=== PATIENT | female | born 1965 | race Caucasian/White ===

== ENCOUNTER 2018-11-05 16:57 | Emergency (ER) | payer SELFPAY ==
[2018-11-05 17:06] VITALS: BP 133/88; PULSE 90; RESP 16; TEMP 36.8; O2SAT 98
--- NOTE | 2018-11-05 18:03 | W.ED.GENAD ---
Discharge Plan Disposition Patient Disposition: HOME Discharge Details Chief Complaint: Cellulitis Primary Care Provider: Jemal Schmidt ED Provider: Bill Bush Home Meds and New Rx's Prescriptions: New cephalexin [Keflex] 500 mg capsule 500 mg PO QID 4 Days Qty: 16 RF: 0 doxycycline hyclate 100 mg tablet 100 mg PO BID 14 Days Qty: 28 RF: 0 Continued cyanocobalamin (vitamin B-12) [Vitamin B-12] 2,000 MCG tablet extended release 3,000 mcg PO DAILY RF: 0 ibuprofen 600 MG tablet 600 mg PO TID Qty: 30 RF: 0 trazodone 100 mg Tablet 100 mg PO QHS PRNRF: 0 Discharge Data Discharge Date/Time-TO BE ENTERED AT DEPARTURE: 11/05/18 18:29 Medical Decision Making Patient presenting to the emergency department chief complaint of rash to left inner thigh. Patient states that she felt she had a bug bite 2 and half weeks ago but now appears infected. She does states she has had this occur in the past. Physical exam shows a circular ecchymotic area surrounded by significant erythema. Patient states that erythema has spread significantly over the last 24 hours. Patient is unaware of specific type of bug that may have bit her but states due to itching she feels that it is an insect bite. Patient denies any known tick bites but states that this may also be a possibility. Given circular almost bull's-eye type nature of this tickborne illness is considered but patient denies any other systemic symptoms. Also of consideration is staph or strep infection. Given both these possibilities did offer testing to patient but due to patient not having insurance she declined these at this time. Plan to treat with Keflex for 5 days and doxycycline for 2 weeks to cover tickborne illness. Patient was agreeable to this plan of care. Return precautions were discussed along with follow-up to primary care if not improving. After discussion of diagnosis and plan of care patient has no further needs, questions, or concerns and states clear understanding to return to the emergency department for any worsening symptoms. HPI General Mode of arrival: ambulatory. Date/Time Provider Initiated Documentation: 11/05/18 17:24. Limitations to Documentation: no limitations. Information obtained by: patient and RN notes reviewed. History of Present Illness 52 year old F presents to the emergency department with the chief complaint of Infected bug bite, described as mild, with intensity rated at 4. Quality is described as burning and aching, and is localized to the left and lower extremity. Patient started experiencing this week(s) (2.5) and it has been constant. Patient notes no other symptoms.. Patient did receive the following treatments prior to arrival, none Related Data Home Medications Medication Instructions Recorded Confirmed cyanocobalamin (vitamin B-12) 3,000 mcg PO DAILY 12/25/13 11/05/18 [Vitamin B-12] ibuprofen 600 mg PO TID #30 tablet 05/19/15 11/05/18 cephalexin [Keflex] 500 mg PO QID 4 Days #16 cap 11/05/18 doxycycline hyclate 100 mg PO BID 14 Days #28 tab 11/05/18 trazodone 100 mg PO QHS PRN 11/05/18 11/05/18 Previous Rx's Medication Instructions Recorded ibuprofen 600 mg PO TID #30 tablet 05/19/15 cephalexin [Keflex] 500 mg PO QID 4 Days #16 cap 11/05/18 doxycycline hyclate 100 mg PO BID 14 Days #28 tab 11/05/18 Allergies Allergy/AdvReac Type Severity Reaction Status Date / Time Sulfa (Sulfonamide Allergy Severe Skin Rash Unverified 11/05/18 17:31 Antibiotics) pineapple Allergy Unverified 11/05/18 17:31 General Stated Complaint: Cellulitis RYLEE: 4 Review of Systems Constitutional Denies body ache(s), Denies fever(s) and Denies headache(s) ENT Denies headache(s) Musculoskeletal Denies myalgias, Denies arthralgias and Denies joint swelling Integumentary/Breasts Reports as per HPI, Denies erythema and Denies rash Neurologic Denies headache(s) and Denies paresthesias [facility] Social History Smoking/Tobacco Use Status: Current every day Alcohol Intake: current Alcohol Intake frequency: holidays/special occasions only Drug use: Never Details: tincture rub part THC, and CBC for knee pain Do you feel safe at home: Yes Do you feel safe in your relationship?: Yes Exam Const General: cooperative, comfortable, no acute distress and not ill appearing Orientation: alert, awake and oriented x3 Resp Effort & Inspection: normal respiratory effort and able to speak in complete sentences Skin General skin exam: erythema (To left inner thigh circular area with central ecchymosis), no fluctuance, no induration and purpura Neuro General: alert, awake and oriented x3 Course Vital Signs Temperature 36.8 C 11/05/18 17:06 Pulse 90 11/05/18 17:06 Respiratory Rate 16 11/05/18 17:06 Blood Pressure 133/88 11/05/18 17:06 Pulse Oximetry 98 11/05/18 17:06 Temperature 36.8 C 11/05/18 17:06 Temperature Source Temporal Artery Scan 11/05/18 17:06 Pulse 90 11/05/18 17:06 Respiratory Rate 16 11/05/18 17:06 Respiratory Effort Non-Labored 11/05/18 17:26 Blood Pressure 133/88 11/05/18 17:06 Blood Pressure Position Sitting 11/05/18 17:06 Pulse Oximetry 98 11/05/18 17:06 Oxygen Delivery Method Room Air 11/05/18 17:06 Oxygen Flow Rate 0 11/05/18 17:06
[2018-11-05] MEDS: Cephalexin 500 MG CAP 1500 MG PO (18:30)
[2018-11-05] MEDS: Doxycycline Hyclate 100 MG CAP PO (18:30)
== END 2018-11-05 18:29 | disposition home or self-care (01) ==
PROVIDERS: Emergency Provider Nurse Practitioner Family; PCP Internal Medicine
DX: L03.116 Cellulitis of left lower limb (principal)
CPT/HCPCS: 99283

== ENCOUNTER 2018-11-23 10:26 | Outpatient (CLI) | payer SELFPAY ==
--- NOTE | 2018-11-23 09:10 | DI.RAD_ITS ---
SYMPTOM/DIAGNOSIS: KNEE PAIN RIGHT KNEE: 11/23 Three views were obtained. There is marked narrowing of medial tibial femoral cartilaginous joint space with adjacent sclerosis and flattening of the tibial plateau and medial femoral condyle. There is slight medial femoral subluxation on the tibia. Prominent marginal osteophytes are noted involving the joints of the knee. Mild subchondral sclerosis of femur and tibia at the medial joint. 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
--- NOTE | 2018-11-23 09:10 | DI.RAD_ITS ---
SYMPTOM/DIAGNOSIS: LEFT KNEE PAIN LEFT KNEE 11/23 Three views were obtained. There is marked narrowing of the medial tibiofemoral cartilaginous joint space. There is subchondral sclerosis of tibial plateau medially. There are prominent marginal osteophytes of the joints of the knee. CONCLUSION: Severe DJD most marked involving medial tibial femoral joint,
== END 2018-11-23 10:46 ==
PROVIDERS: PCP Internal Medicine; Visit Provider Student in an Organized Health Care Education/Training Program
DX: M25.562 Pain in left knee (principal); M17.0 Bilateral primary osteoarthritis of knee; M25.762 Osteophyte, left knee; M25.561 Pain in right knee; M25.761 Osteophyte, right knee
CPT/HCPCS: 73562

== ENCOUNTER 2018-12-27 09:01 | Outpatient (CLI) | payer SELFPAY ==
--- NOTE | 2018-12-27 08:55 | DI.RAD_ITS ---
EXAM: XR STANDING ALIGNMENT INDICATION: pre-op right TKA. COMPARISON: No exams were available for comparison TECHNIQUE: 2D digital imaging was performed. FINDINGS: The leg length study reveals the left leg measures 8.2 cm. The right leg measures 8.7 cm. Note is m ny of degenerative changes involving both knees.
== END 2018-12-27 09:21 ==
PROVIDERS: PCP Internal Medicine; Visit Provider Physician Assistant
DX: M17.0 Bilateral primary osteoarthritis of knee (principal); M21.70 Unequal limb length (acquired), unspecified site
CPT/HCPCS: 77073

== ENCOUNTER 2018-12-27 09:19 | Outpatient (CLI) | payer SELFPAY ==
--- NOTE | 2018-12-27 07:59 | HPE_ITS ---
Assessment and Plan Assessment and plan (1) Primary osteoarthritis of right knee: Status: Chronic Assessment and plan: Plan: Patient does have history of white blistering skin rash following sulfa medications; denies any anaphylaxis reaction. Standin g alignment films ordered for preoperative planning. Educated patient on surgery covering surgical technique, recovery process, benefits and risks including but not limited to risk of infection, blood clot, damage to soft tissue/blood vessels/nerves in detail. After discussion patient gives verbal understanding of risks and elects to proceed with scheduling surgery. Patient had opportunity to have questions answered to their satisfaction. They will contact office if issues arise. Patient will continue to be scheduled for right total knee replacement with Dr. Vivar. In addition patient wishes to receive Depo-Medrol injection in her left knee at time of right total knee replacement. Will discuss patient's request with Dr. Vivar. History of Present Illness Narrative: Ms. Samayoa is a 53-year-old female who presents to clinic for pre- operative exam for scheduled right TKA. She has been experiencing bilateral knee discomfort with the right being slightly more aggravated. She is status post right knee arthroscopy by Dr. Crow ~10 years ago. Patient had been seen at [facility] for her bilateral knee pain and received an offloader brace for the right knee which helped to decrease her pain for a few years but no longer offers relief. In addition she has tried bilateral injections over >8 years ago without symptomatic improvement on the right and had some relief on the left knee. She continues to experience bilateral knee pain that is aggravated with descending hills/stairs and walking on uneven ground. She also experiences stiffiness in the morning that is worse with prolonged time on her feet. Her right knee will also swell and feels like there is a lateral shift with her tibia that causes her to be off balance. Denies any recent falls or injuries. Previously she had been experiencing a pain that radiated down her calf but states it is not occurring now due to changing her shifts to work at night instead. Due to her continued discomfort despite injections, bracing and adapting activity she was offered and elected to proceed with right TKA. Patient reports over the past month her left knee has been aggravating her more severely. Patient is interested in receiving a Depo-Medrol injection in her left knee at time of right total knee replacement. Pertinent Surgical Information Denies past medical history of: Hypertension, stroke, cardiac issues, angina, asthma, COPD, sleep apnea, renal issues, liver issues, hepatitis, gastrointes tinal issues, ulcers, hyperlipidemia, bleeding disorders, seizures, migraines, anxiety, diabetes, autoimmune disorders, thyroid issues Denies prior complications from surgery or anesthesia. Review of Systems Constitutional Constitutional: Denies fever(s), Denies frequent falls and Denies headache(s) Eyes Eyes: Denies change in vision ENT Ears, Nose, Mouth, and Throat: Denies dizziness, Denies ear discharge, Denies headache(s), Denies epistaxis, Denies nasal discharge, Denies sinus pain, Denies sinus pressure and Denies sore throat Cardiovascular Cardiovascular: Denies chest pain, Denies rapid heart rate, Denies irregular heart rhythm, Denies dyspnea, Denies dyspnea on exertion, Denies orthopnea, Denies paroxysmal nocturnal dyspnea and Denies slow heart rate Respiratory Respiratory: Reports cough (more recent wet cough as she has been cutting back on smoking), Denies dyspnea, Denies dyspnea on exertion and Denies wheezing Gastrointestinal Gastrointestinal: Denies abdominal pain, Denies melena, Denies hematochezia, Denies constipation, Denies diarrhea, Reports nausea and Reports vomiting Comments: Reports one day of vomiting and nausea last week and was okay the following day; denies any fevers Denies any current symptoms of nausea or vomiting Genitourinary Genitourinary: Denies hematuria, Denies dysuria and Denies urinary urgency Musculoskeletal Musculoskeletal: Reports as per HPI, Denies numbness and Denies tingling Neurologic Neurologic: Denies dizziness, Denies frequent falls, Denies headache(s), Denies numbness and Denies tingling Psychiatric Psychiatric: Denies anxiety and Reports depression Allergic/Immunologic Allergic/Immunologic: Denies wheezing PFSH Medical History Depression (Chronic) Heart murmur (Acute) 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 Denies any other provider commenting Seasonal allergies (Chronic) Smoker (Chronic) Surgical History Lipoma of back (Acute) Excision ~2009 Previous section (Chronic) x2 Status post arthroscopy of right knee (Acute) Social History (Updated 12/27/18 @ 12:34 by Cathy Patiño) Smoking/Tobacco Use Status: Current every day Alcohol Intake: current Alcohol Intake frequency: holidays/special occasions only Drug use: Never Details: tincture rub part THC, and CBD for knee pain Current gender identity: female Do you feel safe at home: Yes Do you feel safe in your relationship?: Yes Meds Home Medications and Allergies Home Medications Medication Instructions Recorded Confirmed Type cyanocobalamin (vitamin B-12) 3,000 mcg PO DAILY 12/25/13 12/27/18 History [Vitamin B-12] ibuprofen 600 mg PO TID #30 tab 05/19/15 12/27/18 Rx trazodone 100 mg PO QHS PRN 11/05/18 12/27/18 History oxycodone-acetaminophen 5 mg-325 1 tab PO BID PRN PRN tab 12/27/18 12/27/18 History mg tablet Allergies Allergy/AdvReac Type Severity Reaction Status Date / Time Sulfa (Sulfonamide Allergy Intermediate Skin Rash Unverified 12/27/18 09:33 Antibiotics) pineapple Allergy Other (See Unverified 12/27/18 09:33 Comment) Exam Const General: cooperative and no acute distress [facility] Head: normal to inspection, normocephalic and atraumatic Ears: external ears normal General nose exam: external nose normal and no nasal discharge Face and sinus: face symmetric Mouth: oral mucosae normal, lip normal, tongue normal and moist mucous membranes Teeth and gingiva: fair dentition Throat: posterior oropharynx normal Eyes General: appearance normal, both eyes and all related structures Pupils: PERRL EOM: EOM intact bilaterally Neck Neck: trachea midline Carotids: normal carotid upstroke Lymphatic: no lymphadenopathy noted Resp Effort & Inspection: normal respiratory effort and able to speak in complete sentences Auscultation: clear to auscultation bilaterally, no rales, no rhonchi and no wheezes Cardio Heart Sounds: S1 normal, S2 normal and no murmurs (No murmurs appreciated by provider's examination today) Pulses: radial pulses present bilaterally GI Palpation: soft, no hepatosplenomegaly and nontender Auscultation: normal bowel sounds Skin General skin exam: no rashes or lesions noted Results Labs Result diagrams: 12/27/18 10:30 12/27/18 10:30
[2018-12-27 10:38] LABS: HCT 43.2 % (36.0-46.0); HGB 14.6 g/dL (12.0-15.5); Mean Corp. HGB Concentration 33.8 g/dL (32.0-36.0); Mean Corpuscular Hemoglobin 31.1 pg (27.0-33.0); Mean Corpuscular Volume 91.9 fL (80-95); Mean Platelet Volume 9.8 fL (8.0-11.0); Platelet Count 248 x1000/uL (130-400); RBC Distribution Width 12.8 % (11.7-14.6); White Blood Cell Count 7.31 k/cumm (4.4-10.8)
[2018-12-27 11:48] LABS: Anion Gap 8.6 mmol/L (3-11); BUN 15 mg/dL (7-18); CO2 27.4 mmol/L (21.0-32.0); CREATININE 0.69 mg/dL (0.55-1.02); Calcium 8.9 mg/dL (8.5-10.1); Chloride 104 mmol/L (98-107); Glucose 105 mg/dL (70-100); Potassium 4.4 mmol/L (3.5-5.1); Sodium 140 mmol/L (136-145)
== END 2018-12-27 09:39 ==
PROVIDERS: PCP Internal Medicine; Visit Provider Student in an Organized Health Care Education/Training Program
DX: M25.561 Pain in right knee (principal); M17.11 Unilateral primary osteoarthritis, right knee; Z01.818 Encounter for other preprocedural examination; Z01.812 Encounter for preprocedural laboratory examination
CPT/HCPCS: 36415; 80048; 85027; NC

== ENCOUNTER 2019-01-03 05:53 | Inpatient (IN) | payer SELFPAY ==
--- NOTE | 2018-12-27 16:37 | PDOC.CMPRO ---
- If Service Date Differs Date of service: 12/27/18 Time of Service: 16:37 Care Management Progress Note CM met with Yoselin today during her pre op appointment. Yoselin lives in a single level home in [place] with her S/O Lele. She has two children who live locally and are supportive. 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 She does not have insurance, but is planning to enroll in [place] state insurance during open enrollment. Yoselin stated that she is currently receiving 100% financial assistance from the hospital. Her primary care office is the [facility]. Yoselin does not currently own any medical equipment, and believes she will only need crutches post surgery. CM explained that PT and the MD often recommend a FWW, which CM will coordinate if the need is present. She does not receive any services in the community as she is independent with ADL's. CM provided a blank copy of the [place] state AD, as requested by Yoselin. Yoselin is interested in the portal and will sign up on her own. Anticipate Yoselin will discharge home post surgery with no additional services. Lele will drive her home via private vehicle when she is medically cleared.
[2019-01-03] VITALS (11 sets, daily range): BP systolic 111–169; BP diastolic 66–95; PULSE 57–78; RESP 14–19; TEMP 36.4–37.3; O2SAT 95–99
[2019-01-03] MEDS: Lactated Ringers 1,000 ML 80 ML IV ×3 (06:35→18:09)
[2019-01-03] MEDS: Celecoxib 200 MG CAP 400 MG PO (06:35)
[2019-01-03] MEDS: Acetaminophen 500 MG TAB 1000 MG PO ×3 (06:36→19:31)
[2019-01-03] MEDS: Gabapentin 300 MG CAP PO (06:36)
[2019-01-03] MEDS: Bupivacaine 0.25% Pres-Free 30 ML VIAL ×2 (07:21→09:01)
[2019-01-03] MEDS: ceFAZolin 3,000 MG in Normal Saline 100 ML 200 ML IVPB (07:31)
[2019-01-03] MEDS: Bupivacaine 0.5% Pres-Free 30 ML VIAL (08:00)
[2019-01-03] MEDS: methylPREDNISolone ACETATE 80 MG/ML VIAL (08:32)
[2019-01-03] MEDS: Ketorolac 30 MG/ML VIAL (09:01)
[2019-01-03] MEDS: Normal Saline 50 ML (09:01)
--- NOTE | 2019-01-03 14:28 | IN_ITS ---
Date of service: 01/03/19 Time of Service: 12:55 PT Notes Inpatient Physical Therapy Evaluation Date: 01/03/2019 Referring Doctor: Henry Vivar MD PT Orders: PT CONSULT: s/p R TKA Precautions: Fall. Standard. WBAT on R LE. Patient Profile/Admitting Diagnosis: Patient is a 53-year-old female s/p R TKA due to primary osteoarthritis on POD 0. 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 She was independent with all aspects of ADLs without an assistive ambulatory device nor adaptive equipment [employer]. 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 Equipment Owned/DME: None. Subjective: Patient reports 2/10 pain and says she feels good. She reports severe anxiety last night before surgery and states she lost a lot of sleep. She says she was dry heaving early this morning before coming to the hospital. She denies headache, dizziness, lightheadedness and agrees to PT evaluation. Objective: General Observation: Patient is seen laying supine in bed with HOB elevated. She has disconnected antithromboembolic devices bilaterally and an IV in the R UE. Cryocuff on R knee. CARMEN wraps to R knee. Mental Status: Alert and oriented x 4 Pain: 2/10 ROM: Right Lower Extremity: Hip flexion WFL. Hip abduction WFL. Knee flexion 95 degrees. Knee extension at -12 degrees. Ankle dorsiflexion WFL. Ankle plantarflexion WFL. Left Lower Extremity: Hip flexion WFL. Hip abduction WFL. Knee flexion WFL. Ankle dorsiflexion WFL. Ankle plantarflexion WFL. Strength: Right Lower Extremity: Hip flexors 4/5. Hip abductors 5/5. Knee flexors 2+/5. Knee extensors 3/5. Ankle dorsiflexors 5/5. Ankle plantarflexors 5/5. Left Lower Extremity:Hip flexors 4/5. Hip abductors 5/5. Knee flexors 5/5. Knee extensors 5/5. Ankle dorsiflexors 5/5. Ankle plantarflexors 5/5. Bed Mobility/Transfers: Rolling Independent Supine to sit Independent Sit to supine Independent Sit to stand SBA Stand to sit SBA Bed to chair CGA Chair to bed CGA Gait: Patient ambulated 30? with FWW and CGA. She exhibited a step-to gait pattern with decreased step length, pratima, and overall gait velocity. Balance: Static Sitting: Normal Dynamic Sitting: Normal Static Standing: Good Dynamic Standing: Fair Special Tests: Mobility Limitations Standardized Measure [facility] AM-PAC 6 clicks Basic Mobility Inpatient Short Form: Raw Score: 21 CMS Score: 33% Informed Consent/Education: Patient instructed in purpose of PT consult and plan of care. Assessment: Patient is a 53 year old woman s/p R TKA due to primary osteoarthritis POD 0. She is WBAT to R LE. She lives in a one story home with her , Lele. Her pain is well managed, and she was able to ambulate 30? with FWW and CGA. She exhibited decreased strength and ROM in the R LE, but is confident in her abilities to return home within the next day or two. Her prognosis is good. Patient presents with clinical signs and symptoms consistent with current/admitting diagnoses that have resulted to mobility limitations, gait instability, generalized weakness, and impairment of motor control as demonstrated by the following impairment level findings: 1. Decreased strength to B LE major muscle groups 2. Impaired sitting/standing balance 3. Impaired activity tolerance 4. Limitation of joint range of motion in R knee flexion/extension. Impairments are contributing to the following functional limitations: 1. Dependent bed mobility skills 2. Increased dependence with transfers 3. Inability to safely ambulate without assistive device and physical assistan ce 4. Increase completion time for mobility ADL performance 5. Increased fall risk 6. Inability to negotiate steps alone safely Patient is assessed as a 52155 moderate complexity based on the following: History: Patient is a 53-year-old female s/p R TKA due to primary osteoarthritis on POD 0. Examination: Demonstrable impairment in strength, balance, and range of motion with underlying impairments and functional limitations as documented above Presentation: Evolving Decision Makin moderate complexity Goals: Goals X1 week 1. Sit-Stand independent 2. Stand-Sit independent 3. Bed-Chair independent 4. Chair-Bed independent 5. Independent gait on level surface with use of least restrictive device for at least 300 feet without report of pain nor dyspnea 6. Independent stair negotiation while holding onto bilateral rails for at least 10 steps without report of pain nor dyspnea 7. Independent with home exercise program 8. Good static and dynamic standing balance/tolerance Plan of Care/Treatment Plan: 1-2x/day, 7 days/week x 1 week. Plan of care has been reviewed with the [employer]ING [employer]ACH[employer] providing the service under Physical Therapy direction. Initiate Physical Therapy intervention for strengthening, bed mobility, transfers, gait, stairs, balance training, use of assistive device. DISCHARGE RECOMMENDATIONS: Patient is to be discharged to home under the care of her once all of the above goals are met, and she is medically stable. She will need a FWW for ambulation at home. TREATMENT CODE/TIME: 47121 x 22 minutes beginning at 12:55 PM. Thank you very much for this referral. Jonnathan Riggins, [facility] With the supervision of: Rosette Shafer PT, DPT, CLT [facility]
[2019-01-03] MEDS: oxyCODONE 5 MG TAB PO (18:08)
[2019-01-03] MEDS: Celecoxib 200 MG CAP PO (19:32)
[2019-01-03] MEDS: Aspirin E.C. 81 MG TABEC PO (19:32)
[2019-01-03] MEDS: Calcium Carbonate *TUMS* 500 MG CHEW PO (20:53)
--- NOTE | 2019-01-03 21:01 | W.PM.OP ---
Date of service: 01/03/19 Time of Service: 10:02 Operative Note Operative Note DATE OF PROCEDURE: 01/03/19 PRE-OP DIAGNOSIS: Right and Left Knee Osteoarthritis POST-OP DIAGNOSIS: same PROCEDURE: Right Total Knee Replacement and Left Knee Injection SURGEON: Henry Vivar WELL CONTROL INSTRUCTOR: Cathy Patiño ANESTHESIA: regional and spinal ESTIMATED BLOOD LOSS: 150 PATHOLOGY: none sent TOURNIQUET TIME: 29 COMPLICATIONS: None Patient was transported to: PACU Patient's condition: stable Implants: 1. Depuy Attune Posterior Stabilized Femoral Component, Size 6 Narrow 2. Depuy Attune Fixed Platform Tibial Component, Size 4 3. Depuy Attune 6x6 Fixed, Stabilized Poly 4. Depuy Attune Patellar Component, Size 35mm Indications: I have seen Yoselin in clinic for symptoms of RIGHT knee arthritis, confirmed with radiographic findings. Yoselin has exhausted nonoperative methods and was having significant limitations in daily function and desired better function and less pain. I discussed the technical details of a knee replacement. I explained the risks of the procedure to include, but not limited to, bleeding, infection, pain, stiffness, fracture, damage to nerves and vessels, damage to muscles and tendons, loosening, need for repeat procedure, blood clot and cardiopulmonary demise. Despite these risks, Yoselin elected to proceed. Yoselin has been having some increasing left knee pain and requested an injection to help with the arthritic pain. Findings: There was significant signs of arthritis throughout the knee. Right knee was replaced without difficulty. Left knee was injected. Procedure Description: Yoselin was greeted in the preoperative holding area where the correct side was identified and marked. The consent was reviewed with the patient and signed. The history and physical was updated. All questions were answered. Preoperative mediacations were administered: Acetaminophen 1000mg, Celebrex 400mg, and Gabapentin 300mg. An adductor canal block was then administered by the anesthesia team in the PACU. Yoselin was taken back to the operating room. A spinal anesthestic was then administered. The patient was placed into the supine position on the operating room table. A nonsterile tourniquet was placed high onto the leg but only used for cementing. Posts were placed for positioning during the procedure. All bony prominences were well padded. Prophylactic antibiotics in the form of Cefazolin were administered. 1g of Tranxemic Acid was given intravenously within 30 minutes of incision. The right leg was then prepped with Chloraprep and draped in a standard fashion with impervious stockinette and extremity drape with Iodine impregnated skin protection. A timeout to confirm correct identity, side and site, procedure, allergies, anesthesia, and medical concerns was performed. With the knee in some flexion, a midline incision was made overlying the knee. Full thickness skin flaps were raised once the extensor mechanism was encountered. These were raised medially and laterally. Any bleeding was controlled with electrocautery. Once the extensor mechanism was fully exposed, a medial parapatellar arthrotomy was performed in a flexed position. All bleeding from the arthrotomy and the geniculate arteries was coagulated. A medial subperiosteal peel was performed with electrocautery to the midcoronal plane. Due to the significant varus deformity the entire medial tibial plateau was exposed. The fat pad was removed while keeping the patellar tendon protected. The anterior distal femur synovium was removed for later visualization. The ACL and PCL were resected and the anterior horn of the lateral meniscus was transected. The knee was then flexed with the patella everted. Large osteophytes from the tibia were removed. Large osteophytes from the femur were removed. Using a step drill, and based on preoperative templating, the femoral canal was entered. This was done with a step drill without any difficulty. The intramedullary distal femoral cut guide was inserted, set to a 5 degree valgus cut and 9mm cut thickness. The distal femoral cut guide was then held in position and pinned. With the soft tissues protected, the distal cut was performed. This was passed over a few times to ensure a planar cut. I then turned attention to the tibia. The extramedullary guide was placed onto the leg. The distal aspect was slid medial to adjust for position of center of ankle and stay in line with shaft of the tibia. Approximately 3-5 degrees of posterior slope was kept in the proximal cutting guide. The center of the guide was aligned with the PCL. The stylus was used to assess cut thickness. The medial side, most involved side, was set for a 4mm cut. This was then held in position and pinned into place with 2 additional pins and a cross pin for stability. The medial and lateral collateral ligaments were protected and the cut was performed. With this completed, it was assessed and noted to be of appropriate dimensions. The guide was removed. A spacer block was inserted and the knee was brought into extension. The 6mm spacer block provided full extension, without hyperextension and with stability of both the medial and lateral collateral ligaments was assessed. The pins from the femur and the tibia were then removed. The distal femur was then sized. The anterior stylus was placed onto the lateral ridge of the anterior femur. This indicated a size 6 femur. The external rotation of the guide was adjusted to 3 degrees to match the epicondylar axis, perpendicular to Lorenzo?s line. The 4-in-1 cutting guide was the placed. The posterior medial femur cut was evaluated and appeared of good thickness. The spacer block was inserted underneath the cutting guide and stability was confirmed in 90 degrees of flexion. An sd wing was used to confirm appropriate position of the anterior cut to avoid notching. This cutting guide was ensured to be flush on the cut surface and then pinned into place with headed pins. While protecting the soft tissues, quad tendon, and collateral ligaments, the anterior and posterior cuts were performed with a saw. The central two pins were removed and the posterior and anterior chamfers were cut next. The notch-cutting guide was placed. This was pinned to lateralize the femoral component as much as possible while keeping it flush on the cut surface. This was then pinned into position. A reciprocating saw was used to make the notch cut. A rasp smoothed the cut surfaces. A trial posterior stabilized femoral component was then inserted, impacted down to the cut surfaces, and the lug holes were drilled. A provisional trial tibial component was placed and the knee was brought through range of motion. There was noted to be excellent extension and flexion. There was no significant instability. The patella was tracking without thumbs. The tibial cut surface was fully exposed. The medial and lateral menisci were removed. The tibia was then sized as a 4. The tibia had been previously marked during trialing to correspond to the center of the tibial component to help with rotation. The trial was aligned to this vicki, approximately rotated to the medial 1/3rd of the tibial tubercle. The trial was pinned into place. The tibia was prepared with a reamer and a keel punch. The knee was then brought into extension and the patella was measured as 25mm. Using the patellar clamp and cut guide, this was resected to a flat surface with at least 13mm of thickness remaining. The size 35 patella fit the best. This was oriented and then clamped into position. The lugs were drilled. The trial components were removed. The final components, except for the polyethylene were opened on the back table. The periosteal and capsular tissues, especially posteriorly, around the knee were then systematically injected with a periarticular cocktail consisting of 50cc 0.25% Marcaine, 30mg Ketorolac, 20cc of Exparal and 50cc of injectable saline. The tourniquet was then inflated to 275mmHg. The knee was thoroughly irrigated with a pulse lavage and dried. On the back table, with the implants opened, the cement was mixed. 2 batches of antibiotic laden cement were prepared with vacuum assistance. After the cement was ready a small amount was placed on to the back side of the tibial component at the keel. A small amount was placed onto the posterior flange of the femur. Cement was manual pressurized and impregnated into the cut surface of the tibia. The tibial component was then inserted into the cut surface and impacted into position. Excess cement was removed and the component was reimpacted. Again, excess cement was removed and our attention was then turned to the femur. The femoral cut surface was once again dried and cement was manually impacted into the cut surface. The femoral component was lined with the lug holes and impacted. Excess cement was removed. It was ensured to be down against the cut surface. The trial polyethylene was then inserted and the leg was brought out into full extension for the duration of the cement curing process, approximately 15min. Cement was lastly manually impacted into the cut surface of the patella and the patellar button was clamped into position and held. During this process attention was turned to the gutters of the knee and for all interfaces for any excess cement. After the cement had finally cured, approximately 15min, the clamp was removed from the patella and the knee was taken through range of motion. A size 6mm polyethylene component provided the best range of motion and stability with less than 2mm gapping with medial and lateral stress and full extension without significant hyperextension. The patella was tracking with a no-thumbs technique. The trial poly was removed and once again the knee was checked for any loose, excess, or errant cement. The poly component was then inserted and impacted into position after cleaning and drying the tibial tray. The capsule was then reapproximated with a No. 1 Vicryl at multiple locations. The capsule was finally closed with a No. 2 Stratafix, barbed suture. The tourniquet was then released and the arthrotomy appeared watertight without significant bleeding. The second dosing of 1g TXA was started. Deep tissues were then reapproximated with 0 Vicryl and 2-0 Vicryl. The skin was closed with a running 3-0 Monocryl in a subcuticular fashion. This was reinforced with skin glue. A Mepilex silver dressing was applied along with a [id number] CARMEN wrap. The superior border of the left patella was prepped with alcohol. Using a 22-gauge needle I injected left knee with 8cc of 0.5% bupivacaine and 80 mg of DepoMedrol. A CryoCuff was applied. Yoselin was transferred to the hospital bed without difficulty an suffering no apparent complication. Yoselin has a good prognosis. Physical therapy will start today and without restrictions, weight-bearing as tolerated. Aspirin 81mg BID will be used for DVT prophylaxis.
[2019-01-03] MEDS: traZODone 100 MG TAB PO (22:50)
[2019-01-04 00:11] VITALS: BP 155/74; PULSE 90; RESP 18; TEMP 37.8; O2SAT 94
[2019-01-04 04:15] VITALS: BP 135/69; PULSE 68; RESP 18; TEMP 37.1; O2SAT 95
[2019-01-04] MEDS: oxyCODONE 5 MG TAB PO ×2 (04:23→08:54)
[2019-01-04 07:55] VITALS: BP 130/89; PULSE 66; RESP 16; TEMP 36.5; O2SAT 96
[2019-01-04] MEDS: Pantoprazole 40 MG TABCR PO (08:02)
[2019-01-04] MEDS: Acetaminophen 500 MG TAB 1000 MG PO (08:02)
[2019-01-04] MEDS: Aspirin E.C. 81 MG TABEC PO (08:02)
[2019-01-04] MEDS: Celecoxib 200 MG CAP PO (08:02)
--- NOTE | 2019-01-04 08:16 | DSE_ITS ---
Date of service: 01/04/19 Time of Service: 08:16 DS: Diagnosis Discharge Diagnosis (1) Primary osteoarthritis of right knee: Status: Chronic Discharge Plan Disposition Patient Disposition: HOME Condition: Good Discharge Details Reason For Visit: Right Knee Replacement Admit Date/Time: 01/03/19 05:53 Admit Provider: Henry Vivar Attending Provider: Henry Vivar Primary Care Provider: Jemal Schmidt [facility] Hospital Course: Patient was admitted to the medical/surgical floor following the procedure. It was tolerated well without any notable medical, surgical, or anesthetic complications. Mobilization began postoperatively. The vasquez catheter was removed and voiding spontaneously. Vitals were stable. Physical therapy worked with the patient and was cleared for discharge home. No acute medical issues. Home Meds and New Rx's Prescriptions: New aspirin 81 mg tablet,delayed release (DR/EC) 81 mg PO BID Qty: 60 RF: 0 acetaminophen 500 mg tablet 1,000 mg PO Q8H PRN (Reason: pain) Qty: 90 RF: 3 pantoprazole 40 mg tablet,delayed release (DR/EC) 40 mg PO DAILY Qty: 30 RF: 0 ibuprofen 600 mg tablet 600 mg PO TID PRNQty: 90 RF: 3 oxycodone 5 mg tablet 5 mg PO Q4H Qty: 18 RF: 0 Continued cyanocobalamin (vitamin B-12) [Vitamin B-12] 2,000 MCG tablet extended release 3,000 mcg PO DAILY RF: 0 trazodone 100 mg Tablet 100 mg PO QHS PRNRF: 0 Discontinued oxycodone-acetaminophen [Percocet] 5-325 mg tablet 1 tab PO BID PRN PRNRF: 0 ibuprofen 600 MG tablet 600 mg PO TID Qty: 30 RF: 0 Discharge Instructions Additional Instructions: Dr. Vivar?s Total Knee Discharge Instructions Activity: The most important activity is to walk. You should try to take short walks a few times a day. It is important that when resting you work on keeping the knee straight. Avoid putting a pillow behind the knee as this will encourage flexion. Work on range of motion exercises as provided by Physical Therapy. - Start outpatient physical therapy within 2 weeks. - You should wear the RUSSELL hose on both legs for 2 weeks. Dressing: Keep the surgical dressing in place for at least one week. After the first week it may be removed and replace with light gauze and tape or nothing. It may get wet after 3 days but avoid soaking the dressing. If it gets wet, just lightly pat dry. Medications: - You should take Tylenol and anti-inflammatory Ibuprofen as your primary pain control medications - You have been prescribed a stronger pain medication Oxycodone for breakthrough pain, take as needed as prescribed. - You have also been prescribed a stomach acid reduction agent Pantoprozole to help reduce stomach acid and reflux. - You will be taking Aspirin 81mg twice a day for DVT prevention unless instructed otherwise. - If you have constipation you should take Colace or Miralax (both [id number]). It takes most people 3-4 days to have a bowel movement. Follow-up: 2 weeks Referrals: Henry Vivar MD [ [facility]] - [facility] [Provider Group] (Please schedule PT to start at 2 weeks post-op) Activity:: Activity as Tolerated Equipment/Supplies:: Walker Diet:: As Tolerated Discharge Orders Discharge Orders: Discharge Order (Routine); Ordered 01/04/19 Ordered By: Henry Vivar DS: Summary Status at Discharge Functional status at discharge: uses cane/walker Overall status at discharge: patient is progressing back to baseline Mental Status: mental status grossly normal Speech and Movement: speech and movement normal Mood: congruent mood Affect: normal affect Exam Psych Mental Status: mental status grossly normal Speech and Movement: speech and movement normal Mood: congruent mood Affect: normal affect DS: Data Vitals/I&O Vitals and I&O: Vital Signs Temperature 37.1 C 01/04/19 04:15 Temperature Source Tympanic 01/04/19 04:15 Pulse 68 01/04/19 04:15 Pulse Rhythm Regular 01/04/19 03:55 Respiratory Rate 18 01/04/19 04:15 Respiratory Effort Non-Labored 01/04/19 03:55 Respiratory Depth Normal 01/04/19 03:55 Respiratory Pattern Normal 01/04/19 03:55 Blood Pressure 135/69 01/04/19 04:15 Pulse Oximetry 95 01/04/19 04:15 Respiratory End-tidal CO2 35 01/03/19 11:00 Oxygen Delivery Method Room Air 01/04/19 04:15 Oxygen Flow Rate 0 01/04/19 04:15 Pain Level 5 01/04/19 08:02 Comment 01/04/19 00:11 Intake & Output 01/03/19 01/03/19 01/04/19 11:59 23:59 11:59 Intake Total 1840 / 2900 1060 / 2900 1000 / 1000 Output Total 200 / 650 450 / 650 1250 / 1250 Balance 1640 / 2250 610 / 2250 -250 / -250 Weight 126.7 kg Intake: IV 1720 / 2420 700 / 2420 1000 / 1000 Oral 120 / 480 360 / 480 Output: Urine 50 / 500 450 / 500 1250 / 1250 Estimated Blood Loss 150 / 150 Other: Urine Color Yellow Yellow Yellow Urine Appearance Cloudy Clear Clear Urine Odor None Strong Emesis Description None Voiding Methods Toilet Bedside Commode [facility] Medical History Depression (Chronic) Heart murmur (Acute) 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
--- NOTE | 2019-01-04 12:49 | PT.INTREAT ---
Date of service: 01/04/19 Time of Service: 12:49 PT Notes Inpatient Physical Therapy Treatment Note [facility] Date: 01/04/19 PRECAUTIONS: Fall, WBAT R SUBJECTIVE: Yoselin is agreeable to participating in PT, stating that she is hopeful that she will be able to return to home later today. OBJECTIVE: PAIN: Patient c/o R knee discomfort with ther ex and gait training BED MOBILITY/TRANSFERS Supine-sit: I Sit-supine: I Sit-stand: I Stand-sit: I GAIT Assistive Device: FWW Weight bearing: WBAT R Assist: S Distance: 200' THEREX: Patient completed a LE strengthening and stabilization program, in a supine position, as per flow sheet. ASSESSMENT: Patient tolerated session well with minimal c/o increased R knee discomfort with gait training and ther ex. Patient was able to tolerate a progression in gait distance with FWW support and supervision. Se would benefit from continued gait training as well as strengthening for improved mobility and activity tolerance. PLAN: Continue with PT's POC TREATMENT CODE/TIME: 25 minutes; 80881, [id number]
--- NOTE | 2019-01-04 15:48 | PDOC.CMIN ---
- If Service Date Differs Date of service: 01/04/19 Time of Service: 15:48 Care Management Initial Assess REASON FOR HOSPITALIZATION:: Total R Knee replacement PAST MEDICAL HISTORY/PAST SURGICAL HISTORY:: Medical History. Depression (Chronic). Heart murmur (Acute). 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 Denies any other provider commenting. Seasonal allergies (Chronic). Smoker (Chronic). Surgical History. Lipoma of back (Acute). Excision ~2009. Previous section (Chronic) x2. Status post arthroscopy of right knee (Acute) PREVIOUS FUNCTIONAL STATUS/SOCIAL/FAMILY SUPPORTS:: Yoselin lives in [place] in a one story home with her boyfriend, Lele. 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 She has two adult children, Mckenzie and Mo. Her sister lives in [place], but is identified as a support as well. She is independent at baseline. CURRENT FUNCTIONAL STATUS:: Yoselin was sitting up on her bed when CM met with her. She stated that she is feeling great today. She reported that she is a little sore, which she expected. She inquired about obtaining a FWW, which CM looked into for her, but she does not have insurance that will cover it, so she opted to purchase one elsewhere. She reported that she will be discharging today, per Dr. Vivar. CM will follow. ADVANCE DIRECTIVES:: None on file. Has patient been provided with information about the portal?: Yes Did the patient sign up for the portal?: No (will sign up) CODE STATUS:: Full Code INSURANCE COVERAGE / FINANCIAL ISSUES:: Self Pay/Fin Assist 100% CURRENT HOME/COMMUNITY SERVICES/EQUIPMENT:: Yoselin owns a 4WW currently. She will be purchasing a FWW elsewhere. PRIMARY CARE PHYSICIAN:: Jemal Schmidt POTENTIAL DISCHARGE NEEDS:: Evaluation for further needs, follow up appointments with ortho and PT PATIENT/FAMILY EDUCATION NEEDS:: Review discharge instructions including activity levels and medication, discussion of self care needs including Ask Me Three ANTICIPATED BARRIERS TO DISCHARGE:: None identified at this time. TRANSPORTATION:: Yoselin Royal's S/O will be driving her home via private vehicle. PLAN:: Anticipate Yoselin will return home with no additional services. She will have a follow up appointment with ortho, as recommended. Lele, her S/O will drive her home via private vehicle. CM will follow.
--- NOTE | 2019-01-04 16:12 | PDOC.CMDIS ---
- If Service Date Differs Date of service: 01/04/19 Time of Service: 16:12 LACE Index Scoring Tool - Questions: Length of Stay (in days): 2 Acuity (Admit via E.D.?): No E.D. Visits: 1 - Answers: Total Score: 3 Risk of Readmission: Low Risk Care Management Discharge Reason for Hospitalization: Total R Knee replacement Discharge Plan: Yoselin will return home with no additional services. She will have a follow up appointment with ortho, as recommended. Lele, her S/O will drive her home via private vehicle. Patient/Family Education Needs: Review discharge instructions regarding activity levels and medication, discussion of self care needs including Ask Me Three
--- NOTE | 2019-01-08 08:13 | INDS_ITS ---
Date of service: 01/08/19 PT Notes Inpatient Physical Therapy Discharge Summary Dates: 01/08/2019 Dates of Service: 01/03/2019 through 01/04/2019 Referring Doctor: Henry Vivar MD PT Orders: PT CONSULT: s/p R TKA Precautions: Fall. Standard. WBAT on R LE. Patient Profile/Admitting Diagnosis: Patient is a 53 year old female s/p R TKA due to primary osteoarthritis POD 1. WBAT R. Subjective: NT Objective: NT ROM: Right Lower Extremity: Hip flexion WFL. Hip abduction WFL. Knee flexion 95 degrees. Knee extension at -12 degrees. Ankle dorsiflexion WFL. Ankle plantarflexion WFL. Left Lower Extremity: Hip flexion WFL. Hip abduction WFL. Knee flexion WFL. Ankle dorsiflexion WFL. Ankle plantarflexion WFL. Strength: Right Lower Extremity: Hip flexors 4/5. Hip abductors 5/5. Knee flexors 2+/5. Knee extensors 3/5. Ankle dorsiflexors 5/5. Ankle plantarflexors 5/5. Left Lower Extremity:Hip flexors 4/5. Hip abductors 5/5. Knee flexors 5/5. Knee extensors 5/5. Ankle dorsiflexors 5/5. Ankle plantarflexors 5/5. Bed Mobility/Transfers: Rolling Independent Supine to sit Independent Sit to supine Independent Sit to stand Independent Stand to sit Independent Bed to chair Independent Chair to bed Independent Gait: Patient ambulated 200? with FWW and supervision. She exhibited a step-to gait pattern with decreased step length, pratima, and overall gait velocity. Balance: Static Sitting: Normal Dynamic Sitting: Normal Static Standing: Good Dynamic Standing: Fair Assessment: Patient is a 53 year old woman s/p R TKA due to primary osteoarthritis POD 0. She is WBAT to R LE. She lives in a one story home with her , Lele. Her pain is well managed, and she was able to ambulate 200? with FWW and CGA POD 1. She exhibited decreased strength and ROM in the R LE, but is confident in her abilities to return home. Her prognosis is good. Patient presents with clinical signs and symptoms consistent with current/admitting diagnoses that have resulted to mobility limitations, gait instability, generalized weakness, and impairment of motor control as demonstrated by the following impairment level findings: 1. Decreased strength to B LE major muscle groups 2. Impaired sitting/standing balance 3. Impaired activity tolerance 4. Limitation of joint range of motion in R knee flexion/extension. Impairments are contributing to the following functional limitations: 1. Dependent bed mobility skills 2. Increased dependence with transfers 3. Inability to safely ambulate without assistive device and physical assistance 4. Increase completion time for mobility ADL performance 5. Increased fall risk 6. Inability to negotiate steps alone safely Goals: Goals X1 week 1. Sit-Stand independent MET 2. Stand-Sit independent MET 3. Bed-Chair independent NOT MET 4. Chair-Bed independent NOT MET 5. Independent gait on level surface with use of least restrictive device for at least 300 feet without report of pain nor dyspnea NOT MET 6. Independent stair negotiation while holding onto bilateral rails for at least 10 steps without report of pain nor dyspnea NOT MET 7. Independent with home exercise program MET 8. Good static and dynamic standing balance/tolerance NOT MET Plan of Care/Treatment Plan: DISCHARGE RECOMMENDATIONS: Patient is to be discharged to home under the care of her once all of the above goals are met, and she is medically stable. She will need a FWW for ambulation at home. Thank you very much for this referral. Jonnathan Saeed, [facility] WIth supervision of: Rosette Shafer PT, DPT, CLT [facility]
== END 2019-01-04 11:26 | disposition home or self-care (01) | DRG 470 ==
LOC: PDS 05:54 → MS 10:38
PROVIDERS: Admitting Provider Student in an Organized Health Care Education/Training Program; PCP Internal Medicine; Visit Provider Student in an Organized Health Care Education/Training Program
PROC: 0SRC0J9 Replacement of Right Knee Joint with Synthetic Substitute, Cemented, Open Approach (ICD-10-PCS; CPT 27447; principal; 2019-01-03 07:30)
PROC: 0SRC0J9 Replacement of Right Knee Joint with Synthetic Substitute, Cemented, Open Approach (ICD-10-PCS; CPT 27447; 2019-01-03 07:30)
DX: M17.11 Unilateral primary osteoarthritis, right knee (principal); M17.12 Unilateral primary osteoarthritis, left knee; M25.561 Pain in right knee; M25.562 Pain in left knee; F32.9 Major depressive disorder, single episode, unspecified; F17.210 Nicotine dependence, cigarettes, uncomplicated; Z23 Encounter for immunization; Z96.651 Presence of right artificial knee joint; G89.18 Other acute postprocedural pain
CPT/HCPCS: 27447; 20610; 76942; 97110; 97530; NC; J0690; J1040; J1885; J2250; J2405

== ENCOUNTER 2019-01-08 09:03 | Outpatient (CLI) | payer SELFPAY ==
--- NOTE | 2019-01-08 11:00 | DI.US_ITS ---
EXAM: US LOWER EXTREMITY VENOUS RT CLINICAL HISTORY: R calf swelling and pain s/p TKA, M79.604 PAIN RT LEG TECHNIQUE: Ultrasound performed using standard protocol. COMPARISON: No exams were available for comparison FINDINGS: Ultrasound of the right leg reveals no evidence of DVT. Thrombus is identified in a superficial vein in the posterior portion of the calf.
== END 2019-01-08 09:23 ==
PROVIDERS: PCP Internal Medicine; Visit Provider Student in an Organized Health Care Education/Training Program
DX: M79.661 Pain in right lower leg (principal); R22.41 Localized swelling, mass and lump, right lower limb; Z96.651 Presence of right artificial knee joint; I82.811 Embolism and thrombosis of superficial veins of right lower extremity
CPT/HCPCS: 93971

== ENCOUNTER 2019-01-18 09:31 | Outpatient (CLI) | payer SELFPAY ==
--- NOTE | 2019-01-18 09:15 | DI.RAD_ITS ---
EXAM: XR KNEE RT 1V INDICATION: 1ST POST OP RIGHT TKA. COMPARISON: XR knee RT 3V AP,lat,bernard from 11/23/2018 XR knee LT 3V AP,lat,bernard from 11/23/2018 XR STANDING ALIGNMENT from 01/18/2019 TECHNIQUE: 2D digital imaging was performed. A standing lateral view was performed. FINDINGS: There is a right total knee prosthesis. The components appear well aligned. There are no abnormal bella ny lucencies.
--- NOTE | 2019-01-18 09:15 | DI.RAD_ITS ---
EXAM: XR STANDING ALIGNMENT INDICATION: 1ST POST OP. COMPARISON: XR STANDING ALIGNMENT from 12/27/2018 TECHNIQUE: 2D digital imaging was performed. Standing AP views are performed from the upper abdomen through the ankles. FINDINGS: The hip joint spaces are not well penetrated. There are degenerative changes of the hips. The right femoral head projects slightly higher than the left. There is a right total knee prosthesis. There are severe degenerative changes of the left knee. The ankles show mild periarticular spurring but n o significant joint space narrowing.
== END 2019-01-18 09:51 ==
PROVIDERS: PCP Internal Medicine; Visit Provider Physician Assistant
DX: Z96.651 Presence of right artificial knee joint (principal); Z47.1 Aftercare following joint replacement surgery; M16.0 Bilateral primary osteoarthritis of hip; M17.12 Unilateral primary osteoarthritis, left knee
CPT/HCPCS: 73560; 77073

== ENCOUNTER 2019-06-07 08:25 | Outpatient (CLI) | payer SELFPAY ==
--- NOTE | 2019-06-07 08:15 | DI.RAD_ITS ---
EXAM: XR KNEE RT 3V AP,LAT,JIM CLINICAL HISTORY: R knee pain s/p TKA TECHNIQUE: COMPARISON: XR KNEE RT 1V from 01/18/2019 FINDINGS: Three views were obtained. There is a total knee joint replacement in position. The components appe ar well seated. No other significant bony abnormality seen. IMPRESSION:
== END 2019-06-07 08:45 ==
PROVIDERS: PCP Internal Medicine; Visit Provider Physician Assistant
DX: M25.561 Pain in right knee (principal); Z96.651 Presence of right artificial knee joint
CPT/HCPCS: 73562

== ENCOUNTER 2019-08-10 03:44 | Outpatient (CLI) | payer SELFPAY ==
[2019-08-10 12:07] LABS: HCT 44.6 % (36.0-46.0); HGB 15.1 g/dL (12.0-15.5); Mean Corp. HGB Concentration 33.9 g/dL (32.0-36.0); Mean Corpuscular Hemoglobin 31.4 pg (27.0-33.0); Mean Corpuscular Volume 92.7 fL (80-95); Mean Platelet Volume 9.8 fL (8.0-11.0); Platelet Count 243 x1000/uL (130-400); RBC 4.81 m/cumm (4.00-5.20); RBC Distribution Width 12.7 % (11.7-14.6)
[2019-08-10 13:27] LABS: BUN 16 mg/dL (7-18); Calcium 9.3 mg/dL (8.5-10.1); Chloride 102 mmol/L (98-107); Glucose 90 mg/dL (74-106); Sodium 137 mmol/L (136-145)
[2019-08-11 14:12] LABS: COVID-19 RT-PCR UVMMC Result Negative (Negative)
== END 2019-08-10 04:04 ==
PROVIDERS: PCP Internal Medicine; Visit Provider Student in an Organized Health Care Education/Training Program
DX: M25.562 Pain in left knee (principal); M17.12 Unilateral primary osteoarthritis, left knee; Z11.59 Encounter for screening for other viral diseases; Z01.818 Encounter for other preprocedural examination
CPT/HCPCS: 36415; 80048; 85027; U0003

== ENCOUNTER 2019-08-14 10:19 | Inpatient (IN) | payer SELFPAY ==
[2019-08-14] VITALS (10 sets, daily range): BP systolic 100–117; BP diastolic 57–76; PULSE 72–88; RESP 16–22; TEMP 36.1–37.7; O2SAT 92–95
[2019-08-14] MEDS: Celecoxib 200 MG CAP 400 MG PO (10:55)
[2019-08-14] MEDS: Lactated Ringers 1,000 ML 80 ML IV ×2 (10:55→15:11)
[2019-08-14] MEDS: Acetaminophen 500 MG TAB 1000 MG PO ×2 (10:55→19:34)
[2019-08-14] MEDS: Gabapentin 300 MG CAP PO ×2 (10:55→21:42)
[2019-08-14] MEDS: Bupivacaine 0.25% Pres-Free 30 ML VIAL ×2 (11:40→12:43)
[2019-08-14] MEDS: ceFAZolin 1 GM/50 ML BAG IVPB ×2 (12:07→18:18)
[2019-08-14] MEDS: ceFAZolin 3,000 MG in Normal Saline 100 ML 200 MG IVPB (12:07)
[2019-08-14] MEDS: Ketorolac 30 MG/ML VIAL (12:44)
[2019-08-14] MEDS: Normal Saline 20 ML VIAL (12:45)
--- NOTE | 2019-08-14 16:02 | PT.INIE ---
Date of service: 08/14/19 PT Notes Visit Reasons: (L) TKA Inpatient Physical Therapy Evaluation Date: 08/14/2019 Referring Doctor: Henry Vivar MD PT Orders: PT CONSULT: S/P ortho surgery. S/P L TKA and R Knee Arthroscopic Synovectomy Precautions: Fall. Standard. WBAT on B LE. Patient Profile/Admitting Diagnosis: Patient is a 53-year-old female with primary unilateral osteoarthritis of the left knee status post left total knee arthroplasty and with patellar clunk syndrome of right knee status post arthroscopic synovectomy on postoperative day 0. 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 Vivar Lipoma of back (Acute) Excision ~2009 Previous section (Chronic) x2 Status post arthroscopy of right knee (Acute) Status post surgery for recurrent dislocation of shoulder (Acute) Social History/Home Situation: Patient lives in a one-story home with her significant other Lele. She was independent with all aspects of ADLs without an assistive ambulatory device nor adaptive equipment prior to surgery. 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 Equipment Owned/DME: Front wheeled walker Subjective: Patient reports being numb on both her buttocks and mostly on her left LE, she states that the soles of her feet are numb. She is agreeable to initiating PT evaluation in bed. Denies chest pain, headache, and dizziness throughout session. Objective: General Observation: Patient seen resting in bed. CARMEN wraps to bilateral legs. Cryo/Cuff to both knees. Smith catheter in place. IV in the right UE. Mental Status: Alert and oriented x4 Pain: None reported. She did say that there is a pricking feeling lateral side of the kneecap on the right knee with straight leg raises. ROM: Right Upper Extremity: Shoulder Flexion WFL. Shoulder abduction WFL. Elbow flexion WFL. Wrist flexion WFL. Functional opening and closing of hand WFL. Left Upper Extremity: Shoulder Flexion WFL. Shoulder abduction WFL. Elbow flexion WFL. Wrist flexion WFL. Functional opening and closing of hand WFL. Right Lower Extremity: Hip flexion WFL. Hip abduction WFL. Knee flexion -18 to 60 degrees. Knee extension -18 degrees. Ankle dorsiflexion WFL. Ankle plantarflexion WFL. Left Lower Extremity: Hip flexion WFL. Hip abduction WFL. Knee flexion -15 to 80 degrees. Knee extension -15 degrees. Ankle dorsiflexion WFL. Ankle plantarflexion WFL. Strength: Right Upper Extremity: Shoulder flexors 5/5. Shoulder abductors 5/5. Elbow flexors 5/5. Elbow extensors 5/5. Vessel Scrapper Helper strong. Left Upper Extremity: Shoulder flexors 5/5. Shoulder abductors 5/5. Elbow flexors 5/5. Elbow extensors 5/5. Vessel Scrapper Helper strong. Right Lower Extremity: Hip flexors 4/5. Hip abductors 4/5. Knee flexors 3-/5. Knee extensors 3-/5. Ankle dorsiflexors 4-/5. Ankle plantarflexors 4-/5. Left Lower Extremity: Hip flexors 4/5. Hip abductors 4/5. Knee flexors 3-/5. Knee extensors 3-/5. Ankle dorsiflexors 4-/5. Ankle plantarflexors 4-/5. Bed Mobility/Transfers: Rolling standby assist Supine to sit standby assist with [facility] flat Sit to supine standby assist with [facility] flat Sit to stand minimal assist of 2 for safety as patient was complaining of being numb on her buttocks and on the left LE, requires use of front wheeled walker Stand to sit contact-guard assist with B UE support Bed to chair minimal assist requires use of front wheeled walker Chair to bed minimal assist requires use of front wheeled walker Gait: Patient tolerated short distance ambulation of 5 steps forward and 5 steps backward using front wheeled walker with weight bearing as tolerated on bilateral lower extremities requiring contact-guard assist of PT and of SCHEDULE PLANNING MANAGER Xorshia on each side for safety. Reciprocal step to gait pattern. No LOB. Patient reports that she does not feel she has full control on the left LE. Balance: Static Sitting: Normal Dynamic Sitting: Normal Static Standing: Good Dynamic Standing: Fair Special Tests: Mobility Limitations Standardized Measure [facility] AM-PAC 6 clicks Basic Mobility Inpatient Short Form: Raw Score: 20 CMS Score: 30 % Informed Consent/Education: Patient instructed in purpose of PT consult and plan of care. Assessment: Patient demonstrates need for an assistive device for all mobility ADL performance, difficulty with walking, unsteadiness on feet, and generalized weakness resulting from postoperative status. Patient is a 53-year-old female with primary unilateral osteoarthritis of the left knee status post left total knee arthroplasty and with patellar clunk syndrome of right knee status post arthroscopic synovectomy on postoperative day 0. Patient presents with clinical signs and symptoms consistent with current/admitting diagnoses that have resulted to mobility limitations, gait instability, generalized weakness, and impairment of motor control as demonstrated by the following impairment level findings: 1. Decreased strength to B LE major muscle groups 2. Impaired standing balance 3. Impaired activity tolerance 4. Limitation of joint range of motion in B knee flexion/extension. Impairments are contributing to the following functional limitations: 1. Increased dependence with transfers 2. Inability to safely ambulate without assistive device and physical assistance 3. Increase completion time for mobility ADL performance 4. Increased fall risk 5. Inability to negotiate steps alone safely Patient is assessed as a [id number] moderate complexity based on the following: History: 53-year-old female with impairment level findings, functional limitations, and past medical history as stated above Examination: Demonstrable impairment in strength, balance, and range of motion with underlying impairments and functional limitations as documented above Presentation: Evolving Decision Makin moderate complexity Goals: Goals X1 week 1. Sit-Stand independent 2. Stand-Sit independent 3. Bed-Chair independent 4. Chair-Bed independent 5. Independent gait on level surface with use of least restrictive device for at least 300 feet without report of pain nor dyspnea 6. Independent stair negotiation while holding onto bilateral rails for at least 10 steps without report of pain nor dyspnea 7. Independent with home exercise program 8. Good static and dynamic standing balance/tolerance Plan of Care/Treatment Plan: 1-2x/day, 7 days/week x 1 week. Plan of care has been reviewed with the PIGS FEET FINISHER providing the service under Physical Therapy direction. Initiate Physical Therapy intervention for strengthening, bed mobility, transfers, gait, stairs, balance training, use of assistive device. DISCHARGE RECOMMENDATIONS: Home when medically cleared. No equipment needs at this time. May benefit from skilled physical therapy services according to orthopedic surgeon's timeline recommendations. Patient will be educated and trained on home exercise program per TKA exercise protocol in preparation for outpatient physical therapy services. TREATMENT CODE/TIME: 16986 x 30 minutes, [id number] x 23 minutes beginning at 4:02 PM. Thank you very much for this referral. With the supervision of: Rosette Shafer PT, DPT, CLT [facility]
--- NOTE | 2019-08-14 17:26 | W.PM.OP ---
Date of service: 08/14/19 Time of Service: 14:26 Operative Note Operative Note DATE OF PROCEDURE: 08/14/19 PRE-OP DIAGNOSIS: Left Knee Osteoarthritis, Right Knee Patellar Clunk POST-OP DIAGNOSIS: same PROCEDURE: Left Total Knee Replacement, Right Knee Arthroscopic Synovectomy SURGEON: Henry Vivar FIRST OFFICER AND FLIGHT INSTRUCTOR: Mirna Monet ANESTHESIA: regional and spinal ESTIMATED BLOOD LOSS: 300 PATHOLOGY: none sent TOURNIQUET TIME: 8 COMPLICATIONS: None Patient was transported to: PACU Patient's condition: stable Implants: 1. Depuy Attune Cruciate Retaining Femoral Component, Size 6 2. Depuy Attune Rotating Platform Tibial Component, Size 4 3. Depuy Attune 6x8mm CR,RP Poly 4. Depuy Attune Patellar Component, Size 35mm Indications: I have seen Yoselin in clinic for symptoms of knee arthritis, confirmed with radiographic findings. Yoselin has exhausted nonoperative methods and was having significant limitations in daily function and desired better function and less pain. She had a knee replacement on the right side which did very well for pain relief although she has been having symptoms of patellar clunk. I discussed the technical details of a knee replacement. I explained the risks of the procedure to include, but not limited to, bleeding, infection, pain, stiffness, fracture, damage to nerves and vessels, damage to muscles and tendons, loosening, need for repeat procedure, blood clot and cardiopulmonary demise. I also offered arthroscopic synovectomy of the right knee to help with the crepitus and the symptoms of patellar clunk. I reviewed the risks of that procedure including continued symptoms, infection, pain, stiffness, clot. Despite these risks, Yoselin elected to proceed. Findings: There was significant signs of arthritis throughout the knee, mostly involving the medial side. The right knee had significant scarring and synovitis seen around the anterior knee and surrounding the patella and interposing between the patella and the trochlea of the femoral component. Procedure Description: Yoselin was greeted in the preoperative holding area where the correct side was identified and marked. The consent was reviewed with the patient and signed. The history and physical was updated. All questions were answered. Preoperative mediacations were administered: Acetaminophen 1000mg, Celebrex 400mg, and Gabapentin 300mg. An adductor canal block was then administered by the anesthesia team in the PACU. Yoselin was taken back to the operating room. A spinal anesthestic was then administered. The patient was placed into the supine position on the operating room table. A nonsterile tourniquet was placed high onto the left leg but only used for cementing. Posts were placed for positioning during the procedure. All bony prominences were well padded. Prophylactic antibiotics in the form of Cefazolin were administered. 1g of Tranxemic Acid was given intravenously within 30 minutes of incision. Both legs was then prepped with Chloraprep and draped in a standard fashion with impervious stockinette and extremity drape. After the initial prep of the right knee, the right knee was covered and left until the left had been completed. A second prep with Chloraprep was performed on the left side prior to placing Ioband. A timeout to confirm correct identity, side and site, procedure, allergies, anesthesia, and medical concerns was performed. With the left knee in some flexion, a midline incision was made overlying the knee. Full thickness skin flaps were raised once the extensor mechanism was encountered. These were raised medially and laterally. Any bleeding was controlled with electrocautery. Once the extensor mechanism was fully exposed, a medial parapatellar arthrotomy was performed in a flexed position. All bleeding from the arthrotomy and the geniculate arteries was coagulated. A medial subperiosteal peel was performed with electrocautery to the midcoronal plane. The fat pad was removed while keeping the patellar tendon protected. The anterior distal femur synovium was removed for later visualization. The ACL and PCL were resected and the anterior horn of the lateral meniscus was transected. The knee was then flexed with the patella everted. Large osteophytes from the tibia were removed. Large osteophytes from the femur were removed. Using a step drill, and based on preoperative templating, the femoral canal was entered. This was done with a step drill without any difficulty. The intramedullary distal femoral cut guide was inserted, set to a 5 degree valgus cut and 9mm cut thickness. The distal femoral cut guide was then held in position and pinned. With the soft tissues protected, the distal cut was performed. This was passed over a few times to ensure a planar cut. I then turned attention to the tibia. The extramedullary guide was placed onto the leg. The distal aspect was slid medial to adjust for position of center of ankle and stay in line with shaft of the tibia. Approximately 3-5 degrees of posterior slope was kept in the proximal cutting guide. The center of the guide was aligned with the PCL. The stylus was used to assess cut thickness. The medial side, most involved side, was set for a 3mm cut. This was then held in position and pinned into place with 2 additional pins and a cross pin for stability. The medial and lateral collateral ligaments were protected and the cut was performed. With this completed, it was assessed and noted to be of appropriate dimensions. The guide was removed. A spacer block was inserted and the knee was brought into extension. The 7mm spacer block provided full extension, without hyperextension and with stability of both the medial and lateral collateral ligaments was assessed. The pins from the femur and the tibia were then removed. The distal femur was then sized. The anterior stylus was placed onto the lateral ridge of the anterior femur. This indicated a size 6 femur. The external rotation of the guide was adjusted to 3 degrees to match the epicondylar axis, perpendicular to [place]?s line. The 4-in-1 cutting guide was the placed. The posterior medial femur cut was evaluated and appeared of good thickness. The spacer block was inserted underneath the cutting guide and stability was confirmed in 90 degrees of flexion. An sd wing was used to confirm appropriate position of the anterior cut to avoid notching. This cutting guide was ensured to be flush on the cut surface and then pinned into place with headed pins. While protecting the soft tissues, quad tendon, and collateral ligaments, the anterior and posterior cuts were performed with a saw. The central two pins were removed and the posterior and anterior chamfers were cut next. The notch-cutting guide was placed. This was pinned to lateralize the femoral component as much as possible while keeping it flush on the cut surface. This was then pinned into position. A reciprocating saw was used to make the small notch cut. A trial CR femoral component was then inserted, impacted down to the cut surfaces, and the lug holes were drilled. A provisional trial tibial component was placed and the knee was brought through range of motion. There was noted to be excellent extension and flexion. There was no significant instability. The patella was tracking without thumbs. The tibial cut surface was fully exposed. The medial and lateral menisci were removed. The tibia was then sized as a 4. The tibia had been previously marked during trialing to correspond to the center of the tibial component to help with rotation. The trial was aligned to this vicki, approximately rotated to the medial 1/3rd of the tibial tubercle. The trial was pinned into place. The tibia was prepared with a reamer and a keel punch. The knee was then brought into extension and the patella was measured as 25 mm. Using the patellar clamp and cut guide, this was resected to a flat surface with at least 13mm of thickness remaining. The size 35 patella fit the best. This was oriented and then clamped into position. The lugs were drilled. The trial components were removed. The final components, except for the polyethylene were opened on the back table. The periosteal and capsular tissues, especially posteriorly, around the knee were then systematically injected with a periarticular cocktail consisting of 50cc 0.25% Marcaine, 30mg Ketorolac, 20cc of Exparal and 50cc of injectable saline. The tourniquet was then inflated to 275mmHg. The knee was thoroughly irrigated with a pulse lavage and dried. On the back table, with the implants opened, the cement was mixed. 2 batches of antibiotic laden cement were prepared with vacuum assistance. After the cement was ready it was placed on to the back side of the tibial component. A small amount was placed onto the posterior flange of the femur. Cement was manual pressurized and impregnated into the cut surface of the tibia. The tibial component was then inserted into the cut surface and impacted into position. Excess cement was removed and the component was reimpacted. Again, excess cement was removed and our attention was then turned to the femur. The femoral cut surface was once again dried and cement was manually impacted into the cut surface. The femoral component was lined with the lug holes and impacted. Excess cement was removed. It was ensured to be down against the cut surface. The trial polyethylene was then inserted and the leg was brought out into full extension for the duration of the cement curing process, approximately 15min. Cement was lastly manually impacted into the cut surface of the patella and the patellar button was clamped into position and held. During this process attention was turned to the gutters of the knee and for all interfaces for any excess cement. While the cement was hardening, the knee was irrigated with Irrisept chlorhexadine solution. It was allowed to sit in the knee for 3 minutes. After the cement had finally cured, approximately 15min, the clamp was removed from the patella and the knee was taken through range of motion. A size 8mm polyethylene component provided the best range of motion and stability with less than 2mm gapping with medial and lateral stress and full extension without significant hyperextension. The patella was tracking with a no-thumbs technique. The trial poly was removed and once again the knee was checked for any loose, excess, or errant cement. The poly component was then inserted into position after cleaning and drying the tibial tray. The capsule was then reapproximated with a No. 1 Vicryl at multiple locations. The capsule was finally closed with a No. 2 Stratafix, barbed suture. The second dosing of 1g TXA was started. Deep tissues were then reapproximated with 0 Vicryl and 2-0 Vicryl. The skin was closed with a running 3-0 Monocryl in a subcuticular fashion. This was reinforced with skin glue. While the skin was reclosed on the left knee I then proceeded with the right knee arthroscopy. The right leg was uncovered from previous prepping and draping. The knee was then prepped again with ChloraPrep. Standard arthroscopy portals were marked on the skin. The knee was insufflated with 50 cc of normal saline. I then made a standard lateral arthroscopic portal into the knee using previous scars from arthroscopic surgery. Once inside the knee I had excellent visualization. There is some synovitis seen within the suprapatellar pouch but no loose bodies. There is dense tissue seen around the patella, mostly laterally. This was interposed between the patella and the femoral component and was dense over the lateral aspect of the patella. I therefore established a superior lateral portal. This was done with spinal needle localization. A shaver was inserted and the scar tissue and synovitis around the patella was debrided. An electrocautery wand was also inserted to completely denude the patella of any synovitis or scarring from around its periphery. I then reestablished the medial lateral gutters using both shaver and letter cautery wand. A medial portal was established complete the work in the medial gutter. There was some notable synovitis and interposed tissue seen. This was resected with the shaver and with electrocautery wand. There is no other sign of complication or loosening. The knee was then irrigated and the arthroscopic instruments were removed. The fluid was evacuated. The skin was closed with buried 3-0 Monocryl sutures. The portal sites were then injected with a mixture of the periarticular cocktail reserved from the left side. The knee was then dressed with Xeroform, 4 x 4's, Kerlix, and Hernan wrap. A Mepilex silver dressing was applied to the left leg along with a [id number] HERNAN wrap. A CryoCuff was applied. Yoselin was transferred to the hospital bed without difficulty an suffering no apparent complication. Yoselin has a good prognosis. Physical therapy will start today and without restrictions, weight-bearing as tolerated. Aspirin 81mg BID will be used for DVT prophylaxis.
[2019-08-14] MEDS: Aspirin E.C. 81 MG TABEC PO (19:33)
[2019-08-14] MEDS: Ketorolac 15 MG/ML VIAL IV (19:34)
[2019-08-14] MEDS: Normal Saline Flush 10 ML SYR IV (19:35)
[2019-08-15] MEDS: Lactated Ringers 1,000 ML 80 ML IV (01:42)
[2019-08-15] MEDS: ceFAZolin 1 GM/50 ML BAG IVPB ×2 (01:48→09:39)
[2019-08-15] MEDS: Ketorolac 15 MG/ML VIAL IV ×2 (01:48→08:00)
[2019-08-15] MEDS: Normal Saline Flush 10 ML SYR IV ×2 (01:49→08:01)
[2019-08-15] MEDS: oxyCODONE 5 MG TAB PO ×3 (03:01→11:42)
[2019-08-15 04:03] VITALS: BP 142/82; PULSE 73; RESP 19; TEMP 37.1; O2SAT 96
--- NOTE | 2019-08-15 06:30 | DSE_ITS ---
Date of service: 08/15/19 Time of Service: 09:28 DS: Diagnosis Discharge Diagnosis (1) Primary osteoarthritis of left knee: Status: Chronic (2) Patellar clunk syndrome of right knee: Status: Acute Discharge Plan Disposition Patient Disposition: HOME Condition: Good Discharge Details Reason For Visit: (L) TKA Admit Date/Time: 08/14/19 10:19 Admit Provider: Henry Vivar Attending Provider: Henry Vivar Primary Care Provider: Jemal Schmidt [place] [facility] Course Hospital Course: Patient was admitted to the medical/surgical floor following the procedure. The surgery was tolerated well without any notable medical, surgical, or anesthetic complications. Mobilization began postoperatively. The vasquez catheter was removed and voiding spontaneously. Vitals were stable. Physical therapy worked with the patient and was cleared for discharge home. No acute medical issues. Pain was controlled on oral regimen. Home Meds and New Rx's Prescriptions: New aspirin 81 mg tablet,delayed release (DR/EC) 81 mg PO BID Qty: 60 RF: 0 acetaminophen 500 mg tablet 1,000 mg PO Q8H PRN (Reason: pain) Qty: 90 RF: 3 pantoprazole 40 mg tablet,delayed release (DR/EC) 40 mg PO DAILY Qty: 30 RF: 0 oxycodone 5 mg tablet 5 mg PO Q4H Qty: 18 RF: 0 Continued gabapentin 300 mg capsule 300 mg PO QHS Qty: 30 RF: 0 cyanocobalamin (vitamin B-12) [Vitamin B-12] 2,000 MCG tablet extended release 3,000 mcg PO DAILY RF: 0 trazodone 100 mg Tablet 150 mg PO QHS PRNRF: 0 cholecalciferol (vitamin D3) [Vitamin D3] 25 mcg (1,000 unit) Capsule 25 mcg PO DAILY RF: 0 ibuprofen 600 mg tablet 600 mg PO TID PRNQty: 90 RF: 3 Discontinued naproxen 500 mg tablet 500 mg PO BID PRN (Reason: pain) Qty: 60 RF: 0 acetaminophen 500 mg tablet 1,000 mg PO Q8H PRN (Reason: pain) Qty: 90 RF: 3 Discharge Instructions Additional Instructions: Dr. Vivar?s Total Knee Discharge Instructions Activity: The most important activity is to walk. You should try to take short walks a few times a day. It is important that when resting you work on keeping the knee straight. Avoid putting a pillow behind the knee as this will encour age flexion. Work on range of motion exercises as provided by Physical Therapy and the preoperative booklet. - Start outpatient physical therapy within 2 weeks. - You should wear the RUSSELL hose on both legs for 2 weeks. Dressing: Keep the surgical dressing (Mepilex) in place for at least one week. If you went home on the surgical day, you should remove the CARMEN wrap on the second day and then apply the RUSSELL hose. The dressing may get wet after 3 days but avoid soaking the dressing. If it gets wet, just lightly pat dry. Most patient prefer to cover with ClingWrap or Saran Wrap to keep the dressing dry. After the first week, the dressing may be removed and replaced with light gauze and tape or nothing. For the right knee. You may remove the CARMEN wrap and gauze at 3 days and then cover the wounds with just a band-aid. Medications: - You should take Tylenol and anti-inflammatory Ibuprofen as your primary pain control medications - You have been prescribed a stronger pain medication Oxycodone for breakthrough pain, take as needed as prescribed. - You have also been prescribed a stomach acid reduction agent Pantoprozole to help reduce stomach acid and reflux. - You will be taking Aspirin 81mg twice a day for DVT prevention unless instructed otherwise. - If you have constipation you should take Colace or Miralax (both over -the-counter). It takes most people 3-4 days to have a bowel movement. Follow-up: 2 weeks. You should also call physical therapy to work on scheduling outpatient therapy sessions which can begin at 2 weeks. If you have any acute concerns or questions, please do not hesitate to contact the office at [phone]. You may contact Dr. Vivar with any questions after hours through the hospital at [phone] or on his cell phone at [phone]. Referrals: Henry Vivar MD [ [facility] STAFF PHYSICIAN] - [facility] [Provider Group] - 08/29/19 (In [place]. s/p L TKA and R knee arthroscopic synovectomy.) Activity:: Activity as Tolerated Equipment/Supplies:: Walker Diet:: As Tolerated Discharge Orders Discharge Orders: Discharge Order (Routine); Ordered 08/15/19 Ordered By: Henry Vivar DS: Summary Status at Discharge Functional status at discharge: uses cane/walker Overall status at discharge: patient is progressing back to baseline Mental Status: mental status grossly normal Speech and Movement: speech and movement normal Mood: congruent mood Affect: normal affect Exam Psych Mental Status: mental status grossly normal Speech and Movement: speech and movement normal Mood: congruent mood Affect: normal affect DS: Data Vitals/I&O Vitals and I&O: Vital Signs Temperature 37.1 C 08/15/19 04:03 Temperature Source Tympanic 08/15/19 04:03 Pulse 73 08/15/19 04:03 Pulse Rhythm Regular 08/15/19 02:50 Respiratory Rate 19 08/15/19 04:03 Respiratory Effort 08/15/19 02:50 Respiratory Depth Normal 08/15/19 02:50 Respiratory Pattern Normal 08/15/19 02:50 Blood Pressure 142/82 H 08/15/19 04:03 Pulse Oximetry 96 08/15/19 04:03 Oxygen Delivery Method Room Air 08/15/19 04:03 Oxygen Flow Rate 0 08/15/19 04:03 Pain Level 2 08/15/19 04:01 Intake & Output 08/14/19 08/14/19 08/15/19 11:59 23:59 11:59 Intake Total 1270 / 1270 1371.333 / 1371.333 Output Total 450 / 450 675 / 675 Balance 820 / 820 696.333 / 696.333 Weight 131.7 kg 131.7 kg Intake: IV 1270 / 1270 891.333 / 891.333 Oral 480 / 480 Output: Urine 150 / 150 675 / 675 Estimated Blood Loss 300 / 300 Other: Urine Color Yellow Light Maria Victoria Urine Appearance Clear Clear Urine Odor Strong Emesis Description None Voiding Methods [facility] Medical History Depression (Chronic) Heart murmur (Acute) 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 Vivar Lipoma of back (Acute) Excision ~2009 Previous section (Chronic) x2 Status post arthroscopy of right knee (Acute) Status post surgery for recurrent dislocation of shoulder (Acute) Social History Smoking/Tobacco Use Status: Current every day Alcohol Intake: current Alcohol Intake frequency: holidays/special occasions only Drug use: Never Details: tincture rub part THC, and CBD for knee pain Current gender identity: female Do you feel safe at home: Yes Do you feel safe in your relationship?: Yes
[2019-08-15] MEDS: Cholecalciferol (Vitamin D3) 1,000 UNIT TAB 1000 UNITS PO (07:59)
[2019-08-15] MEDS: Aspirin E.C. 81 MG TABEC PO (07:59)
[2019-08-15] MEDS: Pantoprazole 40 MG TABCR PO (07:59)
[2019-08-15] MEDS: Acetaminophen 500 MG TAB 1000 MG PO (08:00)
[2019-08-15 08:05] VITALS: BP 141/79; PULSE 78; RESP 17; TEMP 36.9; O2SAT 100
--- NOTE | 2019-08-15 10:07 | PT.INTREAT ---
Date of service: 08/15/19 Time of Service: 08:20 PT Notes Visit Reasons: (L) TKA Inpatient Physical Therapy Treatment Note [facility] Date: 08/15/2019 PRECAUTIONS: WBAT B SUBJECTIVE: Yoselin reports that she is feeling good this morning, and that she would like to discharge to home at some point today. OBJECTIVE: PAIN: Patient complained of discomfort in posterior L knee at rest, following gait training she complains of increased L knee discomfort BED MOBILITY/TRANSFERS Supine-sit: I with HOB flat Sit-supine: I with HOB flat Sit-stand: S Stand-sit: S GAIT Assistive Device: FWW Weight bearing: WBAT B Assist: S Distance: 150' THEREX: Patient completed a lower extremity strengthening and stabilization program, in a supine position, as per flow sheet. She was able to perform active SLR x10, bilaterally. She ends with cryocuff to B knees. ASSESSMENT: Patient tolerated session well, with complaints of increased L knee discomfort following gait training. She was able to tolerate a progression in gait distance with FWW support and supervision. She demonstrates independence with supine<>sit transfers. PLAN: As per primary PT TREATMENT CODE/TIME: 50 minutes; 33067 ?2, [id number]
[2019-08-15 11:25] VITALS: BP 136/74; PULSE 80; RESP 18; TEMP 36.4; O2SAT 97
--- NOTE | 2019-08-15 14:03 | INDS_ITS ---
Date of service: 08/15/19 PT Notes Visit Reasons: (L) TKA Inpatient Physical Therapy Discharge Summary Dates: 08/15/2019 Dates of Service: 08/14/2019 and 08/15/2019 This is a clinical summary of care provided on the duration of dates listed above. No charge was made in the completion of this documentation. Referring Doctor: Henry Vivar MD PT Orders: PT CONSULT: S/P ortho surgery. S/P L TKA and R Knee Arthroscopic Synovectomy Precautions: Fall. Standard. WBAT on B LE. Patient Profile/Admitting Diagnosis: Patient is a 53-year-old female with primary unilateral osteoarthritis of the left knee status post left total knee arthroplasty and with patellar clunk syndrome of right knee status post arthroscopic synovectomy on postoperative day 0. 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 Vivar Lipoma of back (Acute) Excision ~2009 Previous section (Chronic) x2 Status post arthroscopy of right knee (Acute) Status post surgery for recurrent dislocation of shoulder (Acute) Social History/Home Situation: Patient lives in a one-story home with her si gnificant other Lele. She was independent with all aspects of ADLs without an assistive ambulatory device nor adaptive equipment prior to surgery. 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 Equipment Owned/DME: Front wheeled walker Subjective: NT. See most recent INTERNATIONAL STUDENT COUNSELOR notes. Objective: General Observation: NT. See most recent INTERNATIONAL STUDENT COUNSELOR notes. Mental Status: NT. See most recent INTERNATIONAL STUDENT COUNSELOR notes. Pain: NT. See most recent INTERNATIONAL STUDENT COUNSELOR notes. ROM: Right Upper Extremity: Shoulder Flexion WFL. Shoulder abduction WFL. Elbow flexion WFL. Wrist flexion WFL. Functional opening and closing of hand WFL. Left Upper Extremity: Shoulder Flexion WFL. Shoulder abduction WFL. Elbow flexion WFL. Wrist flexion WFL. Functional opening and closing of hand WFL. Right Lower Extremity: Hip flexion WFL. Hip abduction WFL. Knee flexion -18 to 60 degrees. Knee extension -18 degrees. Ankle dorsiflexion WFL. Ankle plantarflexion WFL. Left Lower Extremity: Hip flexion WFL. Hip abduction WFL. Knee flexion -15 to 80 degrees. Knee extension -15 degrees. Ankle dorsiflexion WFL. Ankle plantarflexion WFL. Strength: Right Upper Extremity: Shoulder flexors 5/5. Shoulder abductors 5/5. Elbow flexors 5/5. Elbow extensors 5/5. Envelope Stamping Machine Operator strong. Left Upper Extremity: Shoulder flexors 5/5. Shoulder abductors 5/5. Elbow flexors 5/5. Elbow extensors 5/5. Envelope Stamping Machine Operator strong. Right Lower Extremity: Hip flexors 4/5. Hip abductors 4/5. Knee flexors 3-/5. Knee extensors 3-/5. Ankle dorsiflexors 4-/5. Ankle plantarflexors 4-/5. Left Lower Extremity: Hip flexors 4/5. Hip abductors 4/5. Knee flexors 3-/5. Knee extensors 3-/5. Ankle dorsiflexors 4-/5. Ankle plantarflexors 4-/5. Bed Mobility/Transfers: Rolling modified independent Supine to sit modified independent Sit to supine modified independent Sit to stand supervision for safety as patient was complaining of being numb on her buttocks and on the left LE, requires use of front wheeled walker Stand to sit supervision with B UE support Bed to chair supervision requires use of front wheeled walker Chair to bed supervision requires use of front wheeled walker Gait: Patient tolerated short distance ambulation of 150 feet front wheeled walker with weight bearing as tolerated on bilateral lower extremities requiring supervision assist. Reciprocal step to gait pattern. No LOB. Balance: Static Sitting: Normal Dynamic Sitting: Normal Static Standing: Good Dynamic Standing: Fair Assessment: Patient demonstrates need for an assistive device for all mobility ADL performance, difficulty with walking, unsteadiness on feet, and generalized weakness resulting from postoperative status. Patient is a 53-year-old female with primary unilateral osteoarthritis of the left knee status post left total knee arthroplasty and with patellar clunk syndrome of right knee status post arthroscopic synovectomy on postoperative day 0. Patient continues to present with clinical signs and symptoms consistent with current/admitting diagnoses that have resulted to mobility limitations, gait instability, generalized weakness, and impairment of motor control as demonstrated by the following impairment level findings: 1. Decreased strength to B knee major muscle groups 2. Impaired standing balance 3. Impaired activity tolerance 4. Limitation of joint range of motion in B knee flexion/extension Impairments continue to contribute to the following functional limitations: 1. Increased dependence with transfers 2. Inability to safely ambulate without assistive device and physical as sistance 3. Increase completion time for mobility ADL performance 4. Increased fall risk Goals: Goals X1 week 1. Sit-Stand independent NOT MET 2. Stand-Sit independent NOT MET 3. Bed-Chair independent NOT MET 4. Chair-Bed independent NOT MET 5. Independent gait on level surface with use of least restrictive device for at least 300 feet without report of pain nor dyspnea NOT MET 6. Independent with home exercise program NOT MET 7. Good static and dynamic standing balance/tolerance NOT MET DISCHARGE RECOMMENDATIONS: Home when medically cleared. No equipment needs at this time. May benefit from skilled physical therapy services according to orthopedic surgeon's timeline recommendations. Patient will be educated and trained on home exercise program per TKA exercise protocol in preparation for outpatient physical therapy services. TREATMENT CODE/TIME: OK. Thank you very much for this referral. With the supervision of: Rosette Shafer PT, DPT, CLT [facility]
== END 2019-08-15 12:13 | disposition home or self-care (01) | DRG 470 ==
LOC: PDS 10:19 → MS 15:02
PROVIDERS: Admitting Provider Student in an Organized Health Care Education/Training Program; PCP Internal Medicine; Visit Provider Student in an Organized Health Care Education/Training Program
PROC: 0SRD0J9 Replacement of Left Knee Joint with Synthetic Substitute, Cemented, Open Approach (ICD-10-PCS; CPT 27447; principal; 2019-08-14 13:15)
PROC: 0SRD0J9 Replacement of Left Knee Joint with Synthetic Substitute, Cemented, Open Approach (ICD-10-PCS; CPT 29870; 2019-08-14 13:15)
DX: M17.12 Unilateral primary osteoarthritis, left knee (principal); T84.092A Other mechanical complication of internal right knee prosthesis, initial encounter; Z96.652 Presence of left artificial knee joint; M25.861 Other specified joint disorders, right knee; M25.562 Pain in left knee; M23.8X9 Other internal derangements of unspecified knee; M65.9 Synovitis and tenosynovitis, unspecified; F17.210 Nicotine dependence, cigarettes, uncomplicated; F32.9 Major depressive disorder, single episode, unspecified
CPT/HCPCS: 27447; 29876; 76942; 97110; 97162; 97530; NC; J0690; J1100; J1885; J2370; J2405

== ENCOUNTER 2019-08-27 15:14 | Outpatient (CLI) | payer SELFPAY ==
--- NOTE | 2019-08-27 15:00 | DI.RAD_ITS ---
EXAM: XR STANDING ALIGNMENT and XR knee left one-view CLINICAL HISTORY: 1ST POST OP. TECHNIQUE: 2D digital imaging was performed. COMPARISON: CR XR STANDING ALIGNMENT from 01/18/2019 CR XR KNEE RT 3V AP,LAT,JIM from 06/07/2019 CR XR KNEE LT 1V from 08/27/2019 FINDINGS: There are bilateral total knee replacements. The right knee replacement appears stable compared to t he examination from 06/07/2019. Since the prior examination from 01/18/2019, the patient has undergon e a left total knee replacement. The left total knee appears in good position. No suspicious lucenc ies are seen in or about the orthopedic hardware. Bones are intact. There are mild degenerative changes seen about the hips bilaterally. Mild degenerative changes are a lso noted about the ankles. IMPRESSION: Status post left TKR. DATA REPOSITORY: RADIATION DOSE DELIVERED:
== END 2019-08-27 15:34 ==
PROVIDERS: PCP Internal Medicine; Referring Provider Internal Medicine; Visit Provider Student in an Organized Health Care Education/Training Program
DX: Z96.653 Presence of artificial knee joint, bilateral (principal); Z47.1 Aftercare following joint replacement surgery; M16.0 Bilateral primary osteoarthritis of hip
CPT/HCPCS: 73560; 77073

== ENCOUNTER 2019-10-19 02:36 | Outpatient (CLI) | payer SELFPAY ==
--- NOTE | 2019-10-19 09:47 | DI.MAMMO_ITS ---
EXAM: MAMMO SCREENING CLINICAL HISTORY: SCREENING, Z12.39 TECHNIQUE: Mammograms were interpreted according to the usual protocol including computer analysis w [employer] CAD system, tomosynthesis and C-view imaging. COMPARISON: 2010 from [facility] FINDINGS: The breasts are composed of scattered fibroglandular densities, Breast Density category B. Left breast: There is an irregular mass in the central posterior breast tissue slightly medial to the nipple. Spiculations are apparent on the tomographic images. There are no associated calcification s. No skin thickening or abnormal axillary lymph nodes are seen. Spot compression views and ultraso und are requested for further evaluation. Right breast: No suspicious masses or suspicious microcalcifications are seen. No skin thickening or abnormal axillary lymph nodes are seen. There has been no significant change from prior exams. IMPRESSION: Left breast: BI-RADS Cat 0 - Assessment Incomplete: Need additional imaging evaluation Right breast: Negative. Breast Density Category B, scattered fibroglandular densities.
== END 2019-10-19 02:56 ==
PROVIDERS: PCP Internal Medicine; Visit Provider Nurse Practitioner Family
DX: Z12.31 Encounter for screening mammogram for malignant neoplasm of breast (principal); R92.2 Inconclusive mammogram
CPT/HCPCS: 77063; 77067

== ENCOUNTER 2019-10-23 00:31 | Outpatient (CLI) | payer MEDICAID, SELFPAY ==
--- NOTE | 2019-10-23 | DI.MAMMO_ITS ---
EXAM: MG MAMMO SCREEN CALL BACK UNI CLINICAL HISTORY: F/U MAMMO, IRREGULAR MASS CENTRAL POST BREAST TECHNIQUE: Mammograms were interpreted according to the usual protocol including computer analysis w [employer] CAD system, tomosynthesis and C-view imaging. COMPARISON: FINDINGS: Additional mammographic views of the left breast and left breast ultrasound are interpreted in conjun ction. These examinations were obtained to evaluate an area of asymmetric density/mass the left katarina st seen on recent mammogram. Spot compression views show a irregular probably spiculated masslike ra diodensity measuring up to about 10 millimeters in diameter, this lies centrally in the breast about 10 cm behind the nipple on the MLO view and just medial to the mid axis of the breast on the CC view about 12 cm behind the nipple. Comparison with prior mammogram of June 2010 shows question of radio density at this site but I cannot confirm that the mass was present previously. Ultrasound shows no definite mass or cyst in this area. Accordingly, I would recommend a biopsy be o btained utilizing stereotactic technique. IMPRESSION: Suspicious left breast mass on mammography as described above, not visualized by ultrasound. Biopsy recommended BI-RADS Category 4 - Suspicious Abnormality: Biopsy should be considered Breast Density - Category C - Heterogeneously dense
== END 2019-10-23 00:51 ==
PROVIDERS: PCP Internal Medicine; Visit Provider Nurse Practitioner Family
DX: Z12.39 Encounter for other screening for malignant neoplasm of breast (principal); N63.20 Unspecified lump in the left breast, unspecified quadrant; R92.2 Inconclusive mammogram
CPT/HCPCS: 76642; 77063; 77067

== ENCOUNTER 2020-08-25 11:36 | Outpatient (CLI) | payer MEDICAID, SELFPAY ==
--- NOTE | 2020-08-25 09:00 | DI.RAD_ITS ---
Exam(s) XR KNEE RT 2V AP,LAT EXAM: XR KNEE RT 2V AP,LAT CLINICAL HISTORY: ANNUAL F/U R TKA. TECHNIQUE: 2D digital imaging was performed. COMPARISON: CR XR KNEE RT 3V AP,LAT,JIM from 06/07/2019 FINDINGS: There are stable postsurgical changes of a right total knee replacement. No evidence of hardware tori lure is seen. The bones are intact. There is an enthesophyte at the superior patella. Soft tissues are unremarkable. IMPRESSION: Right TKR. DATA REPOSITORY: RADIATION DOSE DELIVERED:
--- NOTE | 2020-08-25 09:00 | DI.RAD_ITS ---
Exam(s) XR KNEE LT 2V AP,LAT EXAM: XR KNEE LT 2V AP,LAT CLINICAL HISTORY: annual f/u L TKA. TECHNIQUE: 2D digital imaging was performed. COMPARISON: CR XR KNEE LT 1V from 08/27/2019 CR XR KNEE RT 2V AP,LAT from 08/25/2020 FINDINGS: There are stable postsurgical changes of a left total knee replacement. No evidence of hardware fail ure is seen. The bones are intact and normally mineralized. No joint effusion is seen. The soft ti ssues are unremarkable. IMPRESSION: Stable left TKA. DATA REPOSITORY: RADIATION DOSE DELIVERED:
== END 2020-08-25 11:37 | disposition home or self-care (01) ==
LOC: DIORS 11:36
PROVIDERS: PCP Internal Medicine; Referring Provider Internal Medicine; Visit Provider Student in an Organized Health Care Education/Training Program
DX: Z96.653 Presence of artificial knee joint, bilateral (principal); Z47.1 Aftercare following joint replacement surgery
CPT/HCPCS: 73560

== ENCOUNTER 2020-11-19 11:53 | Outpatient (REF) | payer MEDICAID, SELFPAY ==
[2020-11-21 09:31] LABS: COVID-19 RT-PCR UVMMC Result Negative (Negative)
== END 2020-11-19 11:54 | disposition home or self-care (01) ==
LOC: NCHCN 11:53
PROVIDERS: PCP Internal Medicine; Visit Provider Physician Assistant
DX: Z20.822 Contact with and (suspected) exposure to COVID-19 (principal); R05 Cough
CPT/HCPCS: U0003

== ENCOUNTER 2020-11-21 04:31 | Outpatient (CLI) | payer MEDICAID, SELFPAY ==
--- NOTE | 2020-11-21 | DI.RAD_ITS ---
Exam(s) XR CHEST 2V PA LATERAL EXAM: XR CHEST 2V PA LATERAL CLINICAL HISTORY: COUGH,? PNEUMONIA, R05 TECHNIQUE: 2D digital imaging was performed. COMPARISON: No exams were available for comparison FINDINGS: The heart is not enlarged. The lungs are clear and well expanded. No pleural effusion seen. Mediastin al contours appear intact. IMPRESSION: Normal chest. RADIATION DOSE DELIVERED: Total DLP
== END 2020-11-21 04:51 ==
PROVIDERS: PCP Internal Medicine; Visit Provider Physician Assistant
DX: R05 Cough (principal)
CPT/HCPCS: 71046

== ENCOUNTER 2021-09-07 08:56 | Outpatient (CLI) | payer MEDICAID, SELFPAY ==
--- NOTE | 2021-09-07 08:30 | DI.RAD_ITS ---
Exam(s) XR KNEE LT 2V AP,LAT EXAM: XR KNEE LT 2V AP,LAT CLINICAL HISTORY: ANNUAL F/U L TKA. TECHNIQUE: 2D digital imaging was performed. Two images were obtained. AP and lateral views were ob tained. COMPARISON: CR XR KNEE LT 2V AP,LAT from 08/25/2020 FINDINGS: BONES: There are stable post operative changes present. No fracture or dislocation. JOINTS: The orthopedic hardware is in good position. SOFT TISSUE: Normal. IMPRESSION: Stable postoperative changes. DATA REPOSITORY: RADIATION DOSE DELIVERED:
== END 2021-09-07 08:57 | disposition home or self-care (01) ==
LOC: DIORS 08:56
PROVIDERS: PCP Internal Medicine; Referring Provider Internal Medicine; Visit Provider Student in an Organized Health Care Education/Training Program
DX: Z96.652 Presence of left artificial knee joint (principal); Z47.1 Aftercare following joint replacement surgery
CPT/HCPCS: 73560

== ENCOUNTER 2021-09-14 03:19 | Outpatient (CLI) | payer MEDICAID, SELFPAY ==
[2021-09-14 12:00] LABS: Source Nasal/Nares
[2021-09-14 17:50] LABS: COVID-19 PCR Negative (Negative)
== END 2021-09-14 03:20 | disposition home or self-care (01) ==
PROVIDERS: PCP Internal Medicine; Visit Provider Surgery
DX: Z20.822 Contact with and (suspected) exposure to COVID-19 (principal); Z01.818 Encounter for other preprocedural examination
CPT/HCPCS: 87635

== ENCOUNTER 2021-09-15 13:26 | Day surgery (SDC) | payer MEDICAID, SELFPAY ==
--- NOTE | 2021-09-14 15:49 | HPE_ITS ---
Assessment and Plan Assessment and plan (1) Change in bowel habits: Status: Acute Assessment and plan: Plan:Colonscopy w/ MAC The pt understands that they need to do a bowel prep and the importance of hydration during this.? The patient understands there is a theoretical risk of renal failure.? For healthy patients we use Gatorade/Miralax Prep.? ?For anyone with renal concerns- GoLytely will be used. Plavix and coumadin will need to be held except in unusual circumstances. ? Patients in A. Fib do not need to be bridged with Lovenox or on CVA prophylaxis.? A baby ASA can be continued but full dose ASA needs to be stopped for 10 days prior to the procedure. A complete H & P is required within 30 days of the procedure.? MAC is used for the colonoscopy.? Colonoscopy does not require antibiotics prophylaxis. Thank you for allowing me to participate in the care of this Patient.? A copy of the Endoscopy report will be forwarded to your office. Informed consent is obtained for the procedural (explained in simple layman's terms that?the pt and/or family could understand) explaining risks vs benefits and alternatives to the procedure and consequences if we do not do the procedure and need/rational for the procedure. Risks include but are not limited to: bleeding, infection, perforation of c olon.? This would necessitate emergency surgery to repair the damage w/ possible ostomy; and other associated complications w/ the required surgery. ? Also complications of anesthesia including aspiration, SC/CVA/. I discussed with the?patient would they could expect during the procedure, post procedure and recovery time and risks.? The patient understands that they need to have a ride home after the procedure.? The patient was given all this information in writing and expressed understanding. to your office.? If there are any questions or concerns please feel free to contact our office.? (2) Smoker: Status: Chronic (3) Breast cancer, left breast: (4) Morbid obesity: (5) Hyperlipidemia: History of Present Illness Narrative: Office Consult 08/10 Pt had a bout of constipation in June when she was away on vacation, she went 3-4 days without moving her bowels, reports she was not eating well like she normal does, I felt like I was going to pass out, I tried suppositories then changed my diet back to eating salads and fruit. And finally was able to go. Pt noted she was having? N/V.? She also [place] nausea and gasy and felt gas moving around.? Thinks are back to nl know.? No bleeding.? She was able to eat.? Pain was vague adn diffuse.? No LLQ pain.? When her bowels started move- they were yeallow and slimy, but formed.? she hadn't started any new meds or been on abx.? She was driving back from [place].? No one else in her republican was ill. No wt loss.? sister had CRC polyps Pt seen at the request of PCP regarding colonoscopy, see above.? Pt has never had a colon cancer screening before.? .? There is no family history of any colon cancer.? Pt has not had any weight loss.? Their appetite is good.? No heart, lung, or kidney problems. No heartburn or indigestion. No prior colo-rectal surgery.? No prior ROXANNE.? No problems with anesthesia in the past. ? ?Patient has a history of: DM:? No CVA/SC:? no CPAP use:? +tobbacco.? no CPAP Blood thinners:? no Kidney disease:?no ? ?Patient needs to be MAC because of:? Medical conditions/airway control ?Pain control? Meds/NKDA/PMHx/PSHx: see [email or web address]?ROS: 4 point ROS neg other than the symptoms noted above in the The patient is here today for colonoscopy. She did complete a bowel prep. She is not currently having any abdominal pain or nausea. The resultant effluent is a brownish. She denies any bleeding. She denies any chest pain/chest pressure or shortness of breath. She denies any productive cough or fevers. She is had no changes in her medications or health status status since I saw her in the office on 08/10. 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 Vivar Hx of partial mastectomy left Lipoma of back Excision ~2009 Previous section x2 Status post arthroscopy of right knee Status post surgery for recurrent dislocation of shoulder Status post total knee replacement, left (08/14/19) Social History Smoking/Tobacco Use Status: Current every day Tobacco Type: cigarettes Smoking risk assessment performed?: Yes Alcohol Intake: current Alcohol Intake frequency: holidays/special occasions only Drug use: Never Substance use type: former substance user Current gender identity: female Do you feel safe at home: Yes Do you feel safe in your relationship?: Yes Meds Allergies and Home Medications Allergies Allergy/AdvReac Type Severity Reaction Status Date / Time azithromycin [From Zithromax] Allergy Severe Rash Verified 09/15/21 13:57 clindamycin Allergy Severe Rash Verified 09/15/21 13:57 pineapple Allergy Severe Other (See Verified 09/15/21 13:57 Comment) doxycycline AdvReac Severe Rash Verified 09/15/21 13:57 sulfamethoxazole AdvReac Severe RASH Verified 09/15/21 13:57 [From Bactrim] trimethoprim [From Bactrim] AdvReac Severe RASH Verified 09/15/21 13:57 Sulfa (Sulfonamide AdvReac Intermediate Skin Rash Verified 09/15/21 13:57 Antibiotics) Home Medications Medication Instructions Recorded Confirmed Type cyanocobalamin (vitamin B-12) 3,000 mcg PO DAILY 12/25/13 09/14/21 History 2,000 mcg tablet,extended release (Vitamin B-12 ER) cholecalciferol (vitamin D3) 25 25 mcg PO DAILY 08/08/19 09/14/21 History mcg (1,000 unit) capsule (Vitamin D3) acetaminophen 500 mg tablet 1,000 mg PO Q8H PRN pain #90 tabs 08/15/19 09/14/21 Rx trazodone 150 mg tablet 150 mg PO QHS PRN 08/25/20 09/14/21 History ibuprofen 800 mg tablet 800 mg PO Q8H 08/10/21 09/14/21 History loratadine 10 mg tablet (Claritin) 10 mg PO DAILY 08/10/21 09/14/21 History Exam Narrative Exam Narrative: PHYSICAL EXAM GENERAL APPEARANCE: Alert, healthy appearance, oriented, in no acute distress SKIN: No rashes.? No breakdown HYDRATION: Well hydrated HEAD, EYES, EARS, NECK, THROAT: Head is normocephalic, pupils equal, round, reactive to light and accommodation, ocular movement intact, sclera clear and no jaundice. ?Dentition intact. No sore throat.? No jaw pain. No thrush NECK: Supple, Trachea midline. No JVD. LUNGS: normal respiration/nl chest excursion. ?Clear to auscultation B/l no R/R/W ?HEART: Regular rate and rhythm, EXTREMITY: No edema or cyanosis? no leg pain, redness, swelling.? No IV infiltration ABDOMEN: non tender to palpation, no masses or distention, no hernias. Normal bowel sounds NEURO: no focal neuro deficits.
--- NOTE | 2021-09-14 15:52 | W.COLOREPORT ---
Colonoscopy Report Pre-op diagnosis general: Change in bowel habits/history of IBS Post-op diagnosis procedure note: other (I hemorhoids/Polyps/diverticula) Surgeon: Cathy Dietz Anesthesia Type: General LMA/ETT Estimated blood loss (mL): 3 Pathology: other Complications: None Disposition: same day Prep: Miralax/Dulcolax Retraction Time: 45mins Procedure Description: After informed consent was obtained the patient was taken to the procedure room and placed in a left decubitous position. Monitors were applied and a time out was done. The patients name, date of , procedure, allergies to medications and metal in their body was reviewed. The patient was then sedated. Once sedated and comfortable a rectal exam was done. External exam was normal. Internal exam revealed a normal sphincter tone. She has a firm nodule at the dentate line. The scope was then introduced and retrofelexed. Grade II internal hemorrhoids were identified. She has what areas to be an insissated gland in the anal area as well. The scope was then advanced to the cecum w/out difficulty. The TI and appendiceal orifice were identified. The prep was BBPS I in all segments for a total of 3. The colon was irrigated w/ 2 L of saline. Lesions <5mm could easily have been missed. The scope was then slowly retracted over 20 minutes back into the rectum. she has diverticula- small, that do extend from the sigmoid to transverse colon. She had mult polyps that were removed. they were all removed w/ a cold Bx forepts. polyps are 5mm flat and located at: 90/70cm. 40cm x3. 30cm. 20cm x2. Rectal polyps x2. The scope was removed and the patient was woken up and taken back to Same day surgery in stable condition. The patient tolerated the procedure well and there were no immediate complications. Follow up: The patient should follow up in 5 years unless they develop changes in bowel habits or other new gastrointestinal complaints.
--- NOTE | 2021-09-14 15:53 | PDOC.DSDIS_ITS ---
Discharge Plan Disposition Patient Disposition: HOME Condition: Good Discharge Details Reason For Visit: Colon scope Attending Provider: Cathy Dietz Primary Care Provider: Jemal Schmidt Home Meds and New Rx's Prescriptions: No Action trazodone 150 mg tablet 150 mg PO QHS PRN loratadine [Claritin] 10 mg tablet 10 mg PO DAILY ibuprofen 800 mg tablet 800 mg PO Q8H cyanocobalamin (vitamin B-12) [Vitamin B-12] 2,000 MCG tablet extended release 3,000 mcg PO DAILY cholecalciferol (vitamin D3) [Vitamin D3] 25 mcg (1,000 unit) Capsule 25 mcg PO DAILY acetaminophen 500 mg tablet 1,000 mg PO Q8H PRN (Reason: pain) Qty: 90 3RF Label Comments: 09/15/21 500mg tylenol Discharge Instructions Instructions: Colorectal Polyps (DC), Diverticulosis Diet (GEN), Diverticulosis (DC) Additional Instructions: DSU Colonoscopy Post- Op Instructions Instructions for Everyone who is given Anesthesia: For your safety, please do the following for the next twenty-four (24) hours: *Do Not operate a motor vehicle (car, truck, motorcycle, etc.) *Do Not drink alcoholic beverages or use any recreational drugs for the first 24 hours or while taking pain medications. The medications in your body may have a reaction that can be dangerous. *Do Not make any important decisions or sign any important papers. Findings: diverticvula colon polyps inspissated cyst of rectum Follow up: repeat in 5 yrs 1. No lifting over 20 pounds or strenuous activity for the first 24 hours after your procedure. After 24 hours there are no restrictions on your activity but you may feel fatigued for a few days. 2. After you arrive home you may have a light meal and return to your normal diet as you can tolerate it without feeling sick to your stomach. 3. You may have a bloated, gaseous feeling in your belly (abdomen) after a colonoscopy. Passing gas and belching will help. Walking or lying down on your left side with your knees flexed may relieve the discomfort. Call the office at [phone] (Office) or [phone] (Hospital) right away if you notice any of the following: a.Vomiting of blood or ?coffee ground stools?. b.Rectal bleeding 1Tbsp, blood clots or continuous bleeding. c.Severe belly (abdominal) pain. d.A hard distended belly (abdomen) and an inability to pass gas. 4. Please don?t expect to have a normal BM (bowel movement) for 2-3 days after your procedure. 5. If there are questions regarding the findings of your procedure, please contact your doctor 6. If you are unable to contact your doctor with a problem, contact the hospital at [phone]. 7. Continue all your regular medications unless directed otherwise. I understand the above instructions and have no questions. Signature of Patient or Adult Escort Name of Responsible Adult Escort Signature of Nurse Date/Time Activity:: see above Diet:: see above Discharge Orders Discharge Orders: Discharge Order (Routine); Ordered 09/14/21 Ordered By: Cathy Dietz DS: Diagnosis Discharge Diagnosis (1) Change in bowel habits: Status: Acute (2) Smoker: Status: Chronic (3) Breast cancer, left breast: (4) Morbid obesity: (5) Hyperlipidemia: (6) Diverticula of colon: Status: Acute (7) Adenomatous colon polyp: Status: Acute (8) Rectal cyst: Status: Acute
[2021-09-15 13:50] VITALS: BP 153/99; PULSE 81; RESP 16; TEMP 36.4; O2SAT 97
--- NOTE | 2021-09-15 13:55 | ANES.PREOP_ITS ---
General Info Date of Service Date Performed: 09/15/21 Height: 5 ft 7 in Weight: 131.4 kg Body Mass Index (BMI): 45.3 Surgical Procedure: Operation Date: 09/15/21 12:35 Proposed Procedure Side Surgeon dontrell Dietz, DO Meds Allergies and Home Medications Allergies Allergy/AdvReac Type Severity Reaction Status Date / Time azithromycin [From Zithromax] Allergy Severe Rash Verified 09/15/21 13:57 clindamycin Allergy Severe Rash Verified 09/15/21 13:57 pineapple Allergy Severe Other (See Verified 09/15/21 13:57 Comment) doxycycline AdvReac Severe Rash Verified 09/15/21 13:57 sulfamethoxazole AdvReac Severe RASH Verified 09/15/21 13:57 [From Bactrim] trimethoprim [From Bactrim] AdvReac Severe RASH Verified 09/15/21 13:57 Sulfa (Sulfonamide AdvReac Intermediate Skin Rash Verified 09/15/21 13:57 Antibiotics) Home Medication Medication Instructions Recorded cyanocobalamin (vitamin B-12) 3,000 mcg PO DAILY 12/25/13 2,000 mcg tablet,extended release (Vitamin B-12 ER) cholecalciferol (vitamin D3) 25 25 mcg PO DAILY 08/08/19 mcg (1,000 unit) capsule (Vitamin D3) acetaminophen 500 mg tablet 1,000 mg PO Q8H PRN pain #90 tabs 08/15/19 trazodone 150 mg tablet 150 mg PO QHS PRN 08/25/20 ibuprofen 800 mg tablet 800 mg PO Q8H 08/10/21 loratadine 10 mg tablet (Claritin) 10 mg PO DAILY 08/10/21 Current Visit Medications: Current Medications Generic Name Dose Route Start Last Admin Trade Name Freq PRN Reason Stop Dose Admin Hyoscyamine Sulfate 0.125 mg 09/14/21 12:35 Hyoscyamine 0.125 Mg Sl/Oral/Chew SL DIRECTED PRN Hyoscyamine Sulfate 0.125 mg 09/14/21 15:47 Hyoscyamine 0.125 Mg Sl/Oral/Chew SL DIRECTED PRN Ringer's Solution 1,000 mls @ 80 mls/hr 09/15/21 06:00 IV 10/14/21 23:59 INFUSION HAYLEE IV Miscellaneous Supplies 1 each 09/15/21 06:00 Iv Access IV 10/14/21 23:59 DIRECTED HAYLEE Ondansetron HCl 4 mg 09/14/21 12:35 Ondansetron 4 Mg/2 Ml Vial IVP Q4H PRN PRN Nausea / Vomiting Ondansetron HCl 4 mg 09/14/21 15:47 Ondansetron 4 Mg/2 Ml Vial IVP Q4H PRN PRN Nausea / Vomiting Sodium Chloride 0 ml 09/15/21 06:00 Normal Saline Flush 10 Ml Syr IV 10/14/21 23:59 PRN PRN Sodium Chloride 0 ml 09/15/21 06:00 Normal Saline 10 Ml Vial IJ 10/14/21 23:59 DIRECTED PRN Sterile Water 0 ml 09/15/21 06:00 Water,Injection,Sterile 10 Ml Vial IJ 10/14/21 23:59 DIRECTED PRN PFSH Active Problems Active Problems: Problem Status Onset Code History of total left knee replacement 08/14/19 Z96.652 Change in bowel habits R19.4 Depression F32.9 Smoker F17.200 Medical History Medical History Breast cancer, left breast Estrogen receptor positive status (ER+) Heart murmur Reports dx when 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 Vivar Lipoma of back Excision ~2009 Previous section x2 Status post arthroscopy of right knee Status post surgery for recurrent dislocation of shoulder Status post total knee replacement, left (08/14/19) Tobacco Smoking/Tobacco Use Status: Current every day Tobacco Type: cigarettes Alcohol Alcohol Intake: current Alcohol intake frequency: holidays/special occasions only Substance Use Substance use: Never Substance use type: former substance user Vital Signs and Lab Results Vital Signs Most Recent Vital Signs in EMR: Most Recent Vital Signs Temp Pulse Resp BP Pulse Ox 36.4 C L 81 16 153/99 H 97 09/15/21 13:50 09/15/21 13:50 09/15/21 13:50 09/15/21 13:50 09/15/21 13:50 Lab Results Blood Type / Crossmatch: No Data to Display Complete Blood Count: No Data to Display Complete Metabolic Panel: No Data to Display Liver Function Panel: No Data to Display Coagulation Panel: No Data to Display Cardiac Panel: No Data to Display Arterial Blood Gas: No Data to Display Venous Blood Gas: No Data to Display Pancreas Panel: No Data to Display Thyroid Panel: No Data to Display Infectious Disease: Coronavirus (COVID-19)(PCR) Negative (Negative) 09/14/21 10:55 Coronavirus 2019 Source Nasal/Nares 09/14/21 10:55 Blood Cultures: No Data to Display Toxicology Panel: No Data to Display Anesthesia Assessment and Plan Anesthesia History Personal History: No History of Anesthesia Complications Family History: No Family History of Anesthesia Complications Exercise Tolerance Exercise Tolerance: Metabolic Equivalents>4 Pertinent Negatives Pertinent Negatives: No Symptoms of GERD, No Major Cardiovascular Symptoms or Complaints, No Major Pulmonary Symptoms or Complaints and No History of CVA/TIA Cardiac & Pulmonary Exam Cardiac Exam: Normal S1/S2 Heart Sounds Pulmonary Exam: Clear Bilateral Breath Sounds Implantable Cardiac Device Does patient have a Pacemaker or an ICD?: No Airway Exam Known Difficult Airway: No Mallampati Class: 1 Mouth Opening: Normal (> 3cm) Thyromental Distance: Greater than 3 cm Neck Range of Motion: Full ROM Neck Circumference: Thick Teeth Condition: Normal Dentition Airway Comments: Top front teeth ASA Classification ASA Score: ASA 2 Emergency Case?: No NPO Status NPO Status: NPO Clears >2 hours, Solids >8 hours Anesthesia Plan Resuscitation Status: Full Code Anesthesia Technique: General Anesthesia Airway Planned: Natural Airway Monitors Used: Standard Monitors
[2021-09-15] MEDS: Lactated Ringers 1,000 ML 80 ML IV (14:00)
[2021-09-15 14:04] VITALS: BMI 45.3
--- NOTE | 2021-09-15 14:25 | BOWEL_PTH ---
PATIENT: Yoselin Samayoa LOC: [facility] U#:[id number] AGE/SX: 55/F ROOM: RE09/15/[address]: Cathy Dietz : 1965 BED: DIS: 09/15/2021 SPEC #: [id number] RECD: 09/16/21 12:29 STATUS: KWASI REPayal #: [id number] YE: 09/15/21 14:[address]: Cathy Dietz DEPT: Surgical Specimen RECD BY: Allyson Gaming ENTERED: 09/16/21 12:32 SP TYPE: Bowel OTHR DR: Jemal Schmidt Tissues: 1 - BIOPSY BOWEL 2 - BIOPSY BOWEL 3 - BIOPSY BOWEL 4 - BIOPSY BOWEL 5 - BIOPSY BOWEL 6 - BIOPSY BOWEL Procedures: GROSS AND MICRO LEVEL 4 Comments: [id number]
[2021-09-15 15:12] VITALS: BP 146/80; PULSE 80; RESP 16; TEMP 36.6; O2SAT 97
[2021-09-15] MEDS: Hyoscyamine 0.125 MG SL/ORAL/CHEW SL (15:18)
--- NOTE | 2021-09-15 15:37 | W.ANESPOSTOP ---
Postoperative Evaluation Date, Time and Location Date Performed: 09/15/21 Time Performed: 15:37 Patient Location: Day Surgery Unit Vital Signs Most Recent Imported Vital Signs: Most Recent Vital Signs Temp Pulse Resp BP Pulse Ox 36.6 C 80 16 146/80 H 97 09/15/21 15:12 09/15/21 15:12 09/15/21 15:12 09/15/21 15:12 09/15/21 15:12 Pain Score Most Recent Pain Score: Most Recent Pain Score Pain Level 5 09/15/21 15:12 Assessment Mental Status: Awake (Alert & Oriented to Patient Baseline) Airway and Respiratory Function: Patent airway with normal (patient baseline) respiratory exam Cardiovascular Function: Hemodynamically Stable Hydration Status: Adequately Hydrated Nausea & Vomiting: No Nausea or Vomiting Pain: Pain is tolerable per patient Peripheral Nerve Block: Patient did not receive a nerve block
[2021-09-15 15:40] VITALS: BP 149/88; PULSE 74; RESP 16; TEMP 37.1; O2SAT 95
== END 2021-09-15 16:20 | disposition home or self-care (01) ==
PROVIDERS: PCP Internal Medicine; Visit Provider Surgery
PROC: 0DJD8ZZ Inspection of Lower Intestinal Tract, Via Natural or Artificial Opening Endoscopic (ICD-10-PCS; CPT 45378; principal; 2021-09-15 12:30)
DX: K62.1 Rectal polyp (principal); K64.1 Second degree hemorrhoids; K58.9 Irritable bowel syndrome, unspecified; K57.30 Diverticulosis of large intestine without perforation or abscess without bleeding; F17.210 Nicotine dependence, cigarettes, uncomplicated; D12.2 Benign neoplasm of ascending colon; E66.01 Morbid (severe) obesity due to excess calories; Z68.42 Body mass index [BMI] 45.0-49.9, adult; E78.5 Hyperlipidemia, unspecified; K63.89 Other specified diseases of intestine
CPT/HCPCS: 45380; 88305; J2704; J3490

== ENCOUNTER 2021-09-22 11:10 | Observation (INO) | payer MEDICAID, SELFPAY ==
[2021-09-22] VITALS (23 sets, daily range): BP systolic 117–169; BP diastolic 70–81; PULSE 60–96; RESP 13–28; TEMP 36.6–37.2; O2SAT 89–100
--- NOTE | 2021-09-22 11:40 | ED.GENADUL_ITS ---
Discharge Plan Disposition Patient Disposition: [facility] INPATIENT Condition: Stable Discharge Details Chief Complaint: Abd Prob Clinical Impression: Acute diverticulitis, Leukocytosis Primary Care Provider: Jemal Schmidt ED Provider: Shantelle Hastings Home Meds and New Rx's Prescriptions: No Action trazodone 150 mg tablet 150 mg PO QHS PRN loratadine [Claritin] 10 mg tablet 10 mg PO DAILY PRN ibuprofen 800 mg tablet 800 mg PO Q8H PRN cyanocobalamin (vitamin B-12) [Vitamin B-12] 2,000 MCG tablet extended release 3,000 mcg PO DAILY cholecalciferol (vitamin D3) [Vitamin D3] 25 mcg (1,000 unit) Capsule 25 mcg PO DAILY acetaminophen 500 mg tablet 1,000 mg PO Q8H PRN (Reason: pain) Qty: 90 3RF Label Comments: 09/15/21 500mg tylenol Medical Decision Making 1330 -- 55-year-old female with a history of morbid obesity, hypertension, breast cancer, section and tubal ligation who is 1 week status post colonoscopy for chronic abdominal pain for the past 2 months presents with worsening abdominal pain and vomiting since eating chicken, corn on the cob and strawberry shortcake last night. Blood pressure hypertensive. Remainder vitals within normal limits. Patient appears uncomfortable but nontoxic. Her abdomen is soft and diffusely tender. Differential diagnosis includes acute appendicitis, cholecystitis, biliary co lic, UTI, pyelonephritis, small bowel obstruction, gastroenteritis, colitis. Patient presentation does not appear consistent with ACS, PE or dissection. Via will place an IV, bolus IV fluids, screening labs, urinalysis, CT abdomen and pelvis with oral contrast only and give a dose of IV Dilaudid and IV Zofran and reassess. This patient was evaluated during a time of global shortage of iodinated contrast media. Based on guidance from the [employer], best practices, and local institutional approaches, an alternative path for evaluating and managing the patient may have been employed in order to provide optimal care during this shortage. The current situation has been discussed with the patient. 1500 --labs and imaging reviewed. White blood cell count elevated to 14. Normal electrolytes. Lipase normal. Urinalysis notes 3-5 WBCs and RBCs but rare bacteria, negative leukocyte esterase and negative nitrite. CT notes: IMPRESSION: 1. The main finding here is in the pelvis where there is streaking and fluid around the sigmoid which is involved with diverticular disease.? Most probably consistent with diverticulitis. 2. CBD diameter is slightly prominent.? There is no obvious radiopaque calculus in the lower CBD and no pancreatic head mass evident on this noninfused study.? Correlation with appropriate blood work recommended. 3. 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 Patient reassessed and she feels much better. Case discussed with Dr. Dietz and Dr. Juarez who recommend that patient should be admitted for IV antibiotics secondary to leukocytosis. No evidence of microperforation on CT. Patient is on trazodone which has an interaction with Cipro with risk of QT prolongation. EKG obtained which notes a QT of 363. General surgery has ordered IV Zosyn so we will order a dose of this now. Patient is agreeable with plan for admission. Medical Records Medical records reviewed: Yes I reviewed the patient's medical records. Medical records narrative: 09/15/21 Colonoscopy Report Pre-op diagnosis general: Change in bowel habits/history of IBS Post-op diagnosis procedure note: other (I hemorhoids/Polyps/diverticula) Surgeon: Cathy Dietz Anesthesia Type: General LMA/ETT Estimated blood loss (mL): 3 Pathology: other Complications: None Disposition: same day Prep: Miralax/Dulcolax Retraction Time: 45mins Procedure Description: After informed consent was obtained the patient was taken to the procedure room and placed in a left decubitous position.? Monitors were applied and a time out was done. The patients name, date of , procedure, allergies to medications and metal in their body was reviewed.? The patient was then sedated. Once sedated and comfortable a rectal exam was done. External exam was normal.? Internal exam revealed a normal sphincter tone.? She has a firm nodule at the dentate line. The scope was then introduced and retrofelexed.? Grade II internal hemorrhoids were identified. She has what areas to be an insissated gland in the anal area as well. The scope was then? advanced to the cecum w/out difficulty.? The TI and appendiceal orifice were identified.? The prep was BBPS I in all segments for a total of 3.? The colon was irrigated w/ 2 L of saline.? Lesions <5mm could easily have been missed.? The scope was then slowly retracted over 20? minutes back into the rectum.? she has diverticula- small, that do extend from the sigmoid to transverse colon.? She had mult polyps that were removed.? they were all removed w/ a cold Bx forepts.? polyps are 5mm flat and located at:? 90/70cm. ? 40cm x3.? 30cm.? 20cm x2.? Rectal polyps x2.? The scope was removed and the patient was woken up and taken back to Same day surgery in stable condition. The patient tolerated the procedure well and there were no immediate complications. Follow up: The patient should follow up in 5 years unless they develop changes in bowel habits or other new gastrointestinal complaints. Imaging Data Radiologic Study: Radiologist's impression: CT ABDOMEN ? PELVIS WO CLINICAL HISTORY: ? diffuse abd pain, vomiting. ? TECHNIQUE:? Imaging Protocol: Axial computed tomography images with coronal and sagittal reformatted images were created and reviewed CONTRAST MATERIAL:? Intravenous: none Oral: Yes COMPARISON:? CR XR CHEST 2V PA ? LATERAL from 11/21/2020 FINDINGS: VISUALIZED LUNG BASES: No nodules nor pleural effusions evident.? ABDOMEN: There is no ascites. LIVER: There are no obvious focal hepatic lesions evident of this noninfused study.? GALLBLADDER/BILIARY: No obvious gallbladder pathology.? CBD diameter is prominent, measuring 1.4 cm.? However, there is no new Trish calculus in lower CBD nor obvious pancreatic head mass. PANCREAS: No evidence of pancreatic mass nor dilatation of the pancreatic duct.? SPLEEN: Spleen is not enlarged.? No obvious intrasplenic lesions.? ADRENALS: There are no significant adrenal masses. KIDNEYS:No cysts evident. No solid renal masses. No calculi nor hydronephrosis. . ABDOMINAL AORTA: Abdominal aorta is not enlarged. LYMPH NODES: There is no retroperitoneal nor paraaortic adenopathy. ABDOMINAL WALL: No evidence of significant anterior abdominal wall nor inguinal hernia. GI: There is a benign appearing mural lipoma in the distal aspect of the duodenum measuring approximately 2.4 by 0.8 cm diameter of small bowel loops is upper normal. PELVIS:? LYMPH NODES: There is no intrapelvic nor inguinal adenopathy. GI: No evidence of appendicitis.There is sigmoid diverticulosis.? There is surrounding streaking and some fluid consistent with probable diverticulitis. URINARY BLADDER: No masses nor calculi.? No distension.? No gas within the bladder lumen. REPRODUCTIVE: Uterus normal size.? No ovarian masses. OSSEOUS: No significant osseous lesions. Degenerative anterolisthesis L4 upon L5 due to facet arthropathy. IMPRESSION: 1. The main finding here is in the pelvis where there is streaking and fluid around the sigmoid which is involved with diverticular disease.? Most probably consistent with diverticulitis. 2. CBD diameter is slightly prominent.? There is no obvious radiopaque calculus in the lower CBD and no pancreatic head mass evident on this noninfused study.? Correlation with appropriate blood work recommended. 3. 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 Labs: Laboratory Tests Range/Units 09/22/21 09/22/21 09/22/21 12:00 12:00 12:30 WBC Cancelled 14.49 H RBC Cancelled 5.09 Hgb Cancelled 14.3 Hct Cancelled 44.6 MCV Cancelled 88 MCH Cancelled 28.1 MCHC Cancelled 32.1 RDW Cancelled 14.0 Plt Count Cancelled 278 MPV Cancelled 9.4 Immature Gran % Cancelled 0.4 Neutrophils % Cancelled 85.9 Band Neutrophils % Cancelled Lymphocytes % Cancelled 7.7 Atypical Lymphs % Cancelled Monocytes % Cancelled 5.1 Eosinophils % Cancelled 0.6 Basophils % Cancelled 0.3 Metamyelocytes % Cancelled Myelocytes % Cancelled Promyelocytes % Cancelled Other Cells % Cancelled Nucleated RBC % Cancelled 0.0 Absolute Neutrophils Cancelled 12.45 H Absolute Lymphocytes Cancelled 1.12 L Absolute Monocytes Cancelled 0.74 Absolute Eosinophils Cancelled 0.09 Absolute Basophils Cancelled 0.04 RBC Morphology Cancelled Polychromasia Cancelled Hypochromasia Cancelled Poikilocytosis Cancelled Basophilic Stippling Cancelled Anisocytosis Cancelled Microcytosis Cancelled Macrocytosis Cancelled Spherocytes Cancelled Tear Drop Cells Cancelled Ovalocytes Cancelled Stomatocytes Cancelled [place] Bodies Cancelled [place] Cells/Echinocytes Cancelled Acanthocytes (Spur) Cancelled Schistocytes Cancelled Sodium (136-145) mmol/L 134 L Potassium (3.5-5.1) mmol/L 4.3 Chloride (98-107) mmol/L 99 Carbon Dioxide (21.0-32.0) mmol/L 25.5 Anion Gap (3-11) mmol/L 9.5 BUN (7-18) mg/dL 15 Creatinine (0.55-1.02) mg/dL 0.8 Estimated GFR/1.73 m2 (mL/min/1.73m2) >= 60.00 Glucose (74-106) mg/dL 151 H Calcium (8.5-10.1) mg/dL 9.5 Total Bilirubin (0.2-1.0) mg/dL 0.4 AST (15-37) U/L 24 ALT (14-59) U/L 26 Alkaline Phosphatase (46-116) U/L 111 Total Protein (6.4-8.2) g/dL 8.2 Albumin (3.4-5.0) g/dL 3.4 Lipase (73-393) U/L 41 Urine Color (Yellow) Urine Clarity (Clear) Urine pH (5-8) Ur Specific Mellen (1.005-1.025) Urine Protein (Negative) mg/dL Urine Ketones (Negative) mg/dL Urine Blood (Negative) Urine Nitrite (Negative) Urine Bilirubin (Negative) Urine Urobilinogen (Up TO 0.2) EU/dL Ur Leukocyte Esterase (Negative) Urine RBC (0-2) HPF Urine WBC (0-5) HPF Ur Epithelial Cells (Negative) HPF Urine Crystals (Negative) HPF Urine Bacteria (Negative) HPF Urine Casts (Negative) LPF Urine Mucus (Negative) Ur Culture Indicated? Urine Glucose (Negative) mg/dL COVID-19 Source SARS-CoV-2 (PCR) Range/Units 09/22/21 09/22/21 09/22/21 14:10 16:31 16:38 WBC RBC Hgb Hct MCV MCH MCHC RDW Plt Count MPV Immature Gran % Neutrophils % Band Neutrophils % Lymphocytes % Atypical Lymphs % Monocytes % Eosinophils % Basophils % Metamyelocytes % Myelocytes % Promyelocytes % Other Cells % Nucleated RBC % Absolute Neutrophils Absolute Lymphocytes Absolute Monocytes Absolute Eosinophils Absolute Basophils RBC Morphology Polychromasia Hypochromasia Poikilocytosis Basophilic Stippling Anisocytosis Microcytosis Macrocytosis Spherocytes Tear Drop Cells Ovalocytes Stomatocytes [place] Bodies [place] Cells/Echinocytes Acanthocytes (Spur) Schistocytes Sodium (136-145) mmol/L Potassium (3.5-5.1) mmol/L Chloride (98-107) mmol/L Carbon Dioxide (21.0-32.0) mmol/L Anion Gap (3-11) mmol/L BUN (7-18) mg/dL Creatinine (0.55-1.02) mg/dL Estimated GFR/1.73 m2 (mL/min/1.73m2) Glucose (74-106) mg/dL Calcium (8.5-10.1) mg/dL Total Bilirubin (0.2-1.0) mg/dL AST (15-37) U/L ALT (14-59) U/L Alkaline Phosphatase (46-116) U/L Total Protein (6.4-8.2) g/dL Albumin (3.4-5.0) g/dL Lipase (73-393) U/L Urine Color (Yellow) Yellow Urine Clarity (Clear) Clear Urine pH (5-8) >= 9.0 H Ur Specific Mellen (1.005-1.025) 1.020 Urine Protein (Negative) mg/dL 30 H Urine Ketones (Negative) mg/dL Negative Urine Blood (Negative) Negative Urine Nitrite (Negative) Negative Urine Bilirubin (Negative) Negative Urine Urobilinogen (Up TO 0.2) EU/dL 0.2 Ur Leukocyte Esterase (Negative) Negative Urine RBC (0-2) HPF 3-5 H Urine WBC (0-5) HPF 3-5 Ur Epithelial Cells (Negative) HPF Moderate Urine Crystals (Negative) HPF Negative Urine Bacteria (Negative) HPF Rare Urine Casts (Negative) LPF Negative Urine Mucus (Negative) Trace Ur Culture Indicated? No Urine Glucose (Negative) mg/dL Negative COVID-19 Source Cancelled Nasal/Nares SARS-CoV-2 (PCR) Cancelled ECG Data Attestation: I personally reviewed and interpreted this ECG (s) as follows: Interpretation: rate of 88, sinus, normal axis, no STEMI. QT 363. HPI General Mode of arrival: ambulatory . Date/Time Provider Initiated Documentation: 09/22/21 11:14 . Information obtained by: patient . HPI Narrative: Patient is a 55-year-old female with a history of hypertension, breast cancer, tubal ligation, section who is 1 week status post colonoscopy for chronic abdominal pain for the past 2 months presents for worsening of abdominal pain this morning. Patient states she has had constant dull and intermittent sharp lower abdominal pain for the past 2 months. She states she ate chicken and corn on the cob and strawberry circuit last night and had worsening pain since early this morning. She describes the pain as more intense than usual and is radiating to her upper abdomen. She states over the past few months she has not had any vomiting with her abdominal pain but has vomited multiple times which is mainly been food and bile. She states her last bowel movement was within normal limits this morning. She denies any fever, recent antibiotics, urinary symptoms Related Data Home Medications Medication Instructions Recorded Confirmed cyanocobalamin (vitamin B-12) 3,000 mcg PO DAILY 12/25/13 09/22/21 2,000 mcg tablet,extended release (Vitamin B-12 ER) cholecalciferol (vitamin D3) 25 25 mcg PO DAILY 08/08/19 09/22/21 mcg (1,000 unit) capsule (Vitamin D3) acetaminophen 500 mg tablet 1,000 mg PO Q8H PRN pain #90 tabs 08/15/19 09/22/21 trazodone 150 mg tablet 150 mg PO QHS PRN 08/25/20 09/22/21 ibuprofen 800 mg tablet 800 mg PO Q8H PRN 08/10/21 09/22/21 loratadine 10 mg tablet (Claritin) 10 mg PO DAILY PRN 08/10/21 09/22/21 Previous Rx's Medication Instructions Recorded acetaminophen 500 mg tablet 1,000 mg PO Q8H PRN pain #90 tabs 08/15/19 Allergies Allergy/AdvReac Type Severity Reaction Status Date / Time azithromycin [From Zithromax] Allergy Severe Rash Verified 09/15/21 13:57 clindamycin Allergy Severe Rash Verified 09/15/21 13:57 pineapple Allergy Severe Other (See Verified 09/15/21 13:57 Comment) doxycycline AdvReac Severe Rash Verified 09/15/21 13:57 sulfamethoxazole AdvReac Severe RASH Verified 09/15/21 13:57 [From Bactrim] trimethoprim [From Bactrim] AdvReac Severe RASH Verified 09/15/21 13:57 Sulfa (Sulfonamide AdvReac Intermediate Skin Rash Verified 09/15/21 13:57 Antibiotics) General Stated Complaint: Abd Prob RYLEE: 3 Review of Systems All systems reviewed & are unremarkable except as noted in HPI and below Constitutional Constitutional: Denies chills, Denies excessive sweating, Denies fatigue, Denies fever(s), Denies weakness and Denies weight loss Eyes Eyes: Reports system reviewed and no additional complaints, except as documented and Denies blurry vision ENT Ears, Nose, Mouth, and Throat: Denies vertigo, Denies dizziness, Denies otalgia, Denies nasal congestion, Denies sore throat and Denies throat swelling Cardiovascular Cardiovascular: Denies chest pain, Denies syncope, Denies rapid heart rate and Denies dyspnea Respiratory Respiratory: Denies chest congestion, Denies cough, Denies pain on inspiration and Denies dyspnea Gastrointestinal Gastrointestinal: Reports abdominal pain, Denies diarrhea, Reports nausea and Reports vomiting Genitourinary Genitourinary: Denies hematuria, Denies dysuria and Denies flank pain Musculoskeletal Musculoskeletal: Denies back pain and Denies joint swelling Integumentary/Breasts Skin/Breast: Denies lesions and Denies rash Neurologic Neurologic: Denies behavioral changes, Denies confusion, Denies vertigo, Denies dizziness, Denies syncope, Denies localized weakness and Denies weakness Psychiatric Psychiatric: Denies behavioral changes, Denies confusion and Denies depression Endocrine Endocrine: Denies excessive sweating and Denies fatigue Hematologic/Lymphatic Hematologic/Lymphatic: Denies easy bruising and Denies lymphadenopathy Allergic/Immunologic Allergic/Immunologic: Denies throat swelling PFSH All Active Problems (Updated 09/15/21 @ 13:58 by Bekah Mcintyre) Acute diverticulitis (Acute) Leukocytosis (Acute) Rectal cyst (Acute) Adenomatous colon polyp (Acute) Diverticula of colon (Acute) Smoker (Chronic) Depression (Chronic) Change in bowel habits (Acute) History of total left knee replacement (Acute 08/14/19) Medical History (Updated 09/22/21 @ 17:13 by Shantelle Hastings DO) Breast cancer, left breast Estrogen receptor positive status (ER+) Heart murmur 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 Vivar Hx of partial mastectomy left Lipoma of back Excision ~2009 Previous section x2 Status post arthroscopy of right knee Status post surgery for recurrent dislocation of shoulder Status post total knee replacement, left (08/14/19) Social History Smoking/Tobacco Use Status: Current every day Tobacco Type: cigarettes Smoking risk assessment performed?: Yes Alcohol Intake: current Alcohol Intake frequency: holidays/special occasions only Drug use: Never Substance use type: former substance user Current gender identity: female Do you feel safe at home: Yes Do you feel safe in your relationship?: Yes Exam Const General: cooperative and uncomfortable Orientation: alert, awake and oriented x3 HENMT Head: normal to inspection Ears: hearing grossly normal bilaterally, external ears normal and TM's normal bilaterally General nose exam: external nose normal Face and sinus: normal facial exam Mouth: oral mucosae normal Teeth and gingiva: dentition normal Throat: posterior oropharynx normal Eyes General: appearance normal, both eyes and all related structures Eyelids: eyelids normal Pupils: PERRL EOM: EOM intact bilaterally Neck Neck: normal visual inspection Lymphatic: no lymphadenopathy noted Chest Chest: normal inspection of the chest Resp Effort & Inspection: normal respiratory effort and able to speak in complete sentences Auscultation: clear to auscultation bilaterally Cardio Rate: regular rate Rhythm: regular rhythm GI Inspection: normal to inspection Palpation: soft, not firm, no guarding, no hepatosplenomegaly, no masses and nontender Auscultation: normal bowel sounds Back/Spine/Pelvis Back: no CVA tenderness Skin General skin exam: no rashes or lesions noted Neuro General: patient alert and patient awake Cognition: normal cognition Speech: speech normal Gait: normal gait Motor: muscle tone normal throughout Sensory Exam: no sensory deficits noted Extrem General: normal to inspection, full ROM and capillary refill normal Psych Appearance: grossly normal Mental Status: mental status grossly normal Speech and Movement: speech and movement normal Affect: normal affect Thought Process: normal Course Vital Signs Vital signs: Vital Signs Pulse 72 09/22/21 11:23 Respiratory Rate 20 09/22/21 11:23 Blood Pressure 169/77 H 09/22/21 11:23 Pulse Oximetry 97 09/22/21 11:23 Pulse 72 09/22/21 11:23 Respiratory Rate 20 09/22/21 11:23 Blood Pressure 169/77 H 09/22/21 11:23 Blood Pressure Position Sitting 09/22/21 11:23 Pulse Oximetry 97 09/22/21 11:23 Oxygen Delivery Method Room Air 09/22/21 11:23 Oxygen Flow Rate 0 09/22/21 11:23 Pain Level 3 09/22/21 11:23 Comment 09/22/21 11:23
--- NOTE | 2021-09-22 12:15 | DI.CT_ITS ---
Exam(s) CT ABDOMEN PELVIS WO EXAM: CT ABDOMEN PELVIS WO CLINICAL HISTORY: diffuse abd pain, vomiting. TECHNIQUE: Imaging Protocol: Axial computed tomography images with coronal and sagittal reformatted images were created and reviewed CONTRAST MATERIAL: Intravenous: none Oral: Yes COMPARISON: CR XR CHEST 2V PA LATERAL from 11/21/2020 FINDINGS: VISUALIZED LUNG BASES: No nodules nor pleural effusions evident. ABDOMEN: There is no ascites. LIVER: There are no obvious focal hepatic lesions evident of this noninfused study. GALLBLADDER/BILIARY: No obvious gallbladder pathology. CBD diameter is prominent, measuring 1.4 cm. However, there is no new Trish calculus in lower CBD nor obvious pancreatic head mass. PANCREAS: No evidence of pancreatic mass nor dilatation of the pancreatic duct. SPLEEN: Spleen is not enlarged. No obvious intrasplenic lesions. ADRENALS: There are no significant adrenal masses. KIDNEYS:No cysts evident. No solid renal masses. No calculi nor hydronephrosis. . ABDOMINAL AORTA: Abdominal aorta is not enlarged. LYMPH NODES: There is no retroperitoneal nor paraaortic adenopathy. ABDOMINAL WALL: No evidence of significant anterior abdominal wall nor inguinal hernia. GI: There is a benign appearing mural lipoma in the distal aspect of the duodenum measuring approxima tely 2.4 by 0.8 cm diameter of small bowel loops is upper normal. PELVIS: LYMPH NODES: There is no intrapelvic nor inguinal adenopathy. GI: No evidence of appendicitis.There is sigmoid diverticulosis. There is surrounding streaking and some fluid consistent with probable diverticulitis. URINARY BLADDER: No masses nor calculi. No distension. No gas within the bladder lumen. REPRODUCTIVE: Uterus normal size. No ovarian masses. OSSEOUS: No significant osseous lesions. Degenerative anterolisthesis L4 upon L5 due to facet arthropathy. IMPRESSION: 1. The main finding here is in the pelvis where there is streaking and fluid around the sigmoid which is involved with diverticular disease. Most probably consistent with diverticulitis. 2. CBD diameter is slightly prominent. There is no obvious radiopaque calculus in the lower CBD and no pancreatic head mass evident on this noninfused study. Correlation with appropriate blood work re commended. 3. 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 RADIATION DOSE DELIVERED: 1,438.17mGy.cm Total DLP DATA REPOSITORY: All CT scans at this facility are submitted to the National Radiology Data Registry (NRDR) Dose Index Registry (DIR) with the [employer] ([employer]). RADIATION OPTIMIZATION: All CT scans at this facility use at least one of these dose optimization te chniques: automated exposure control; mA and/or kV adjustment per patient size (includes targeted exa ms where dose is matched to clinical indication); or iterative reconstruction.
[2021-09-22 12:21] LABS: ALT 26 U/L (14-59); AST 24 U/L (15-37); Albumin 3.4 g/dL (3.4-5.0); Alkaline Phosphatase 111 U/L (46-116); Anion Gap 9.5 mmol/L (3-11); BUN 15 mg/dL (7-18); Bilirubin, Total 0.4 mg/dL (0.2-1.0); CO2 25.5 mmol/L (21.0-32.0); CREATININE 0.8 mg/dL (0.55-1.02); Calcium 9.5 mg/dL (8.5-10.1); Chloride 99 mmol/L (98-107); Glucose 151 mg/dL (74-106); Lipase 41 U/L (73-393); Potassium 4.3 mmol/L (3.5-5.1); Sodium 134 mmol/L (136-145); Total Protein 8.2 g/dL (6.4-8.2)
[2021-09-22 12:33] LABS: Abs Immature Grans 0.06 10^3/uL (0.0-0.06); Absolute Basophil Count 0.04 10^3/uL (0.0-0.2); Absolute Eosinophil Count 0.09 10^3/uL (0.0-0.7); Absolute Lymphocyte Count 1.12 10^3/uL (1.2-3.4); Absolute Monocyte Count 0.74 10^3/uL (0.1-0.8); Basophils % 0.3; Eosinophils % 0.6; HCT 44.6 % (36.0-46.0); HGB 14.3 g/dL (11.2-15.7); Immature Grans % 0.4; Lymphocytes % 7.7; MCH 28.1 pg (27.0-33.0); MCHC 32.1 % (32.0-36.0); MCV 88 fL (80-95); MPV 9.4 fL (8.0-11.0); Monocytes % 5.1; Neutrophils % 85.9; Platelet Count 278 10^3/uL (130-400); RBC 5.09 10^6/uL (3.93-5.22); RDW-SD 45.1 fL; WBC 14.49 10^3/uL (4.4-10.8)
[2021-09-22 12:34] LABS: Absolute Neutrophil Count 12.45 10^3/uL (1.2-6.7)
[2021-09-22] MEDS: Normal Saline 1,000 ML 1000 ML IV (12:39)
[2021-09-22] MEDS: HYDROmorphone 2 MG/ML VIAL 1 MG IVP (12:39)
[2021-09-22] MEDS: Ondansetron 4 MG/2 ML VIAL IVP ×2 (12:40→20:23)
[2021-09-22] MEDS: Breeza Beverage 473 ML BTL PO (12:43)
[2021-09-22 14:14] LABS: Bilirubin Negative (Negative); Blood Negative (Negative); Clarity Clear (Clear); Glucose Negative (Negative); Ketones Negative (Negative); Leukocyte Esterase Negative (Negative); Nitrite Negative (Negative); Urobilinogen 0.2 EU/dL (Up TO 0.2); pH >= 9.0 (5-8)
[2021-09-22 14:23] LABS: Bacteria Rare HPF (Negative); C & S Indicated? No; Casts Negative LPF (Negative); Crystals Negative HPF (Negative); Epithelial Cells Moderate HPF (Negative); Mucus Trace (Negative)
--- NOTE | 2021-09-22 16:15 | RT.EKG_ITS ---
APPROVED REPORT Exam: Resting ECG Reason for Exam: assess QT interval Patient Location: E HR:88 bpm ECG Measurements Heart Rate 88 AXIS RI 185 P 44 QRSd 95 QRS 89 QT 363 T 15 QTc 440 Conclusion Sinus rhythm...normal P axis, V-rate 60- 99 Low voltage, precordial leads...precordial leads <1.0mV. Sinus. Normal axis. No STEMI. I have reviewed and interpreted ECG and agree with software generated interpretation.
--- NOTE | 2021-09-22 16:36 | HPE_ITS ---
Date of service: 09/22/21 Time of Service: 16:36 Assessment and Plan Assessment and plan (1) Acute diverticulitis: Status: Acute Assessment and plan: Mrs Samayoa is a 55 year old 1 week s/p colonoscopy who comes to the ED with increase in severeity of her chronic abdominal pain. CT scan showed inflammation around the sigmoid colon. There is severe diverticulosis. No signs of perforation. Abdominal exam is benign. She does have Leukocytosis Will admit for IV antibiotics Clear liquids Ambulate Pain control with tylenol, toradol and morphine for breakthrough pain Zofran for nausea Repeat Labs in am If WBC count normalized and abdomen is still benign on exam will d/c home on augmentin History of Present Illness Consults Consult date: 09/22/21 Requesting physician: Shantelle Hastings Narrative: Patient is a 55-year-old female with a history of hypertension, breast cancer, tubal ligation, section who is 1 week status post colonoscopy for chronic abdominal pain for the past 2 months who presented to the ER for worsening of abdominal pain this morning.? Patient states she has had constant dull and intermittent sharp lower abdominal pain for the past 2 months.? She states she ate chicken and corn on the cob and strawberry shortcake last night and had worsening pain since early this morning.? She describes the pain as more intense than usual and is radiating to her upper abdomen.? She states over the past few months she has not had any vomiting with her abdominal pain but has vomited multiple times which is mainly been food and bile.? She states her last bowel movement was within normal limits this morning.? She denies any fever, recent antibiotics, urinary symptoms. Work up in the ER showed a Leukocytosis. CT scan showed diverticulitis low in the pelvis. No signs of perforation/free air. When I saw her in the ER she was comforatble. Review of Systems Constitutional Constitutional: Denies fever(s), Denies headache(s), Denies night sweats, Denies poor appetite and Denies weakness Eyes Eyes: Denies change in vision ENT Ears, Nose, Mouth, and Throat: Denies headache(s) and Denies hoarseness Cardiovascular Cardiovascular: Denies chest pain, Denies chest pain at rest, Denies irregular heart rhythm, Denies palpitations and Denies dyspnea Respiratory Respiratory: Denies cough and Denies dyspnea Gastrointestinal Gastrointestinal: Reports as per HPI Genitourinary Genitourinary: Reports system reviewed and no additional complaints, except as documented Musculoskeletal Musculoskeletal: Reports system reviewed and no additional complaints, except as documented Integumentary/Breasts Skin/Breast: Reports system reviewed and no additional complaints, except as documented Neurologic Neurologic: Denies headache(s) and Denies weakness Endocrine Endocrine: Denies palpitations PFSH All Active Problems Acute diverticulitis (Acute) Leukocytosis (Acute) Rectal cyst (Acute) Adenomatous colon polyp (Acute) Diverticula of colon (Acute) Smoker (Chronic) Depression (Chronic) Change in bowel habits (Acute) History of total left knee replacement (Acute 08/14/19) Medical History Breast cancer, left breast Estrogen receptor positive status (ER+) Heart murmur 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 Vivar Hx of partial mastectomy left Lipoma of back Excision ~2009 Previous section x2 Status post arthroscopy of right knee Status post surgery for recurrent dislocation of shoulder Status post total knee replacement, left (08/14/19) Social History Smoking/Tobacco Use Status: Current every day Tobacco Type: cigarettes Smoking risk assessment performed?: Yes Alcohol Intake: current Alcohol Intake frequency: holidays/special occasions only Drug use: Never Substance use type: former substance user Current gender identity: female Do you feel safe at home: Yes Do you feel safe in your relationship?: Yes Meds Allergies and Home Medications Allergies Allergy/AdvReac Type Severity Reaction Status Date / Time azithromycin [From Zithromax] Allergy Severe Rash Verified 09/15/21 13:57 clindamycin Allergy Severe Rash Verified 09/15/21 13:57 pineapple Allergy Severe Other (See Verified 09/15/21 13:57 Comment) doxycycline AdvReac Severe Rash Verified 09/15/21 13:57 sulfamethoxazole AdvReac Severe RASH Verified 09/15/21 13:57 [From Bactrim] trimethoprim [From Bactrim] AdvReac Severe RASH Verified 09/15/21 13:57 Sulfa (Sulfonamide AdvReac Intermediate Skin Rash Verified 09/15/21 13:57 Antibiotics) Home Medications Medication Instructions Recorded Confirmed Type cyanocobalamin (vitamin B-12) 3,000 mcg PO DAILY 12/25/13 09/22/21 History 2,000 mcg tablet,extended release (Vitamin B-12 ER) cholecalciferol (vitamin D3) 25 25 mcg PO DAILY 08/08/19 09/22/21 History mcg (1,000 unit) capsule (Vitamin D3) acetaminophen 500 mg tablet 1,000 mg PO Q8H PRN pain #90 tabs 08/15/19 09/22/21 Rx trazodone 150 mg tablet 150 mg PO QHS PRN 08/25/20 09/22/21 History ibuprofen 800 mg tablet 800 mg PO Q8H PRN 08/10/21 09/22/21 History loratadine 10 mg tablet (Claritin) 10 mg PO DAILY PRN 08/10/21 09/22/21 History Exam Const General: comfortable and no acute distress Orientation: alert and oriented x3 HENMT Head: normocephalic and atraumatic Resp Effort & Inspection: normal respiratory effort Auscultation: clear to auscultation bilaterally Cardio Rate: regular rate Rhythm: regular rhythm GI Inspection: normal to inspection and obesity Palpation: soft, no hepatosplenomegaly and tender (mild llq pain on deep palpation) Results Labs Result diagrams: 09/22/21 12:30 09/22/21 12:00 Labs: Laboratory Results - last 24 hr 09/22/21 09/22/21 09/22/21 12:00 12:00 12:30 WBC Cancelled 14.49 H RBC Cancelled 5.09 Hgb Cancelled 14.3 Hct Cancelled 44.6 MCV Cancelled 88 MCH Cancelled 28.1 MCHC Cancelled 32.1 RDW Cancelled 14.0 Plt Count Cancelled 278 MPV Cancelled 9.4 Immature Gran % Cancelled 0.4 Neutrophils % Cancelled 85.9 Band Neutrophils % Cancelled Lymphocytes % Cancelled 7.7 Atypical Lymphs % Cancelled Monocytes % Cancelled 5.1 Eosinophils % Cancelled 0.6 Basophils % Cancelled 0.3 Metamyelocytes % Cancelled Myelocytes % Cancelled Promyelocytes % Cancelled Other Cells % Cancelled Nucleated RBC % Cancelled 0.0 Absolute Neutrophils Cancelled 12.45 H Absolute Lymphocytes Cancelled 1.12 L Absolute Monocytes Cancelled 0.74 Absolute Eosinophils Cancelled 0.09 Absolute Basophils Cancelled 0.04 RBC Morphology Cancelled Polychromasia Cancelled Hypochromasia Cancelled Poikilocytosis Cancelled Basophilic Stippling Cancelled Anisocytosis Cancelled Microcytosis Cancelled Macrocytosis Cancelled Spherocytes Cancelled Tear Drop Cells Cancelled Ovalocytes Cancelled Stomatocytes Cancelled [place] Bodies Cancelled [place]ma Cells/Echinocytes Cancelled Acanthocytes (Spur) Cancelled Schistocytes Cancelled Sodium 134 L Potassium 4.3 Chloride 99 Carbon Dioxide 25.5 Anion Gap 9.5 BUN 15 Creatinine 0.8 Estimated GFR/1.73 m2 >= 60.00 Glucose 151 H Calcium 9.5 Total Bilirubin 0.4 AST 24 ALT 26 Alkaline Phosphatase 111 Total Protein 8.2 Albumin 3.4 Lipase 41 Urine Color Urine Clarity Urine pH Ur Specific [place] Urine Protein Urine Ketones Urine Blood Urine Nitrite Urine Bilirubin Urine Urobilinogen Ur Leukocyte Esterase Urine RBC Urine WBC Ur Epithelial Cells Urine Crystals Urine Bacteria Urine Casts Urine Mucus Ur Culture Indicated? Urine Glucose COVID-19 Source SARS-CoV-2 (PCR) 09/22/21 09/22/21 14:10 16:31 WBC RBC Hgb Hct MCV MCH MCHC RDW Plt Count MPV Immature Gran % Neutrophils % Band Neutrophils % Lymphocytes % Atypical Lymphs % Monocytes % Eosinophils % Basophils % Metamyelocytes % Myelocytes % Promyelocytes % Other Cells % Nucleated RBC % Absolute Neutrophils Absolute Lymphocytes Absolute Monocytes Absolute Eosinophils Absolute Basophils RBC Morphology Polychromasia Hypochromasia Poikilocytosis Basophilic Stippling Anisocytosis Microcytosis Macrocytosis Spherocytes Tear Drop Cells Ovalocytes Stomatocytes [place] Bodies [place] Cells/Echinocytes Acanthocytes (Spur) Schistocytes Sodium Potassium Chloride Carbon Dioxide Anion Gap BUN Creatinine Estimated GFR/1.73 m2 Glucose Calcium Total Bilirubin AST ALT Alkaline Phosphatase Total Protein Albumin Lipase Urine Color Yellow Urine Clarity Clear Urine pH >= 9.0 H Ur Specific [place] 1.020 Urine Protein 30 H Urine Ketones Negative Urine Blood Negative Urine Nitrite Negative Urine Bilirubin Negative Urine Urobilinogen 0.2 Ur Leukocyte Esterase Negative Urine RBC 3-5 H Urine WBC 3-5 Ur Epithelial Cells Moderate Urine Crystals Negative Urine Bacteria Rare Urine Casts Negative Urine Mucus Trace Ur Culture Indicated? No Urine Glucose Negative COVID-19 Source Cancelled SARS-CoV-2 (PCR) Cancelled Last Vital Signs Temp 98.8 F 09/22/21 15:58 Pulse 92 H 09/22/21 16:01 Resp 18 09/22/21 15:58 BP 123/74 09/22/21 16:01 Pulse Ox 89 L 09/22/21 15:58
[2021-09-22 16:42] LABS: Source Nasal/Nares
[2021-09-22] MEDS: PIPERACILLIN/TAZO 3.375 GM in Normal Saline 50 ML IVPB (17:04)
[2021-09-22 17:37] LABS: COVID-19 PCR Negative (Negative)
[2021-09-22 17:49] LABS: Lab Add On Test DONE
[2021-09-22] MEDS: Enoxaparin 40 MG/0.4 ML SYR SC (18:16)
[2021-09-22] MEDS: Lactated Ringers 1,000 ML 75 ML IV (18:17)
[2021-09-22 19:10] LABS: C-Reactive Protein 1.62 mg/dL (0.0-0.3)
[2021-09-22] MEDS: MORPHine 2 MG/ML SYR IVP (20:24)
[2021-09-22] MEDS: Docusate Sodium 100 MG CAP PO (20:24)
[2021-09-23] MEDS: PIPERACILLIN/TAZO 3.375 GM in Normal Saline 50 ML IVPB ×4 (00:05→17:40)
[2021-09-23] MEDS: Acetaminophen 325 MG TAB 650 MG PO (04:55)
[2021-09-23 07:05] LABS: Abs Immature Grans 0.03 10^3/uL (0.0-0.06); Absolute Basophil Count 0.02 10^3/uL (0.0-0.2); Absolute Eosinophil Count 0.21 10^3/uL (0.0-0.7); Absolute Lymphocyte Count 1.85 10^3/uL (1.2-3.4); Absolute Monocyte Count 0.49 10^3/uL (0.1-0.8); Absolute Neutrophil Count 6.36 10^3/uL (1.2-6.7); Basophils % 0.2; Eosinophils % 2.3; HCT 39.7 % (36.0-46.0); Immature Grans % 0.3; Lymphocytes % 20.6; MCH 28.7 pg (27.0-33.0); MCHC 32.7 % (32.0-36.0); MCV 88 fL (80-95); MPV 9.7 fL (8.0-11.0); Monocytes % 5.5; Neutrophils % 71.1; Platelet Count 245 10^3/uL (130-400); RBC 4.53 10^6/uL (3.93-5.22); RDW 14.2 % (11.7-14.6); RDW-SD 45.5 fL; WBC 8.96 10^3/uL (4.4-10.8)
[2021-09-23 07:20] VITALS: BP 116/73; PULSE 71; RESP 18; TEMP 36.3; O2SAT 93
[2021-09-23] MEDS: Lactated Ringers 1,000 ML 75 ML IV ×2 (07:25→21:44)
[2021-09-23] MEDS: Docusate Sodium 100 MG CAP PO ×3 (07:25→19:53)
[2021-09-23] MEDS: MORPHine 2 MG/ML SYR IVP ×2 (07:25→16:49)
--- NOTE | 2021-09-23 08:29 | PGE_ITS ---
Date of Service Date of service: 09/23/21 Time of Service: 08:00 Assessment and Plan Assessment and plan (1) Acute diverticulitis: Status: Acute Assessment and plan: Mrs Samayoa is a 55 year old 1 week s/p colonoscopy. CT scan showed inflammation around the sigmoid colon. There is severe diverticulosis. Leukocytosis has resolved Continue IV antibiotics today, will transition to PO antibiotics prior to d/c Tolerating Clear liquids with advance diet to fiber restricted normal Ambulate Pain is well controlled with tylenol, toradol and morphine for breakthrough pain Zofran for nausea Possible d/c home later today. Addendum by Lele Parks: She did pretty well through the afternoon, and's been able to tolerate a little bit of broth, although her diet is still quite limited. She says her pain is better. Her abdomen is soft and has some mild right-sided tenderness. We will continue the Zosyn for now and reassess her white blood cell count tomorrow. Subjective Subjective Interval history since last seen: Patient reports that she is feeling well this morning, but she does feel tired. Denies having any nausea or vomiting. No BMs since yesterday, which were loose. She denies having any abdominal pain at this time. Previously she was having pain when moving BMs. Exam Const General: cooperative, healthy appearing and comfortable Orientation: alert and oriented x3 Resp Effort & Inspection: normal respiratory effort, no audible wheezes and no cough GI Inspection: normal to inspection Palpation: soft, no guarding and nontender Objective Last Vital Signs Temp 36.3 C L 09/23/21 07:20 Pulse 71 09/23/21 07:20 Resp 18 09/23/21 07:20 BP 116/73 09/23/21 07:20 Pulse Ox 93 09/23/21 07:20 Laboratory Results - last 24 hr 09/22/21 09/22/21 09/22/21 12:00 12:00 12:00 WBC Cancelled RBC Cancelled Hgb Cancelled Hct Cancelled MCV Cancelled MCH Cancelled MCHC Cancelled RDW Cancelled Plt Count Cancelled MPV Cancelled Immature Gran % Cancelled Neutrophils % Cancelled Band Neutrophils % Cancelled Lymphocytes % Cancelled Atypical Lymphs % Cancelled Monocytes % Cancelled Eosinophils % Cancelled Basophils % Cancelled Metamyelocytes % Cancelled Myelocytes % Cancelled Promyelocytes % Cancelled Other Cells % Cancelled Nucleated RBC % Cancelled Absolute Neutrophils Cancelled Absolute Lymphocytes Cancelled Absolute Monocytes Cancelled Absolute Eosinophils Cancelled Absolute Basophils Cancelled RBC Morphology Cancelled Polychromasia Cancelled Hypochromasia Cancelled Poikilocytosis Cancelled Basophilic Stippling Cancelled Anisocytosis Cancelled Microcytosis Cancelled Macrocytosis Cancelled Spherocytes Cancelled Tear Drop Cells Cancelled Ovalocytes Cancelled Stomatocytes Cancelled [place] Bodies Cancelled [place] Cells/Echinocytes Cancelled Acanthocytes (Spur) Cancelled Schistocytes Cancelled Sodium 134 L Potassium 4.3 Chloride 99 Carbon Dioxide 25.5 Anion Gap 9.5 BUN 15 Creatinine 0.8 Estimated GFR/1.73 m2 >= 60.00 Glucose 151 H Calcium 9.5 Total Bilirubin 0.4 AST 24 ALT 26 Alkaline Phosphatase 111 C-Reactive Protein Total Protein 8.2 Albumin 3.4 Lipase 41 Urine Color Urine Clarity Urine pH Ur Specific [place] Urine Protein Urine Ketones Urine Blood Urine Nitrite Urine Bilirubin Urine Urobilinogen Ur Leukocyte Esterase Urine RBC Urine WBC Ur Epithelial Cells Urine Crystals Urine Bacteria Urine Casts Urine Mucus Ur Culture Indicated? Urine Glucose COVID-19 Source SARS-CoV-2 (PCR) Add-On Test Request DONE 09/22/21 09/22/21 09/22/21 12:00 12:30 14:10 WBC 14.49 H RBC 5.09 Hgb 14.3 Hct 44.6 MCV 88 MCH 28.1 MCHC 32.1 RDW 14.0 Plt Count 278 MPV 9.4 Immature Gran % 0.4 Neutrophils % 85.9 Band Neutrophils % Lymphocytes % 7.7 Atypical Lymphs % Monocytes % 5.1 Eosinophils % 0.6 Basophils % 0.3 Metamyelocytes % Myelocytes % Promyelocytes % Other Cells % Nucleated RBC % 0.0 Absolute Neutrophils 12.45 H Absolute Lymphocytes 1.12 L Absolute Monocytes 0.74 Absolute Eosinophils 0.09 Absolute Basophils 0.04 RBC Morphology Polychromasia Hypochromasia Poikilocytosis Basophilic Stippling Anisocytosis Microcytosis Macrocytosis Spherocytes Tear Drop Cells Ovalocytes Stomatocytes [place] Bodies [place] Cells/Echinocytes Acanthocytes (Spur) Schistocytes Sodium Potassium Chloride Carbon Dioxide Anion Gap BUN Creatinine Estimated GFR/1.73 m2 Glucose Calcium Total Bilirubin AST ALT Alkaline Phosphatase C-Reactive Protein 1.62 H Total Protein Albumin Lipase Urine Color Yellow Urine Clarity Clear Urine pH >= 9.0 H Ur Specific [place] 1.020 Urine Protein 30 H Urine Ketones Negative Urine Blood Negative Urine Nitrite Negative Urine Bilirubin Negative Urine Urobilinogen 0.2 Ur Leukocyte Esterase Negative Urine RBC 3-5 H Urine WBC 3-5 Ur Epithelial Cells Moderate Urine Crystals Negative Urine Bacteria Rare Urine Casts Negative Urine Mucus Trace Ur Culture Indicated? No Urine Glucose Negative COVID-19 Source SARS-CoV-2 (PCR) Add-On Test Request 09/22/21 09/22/21 09/23/21 16:31 16:38 06:15 WBC RBC Hgb Hct MCV MCH MCHC RDW Plt Count MPV Immature Gran % Neutrophils % Band Neutrophils % Lymphocytes % Atypical Lymphs % Monocytes % Eosinophils % Basophils % Metamyelocytes % Myelocytes % Promyelocytes % Other Cells % Nucleated RBC % Absolute Neutrophils Absolute Lymphocytes Absolute Monocytes Absolute Eosinophils Absolute Basophils RBC Morphology Polychromasia Hypochromasia Poikilocytosis Basophilic Stippling Anisocytosis Microcytosis Macrocytosis Spherocytes Tear Drop Cells Ovalocytes Stomatocytes [place] Bodies [place] Cells/Echinocytes Acanthocytes (Spur) Schistocytes Sodium Potassium Chloride Carbon Dioxide Anion Gap BUN Creatinine Estimated GFR/1.73 m2 Glucose Calcium Total Bilirubin AST ALT Alkaline Phosphatase C-Reactive Protein 1.40 H Total Protein Albumin Lipase Urine Color Urine Clarity Urine pH Ur Specific [place] Urine Protein Urine Ketones Urine Blood Urine Nitrite Urine Bilirubin Urine Urobilinogen Ur Leukocyte Esterase Urine RBC Urine WBC Ur Epithelial Cells Urine Crystals Urine Bacteria Urine Casts Urine Mucus Ur Culture Indicated? Urine Glucose COVID-19 Source Cancelled Nasal/Nares SARS-CoV-2 (PCR) Cancelled Negative Add-On Test Request 09/23/21 06:15 WBC 8.96 RBC 4.53 Hgb 13.0 Hct 39.7 MCV 88 MCH 28.7 MCHC 32.7 RDW 14.2 Plt Count 245 MPV 9.7 Immature Gran % 0.3 Neutrophils % 71.1 Band Neutrophils % Lymphocytes % 20.6 Atypical Lymphs % Monocytes % 5.5 Eosinophils % 2.3 Basophils % 0.2 Metamyelocytes % Myelocytes % Promyelocytes % Other Cells % Nucleated RBC % 0.0 Absolute Neutrophils 6.36 Absolute Lymphocytes 1.85 Absolute Monocytes 0.49 Absolute Eosinophils 0.21 Absolute Basophils 0.02 RBC Morphology Polychromasia Hypochromasia Poikilocytosis Basophilic Stippling Anisocytosis Microcytosis Macrocytosis Spherocytes Tear Drop Cells Ovalocytes Stomatocytes [place] Bodies [place] Cells/Echinocytes Acanthocytes (Spur) Schistocytes Sodium Potassium Chloride Carbon Dioxide Anion Gap BUN Creatinine Estimated GFR/1.73 m2 Glucose Calcium Total Bilirubin AST ALT Alkaline Phosphatase C-Reactive Protein Total Protein Albumin Lipase Urine Color Urine Clarity Urine pH Ur Specific [place] Urine Protein Urine Ketones Urine Blood Urine Nitrite Urine Bilirubin Urine Urobilinogen Ur Leukocyte Esterase Urine RBC Urine WBC Ur Epithelial Cells Urine Crystals Urine Bacteria Urine Casts Urine Mucus Ur Culture Indicated? Urine Glucose COVID-19 Source SARS-CoV-2 (PCR) Add-On Test Request
[2021-09-23] MEDS: Normal Saline Flush 10 ML SYR IVP ×3 (09:21→14:25)
[2021-09-23] MEDS: Ondansetron 4 MG/2 ML VIAL IVP ×2 (09:21→13:31)
[2021-09-23] MEDS: Ketorolac 15 MG/ML VIAL IVP (14:24)
[2021-09-23 15:00] VITALS: O2SAT 93
[2021-09-23 15:25] VITALS: BP 109/71; PULSE 71; RESP 18; TEMP 36.7; O2SAT 93
--- NOTE | 2021-09-23 16:15 | INITIAL_ITS ---
- If Service Date Differs Date of service: 09/23/21 Time of Service: 16:16 Care Management Initial Assess REASON FOR HOSPITALIZATION:: Acute diverticulitis PAST MEDICAL HISTORY/PAST SURGICAL HISTORY:: All Active Problems. Acute diverticulitis (Acute). Leukocytosis (Acute). Rectal cyst (Acute). Adenomatous colon polyp (Acute). Diverticula of colon (Acute). Smoker (Chronic). Depression (Chronic). Change in bowel habits (Acute). History of total left knee replacement (Acute 08/14/19). Medical History. Breast cancer, left breast. Estrogen receptor positive status (ER+). Heart murmur. 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 Denies any other provider commenting. Hyperlipidemia. Insomnia. Morbid obesity. Narcotic dependence. 2013 rehab/recovery. Patellar clunk syndrome of right knee. s/p arthroscopic synovectomy (08/14/19). Seasonal allergies. Superficial thrombophlebitis. Surgical History. History of total right knee replacement (TKR) (01/03/19). Dr. Vivar. Hx of partial mastectomy. left. Lipoma of back. Excision. ~2009. Previous section. x2. Status post arthroscopy of right knee. Status post surgery for recurrent dislocation of shoulder. 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 She also spends her time off in [place] at her friend, Lele's home. She has two adult children, Mckenzie and Mo. Her sister lives in [place], but is identified as a support as well. She is independent at baseline. CURRENT FUNCTIONAL STATUS:: Yoselin was sitting up in a chair when CM met with her. She stated that she is feeling better today, but is not sure if she will tolerate the meal that she recently ate, as her RN had to give her some anti nauseau medication. She reported that she is independent at baseline and does not anticipate the need for services. CM will continue to follow. ADVANCE DIRECTIVES:: Not on file. Has patient been provided with info about the portal/API?: Yes Did the patient sign up for the portal?: No CODE STATUS:: Full Code INSURANCE COVERAGE / FINANCIAL ISSUES:: [employer] CURRENT HOME/COMMUNITY SERVICES/EQUIPMENT:: None PRIMARY CARE PHYSICIAN:: Jemal Schmidt POTENTIAL DISCHARGE NEEDS:: Follow up appointments PATIENT/FAMILY EDUCATION NEEDS:: Review discharge instructions including activity levels and medication, discussion of self care needs including Ask Me Three ANTICIPATED BARRIERS TO DISCHARGE:: None. TRANSPORTATION:: Via private vehicle by a friend. PLAN:: Anticipate Yoselin will return home with no additional services. She will have a follow up appointment with surgical services, as recommended. Lele, her S/O will drive her home via private vehicle. CM will follow.
[2021-09-23] MEDS: Enoxaparin 40 MG/0.4 ML SYR SC (17:40)
[2021-09-23] MEDS: traZODone 50 MG TAB 150 MG PO (22:00)
[2021-09-23 23:10] VITALS: BP 126/82; PULSE 68; RESP 18; TEMP 36.6; O2SAT 96
[2021-09-24] MEDS: PIPERACILLIN/TAZO 3.375 GM in Normal Saline 50 ML IVPB ×3 (00:50→12:04)
[2021-09-24] MEDS: Acetaminophen 325 MG TAB 650 MG PO (06:58)
[2021-09-24 07:39] VITALS: BP 131/85; PULSE 61; RESP 18; TEMP 36.8; O2SAT 94
[2021-09-24] MEDS: Docusate Sodium 100 MG CAP PO ×2 (07:40→13:28)
[2021-09-24] MEDS: Ondansetron 4 MG/2 ML VIAL IVP (09:26)
--- NOTE | 2021-09-24 09:30 | W.PM.PROGNOT ---
Date of Service Date of service: 09/24/21 Time of Service: 07:01 Assessment and Plan Assessment and plan (1) Acute diverticulitis: Status: Acute Assessment and plan: Mrs Samayoa is a 55 year old 1 week s/p colonoscopy. CT scan showed inflammation around the sigmoid colon. There is severe diverticulosis. Continue IV antibiotics today, will transition to PO antibiotics prior to d/c Tolerating low fiber diet COntinue with Ambulation and activity OOB Pain is well controlled Zofran for nausea Possible d/c home later today. Discussed having a follow up visit on Thursday 09/28 to reassess and discuss returning to work. Addendum by Lele Parks: She did well through the morning time, and is tolerated both her breakfast and her lunch. She is currently pain-free and interested in being discharged home with assistance from her friend. Her abdomen soft, nontender and nondistended. Her bowel sounds are normal. I will discharge her home with a 14-day course of Augmentin, and we can see her in the office next week. Subjective Subjective Interval history since last seen: Arrived with patient sitting up in the chair sipping on some coffee. Patient states she is feeling better however does continue to have intermittent cramping left lower quadrant pain. She has been tolerating the soft regular diet without any nausea or vomiting. She expresses eagerness to be discharged home. 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 Exam Const General: cooperative, healthy appearing and comfortable Orientation: alert and oriented x3 Resp Effort & Inspection: normal respiratory effort, no audible wheezes and no cough GI Inspection: normal to inspection Palpation: soft, no guarding and nontender Auscultation: normal bowel sounds Objective Last Vital Signs Temp 36.8 C 09/24/21 07:39 Pulse 61 09/24/21 07:39 Resp 18 09/24/21 07:39 BP 131/85 09/24/21 07:39 Pulse Ox 94 09/24/21 07:39
[2021-09-24 13:02] LABS: HCT 39.3 % (36.0-46.0); HGB 12.9 g/dL (11.2-15.7); MCH 28.9 pg (27.0-33.0); MCHC 32.8 % (32.0-36.0); MCV 88 fL (80-95); MPV 9.6 fL (8.0-11.0); Platelet Count 243 10^3/uL (130-400); RBC 4.46 10^6/uL (3.93-5.22); RDW 13.9 % (11.7-14.6); RDW-SD 44.7 fL; WBC 6.28 10^3/uL (4.4-10.8)
[2021-09-24] MEDS: Lactated Ringers 1,000 ML 75 ML IV (13:12)
--- NOTE | 2021-09-24 13:49 | CHAPLAIN ---
Yoselin was up in the chair when I visited. I introduced myself and explained my role. Yoselin said she's been in touch with family. She had a visitor arrive as I was leaving.
--- NOTE | 2021-09-24 14:55 | DSE_ITS ---
Date of service: 09/24/21 Time of Service: 14:55 DS: Diagnosis Discharge Diagnosis (1) Acute diverticulitis: Status: Acute Discharge Plan Disposition Patient Disposition: HOME Condition: Stable Discharge Details Reason For Visit: Acute Diverticulitis,Leukocytosis Admit Date/Time: 09/22/21 16:27 Admit Provider: Tanya Juarez Attending Provider: Tanya Juarez [facility] Hospital Course: Ms. Samayoa is a 55-year-old woman who presented to the emergency department on September 22, 2021 with a chief complaint of acute exacerbation of abdominal pain. She had a leukocytosis around 15 and a CAT scan consistent with acute diverticulitis. She was started on Zosyn and admitted for serial abdominal exams. By the next day, her abdominal pain was resolved, and her leukocytosis was improving. Diet was slowly advanced. By September 24, her white blood cell count was completely normal, and she was tolerating breakfast and lunch. I discharged her home with a 14-day course of Augmentin and Flagyl, and we will see her in the office next week. Home Meds and New Rx's Prescriptions: New amoxicillin-pot clavulanate 200-28.5 mg tablet,chewable 4 tab PO BID Qty: 112 0RF Rx Instructions: take 4 tabs in the morning and 4 tabs in the evening. Complete 14 days of treatment Continued trazodone 150 mg tablet 150 mg PO QHS PRN loratadine [Claritin] 10 mg tablet 10 mg PO DAILY PRN ibuprofen 800 mg tablet 800 mg PO Q8H PRN acetaminophen 500 mg tablet 1,000 mg PO Q8H PRN (Reason: pain) Qty: 90 3RF Label Comments: 09/15/21 500mg tylenol No Action cyanocobalamin (vitamin B-12) [Vitamin B-12] 2,000 MCG tablet extended release 3,000 mcg PO DAILY cholecalciferol (vitamin D3) [Vitamin D3] 25 mcg (1,000 unit) Capsule 25 mcg PO DAILY Discharge Instructions Additional Instructions: Complete prescriptions for Augmentin and Flagyl. Take as instructed. Referrals: Lele Parks MD [ [facility] STAFF PHYSICIAN] - Activity:: Activity as Tolerated Equipment/Supplies:: No Equipment Needed Diet:: As Tolerated Discharge Data Discharge Comment: Please arrange follow-up with [facility] surgical Assoc DS: Summary Time Spent with Patient providing and/or coordinating discharge services: Less than 30 minutes Status at Discharge Functional status at discharge: independent ambulation Overall status at discharge: patient is back to baseline Mental Status: mental status grossly normal Speech and Movement: speech and movement normal Mood: congruent mood Affect: normal affect Exam Const General: cooperative and healthy appearing Nutritional Appearance: overweight Orientation: alert, awake and oriented x3 Eyes General: appearance normal, both eyes and all related structures Resp Effort & Inspection: normal respiratory effort and able to speak in complete sentences Auscultation: clear to auscultation bilaterally Cardio Rate: regular rate GI Inspection: normal to inspection and non-distended Palpation: soft, not firm, no guarding and nontender Auscultation: normal bowel sounds Skin General skin exam: no rashes or lesions noted Neuro General: patient alert and patient awake Cognition: normal cognition Psych Mental Status: mental status grossly normal Speech and Movement: speech and movement normal Mood: congruent mood Affect: normal affect DS: Data Vitals/I&O Vitals and I&O: Vital Signs Temperature 98.2 F 09/24/21 07:39 Temperature Source Tympanic 09/24/21 07:39 Pulse 61 09/24/21 07:39 Pulse Rhythm Regular 09/24/21 07:40 Pulse 66 09/22/21 13:50 Respiratory Rate 18 09/24/21 07:39 Respiratory Effort Non-Labored 09/24/21 07:40 Respiratory Depth Normal 09/24/21 07:40 Respiratory Pattern Normal 09/24/21 07:40 Blood Pressure 131/85 09/24/21 07:39 Blood Pressure Mean 80 09/22/21 16:41 Blood Pressure Position Sitting 09/22/21 11:23 Pulse Oximetry 94 09/24/21 07:39 Oxygen Delivery Method Room Air 09/24/21 07:39 Oxygen Flow Rate 0 09/24/21 07:39 Pain Level 2 09/24/21 07:39 Comment 09/22/21 17:39 Intake & Output 09/23/21 09/24/21 09/24/21 23:59 11:59 23:59 Intake Total 1580 / 2665 1580 / 2110 530 / 2110 Output Total 450 / 1000 1700 / 1700 Balance 1130 / 1665 -120 / 410 530 / 410 Intake: IV 1100 / 2185 1100 / 1150 50 / 1150 Oral 480 / 480 480 / 960 480 / 960 Output: Urine 450 / 1000 1700 / 1700 Other: Urine Color Light Maria Victoria Straw Urine Appearance Clear Clear Urine Odor Normal Normal Voiding Methods Toilet Toilet Data Completed and Pending Labs on day of discharge: Labs from last 24 hours 09/24/21 12:38 WBC 6.28 RBC 4.46 Hgb 12.9 Hct 39.3 MCV 88 MCH 28.9 MCHC 32.8 RDW 13.9 Plt Count 243 MPV 9.6 PFSH All Active Problems Acute diverticulitis (Acute) Leukocytosis (Acute) Rectal cyst (Acute) Adenomatous colon polyp (Acute) Diverticula of colon (Acute) Smoker (Chronic) Depression (Chronic) Change in bowel habits (Acute) History of total left knee replacement (Acute 08/14/19) Medical History Breast cancer, left breast Estrogen receptor positive status (ER+) Heart murmur 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 Vivar Hx of partial mastectomy left Lipoma of back Excision ~2009 Previous section x2 Status post arthroscopy of right knee Status post surgery for recurrent dislocation of shoulder Status post total knee replacement, left (08/14/19) Social History Smoking/Tobacco Use Status: Current every day Tobacco Type: cigarettes Smoking risk assessment performed?: Yes Alcohol Intake: current Alcohol Intake frequency: holidays/special occasions only Drug use: Never Substance use type: former substance user Current gender identity: female Do you feel safe at home: Yes Do you feel safe in your relationship?: Yes
[2021-09-24 15:00] VITALS: BP 147/79; PULSE 65; RESP 16; TEMP 36.6; O2SAT 97
--- NOTE | 2021-09-24 15:35 | PDOC.CMDIS ---
- If Service Date Differs Date of service: 09/24/21 Time of Service: 15:35 LACE Index Scoring Tool - Questions: Length of Stay (in days): 2 Acuity (Admit via E.D.?): Yes Comorbidities: Any Tumor E.D. Visits: 1 - Answers: Total Score: 8 Risk of Readmission: Low Risk Care Management Discharge Reason for Hospitalization: Acute diverticulitis Discharge Plan: Yoselin will return home with no additional services. She will have a follow up appointment with surgical services, as recommended. Lele, her S/O will drive her home via private vehicle. Patient/Family Education Needs: Review discharge instructions including activity levels and medication, discussion of self care needs including Ask Me Three
== END 2021-09-24 17:31 | disposition home or self-care (01) ==
LOC: ER 17:13 → MS 17:43
PROVIDERS: Physical Therapy Assistant; Surgery; Admitting Provider Surgery; Emergency Provider Physician Assistant; PCP Internal Medicine; Visit Provider Surgery
DX: K57.32 Diverticulitis of large intestine without perforation or abscess without bleeding (principal); I10 Essential (primary) hypertension; F17.210 Nicotine dependence, cigarettes, uncomplicated; E78.5 Hyperlipidemia, unspecified; E66.01 Morbid (severe) obesity due to excess calories; Z68.42 Body mass index [BMI] 45.0-49.9, adult; Z85.3 Personal history of malignant neoplasm of breast; F32.A Depression, unspecified; Z96.652 Presence of left artificial knee joint; Z20.822 Contact with and (suspected) exposure to COVID-19; R11.11 Vomiting without nausea; D72.829 Elevated white blood cell count, unspecified
CPT/HCPCS: 36415; 80053; 81025; 83690; 85027; 87635; 93005; 96361; 96365; 96366; 96372; 96374; 96375; 96376; 99285; J1650; 74176; 81003; 81015; 85025; 86140; 93010; G0378; J1885; J2270; J2405; J2543; J3490

== ENCOUNTER 2021-10-04 15:36 | Outpatient (REF) | payer MEDICAID, SELFPAY | END 2021-10-04 15:37 | disposition home or self-care (01) | LOC: LBN 15:36 | PROVIDERS: PCP Internal Medicine; Visit Provider Surgery ==

== ENCOUNTER 2021-10-21 14:02 | Outpatient (REF) | payer MEDICAID, SELFPAY ==
--- NOTE | 2021-10-21 11:55 | PAPFT_PTH ---
PATIENT: Yoselin Samayoa LOC: [facility]#:[id number] AGE/SX: 55/F ROOM: RE10/21/[address]: Christiane Green : 1965 BED: DIS: 10/21/2021 SPEC #: [id number] RECD: 10/22/21 11:29 STATUS: KWASI FONSECA #: [id number] YE: 10/21/21 11:[address]: Christiane Green DEPT: [facility] Cytology RECD BY: Jannet Velasco ENTERED: 10/22/21 11:31 SP TYPE: PAPFT OTHR DR: Jemal Schmidt Tissues: 1 - CX/ENDOCX FOR PAP SMEARS Procedures: PAP THIN PREP/UVM Screening HPV DNA PROBE Comments: [id number]
== END 2021-10-21 14:03 | disposition home or self-care (01) ==
LOC: NCHCN 14:02
PROVIDERS: PCP Internal Medicine; Visit Provider Physician Assistant
DX: Z11.51 Encounter for screening for human papillomavirus (HPV) (principal); Z12.4 Encounter for screening for malignant neoplasm of cervix
CPT/HCPCS: 88142; 87624

== ENCOUNTER 2021-10-23 12:50 | Outpatient (CLI) | payer MEDICAID, SELFPAY ==
[2021-10-23 10:55] LABS: Abs Immature Grans 0.02 10^3/uL (0.0-0.06); Absolute Basophil Count 0.03 10^3/uL (0.0-0.2); Absolute Eosinophil Count 0.14 10^3/uL (0.0-0.7); Absolute Lymphocyte Count 1.47 10^3/uL (1.2-3.4); Absolute Monocyte Count 0.81 10^3/uL (0.1-0.8); Absolute Neutrophil Count 5.29 10^3/uL (1.2-6.7); Basophils % 0.4; Eosinophils % 1.8; HCT 46.6 % (36.0-46.0); HGB 15.6 g/dL (11.2-15.7); Immature Grans % 0.3; Lymphocytes % 18.9; MCH 28.8 pg (27.0-33.0); MCHC 33.5 % (32.0-36.0); MCV 86 fL (80-95); MPV 9.4 fL (8.0-11.0); Monocytes % 10.4; Neutrophils % 68.2; Platelet Count 205 10^3/uL (130-400); RBC 5.41 10^6/uL (3.93-5.22); RDW 14.7 % (11.7-14.6); RDW-SD 46.4 fL; WBC 7.76 10^3/uL (4.4-10.8)
[2021-10-23 11:04] LABS: Anion Gap 8.5 mmol/L (3-11); BUN 13 mg/dL (7-18); CO2 25.5 mmol/L (21.0-32.0); CREATININE 0.8 mg/dL (0.55-1.02); Calcium 9.1 mg/dL (8.5-10.1); Chloride 102 mmol/L (98-107); Glucose 108 mg/dL (74-106); Potassium 3.9 mmol/L (3.5-5.1); Sodium 136 mmol/L (136-145)
== END 2021-10-23 12:51 | disposition home or self-care (01) ==
LOC: LBO 12:50
PROVIDERS: PCP Internal Medicine; Visit Provider Physical Therapy Assistant
DX: K57.30 Diverticulosis of large intestine without perforation or abscess without bleeding (principal); K57.92 Diverticulitis of intestine, part unspecified, without perforation or abscess without bleeding
CPT/HCPCS: 36415; 80048; 85025

== ENCOUNTER 2022-05-03 04:07 | Emergency (ER) | payer MEDICAID, SELFPAY ==
--- NOTE | 2022-05-03 04:00 | RT.EKG_ITS ---
APPROVED REPORT Exam: Resting ECG Reason for Exam: short of breath Patient Location: E HR:103 bpm ECG Measurements Heart Rate 103 AXIS WI 154 P 11 QRSd 91 QRS 101 QT 344 T 23 QTc 450 Conclusion Sinus tachycardia...rate> 99 Right axis deviation...QRS axis (100,269)
[2022-05-03 04:11] VITALS: BP 154/84; PULSE 103; RESP 25; TEMP 38; O2SAT 97
--- NOTE | 2022-05-03 04:15 | DI.CT_ITS ---
Exam(s) CT CHEST PE ABD PELVIS W EXAM: CT CHEST PE ABD PELVIS W CLINICAL HISTORY: shortness of breath, chest pain, upper abd pain. TECHNIQUE: Imaging Protocol: Axial computed tomography images with coronal and sagittal reformatted images were created and reviewed CONTRAST MATERIAL: Intravenous: Omnipaque 350 Contrast volume:100 ml Oral: / no COMPARISON: CT CT ABDOMEN PELVIS WO from 09/22/2021 FINDINGS: CHEST: Soft tissues: Skin thickening over the left breast, presumably post treatment changes for breast canc er. Tracheobronchial tree: Patent where visualized. Pulmonary parenchyma: No consolidation or dominant measurable mass. Pleura: No effusion or pneumothorax. Lymph nodes: Within normal limits. Aorta: Thoracic portion non-dilated. Heart: Not enlarged. Mild coronary artery calcifications. Bones: Degenerative changes. Question of increased sclerosis within posterior elements of the upper thoracic region which appear somewhat symmetric which may be degenerative. no lytic lesions.No comp ression fractures. ABDOMEN: Liver: Enlarged, fatty infiltration. No measurable mass. Gallbladder and biliary tract: No radiodense calculus. Stable dilatation of the common bile duct. Pancreas: Normal density, no abnormal calcifications or inflammatory process. Spleen: Normal. Kidneys: Normal size, contour and axis. No radiodense stones or obstructive uropathy. No suspicious m asses seen. Adrenal glands: No masses seen. Aorta: Abdominal portion non-dilated. Distal aorta and proximal iliac arteries heavily calcified. Lymph nodes: Within normal limits. Soft tissues: Unremarkable. Stomach and small bowel: Stable appearance of small lipoma in the transverse duodenum. PELVIS: Bladder: Symmetric distention, no gross wall thickening. Bowel: No obstruction or bowel wall thickening. Peritoneal cavity: No ascites, collection or mesenteric inflammatory response. Bones: Degenerative changes. Reproductive organs: Within normal limits. IMPRESSION: No acute abnormality in the chest, abdomen or pelvis.. Stable dilatation of the common bile duct. No visible obstructing stone or mass. RADIATION DOSE DELIVERED: 2,364.64mGy.cm Total DLP DATA REPOSITORY: All CT scans at this facility are submitted to the National Radiology Data Registry (NRDR) Dose Index Registry (DIR) with the [employer] (A[employer]). RADIATION OPTIMIZATION: All CT scans at this facility use at least one of these dose optimization te chniques: automated exposure control; mA and/or kV adjustment per patient size (includes targeted exa ms where dose is matched to clinical indication); or iterative reconstruction.
--- NOTE | 2022-05-03 04:32 | ED.GENADUL_ITS ---
Discharge Plan Disposition Patient Disposition: Home Condition: Stable Discharge Details Clinical Impression: Shortness of breath, Cough, Cellulitis Primary Care Provider: Jemal Schmidt ED Provider: Nathan Lazcano Home Meds and New Rx's Prescriptions: New prednisone 20 mg tablet 60 mg PO DAILY 4 Days Qty: 12 0RF amoxicillin-pot clavulanate 875-125 mg tablet 1 tab PO BID Qty: 14 0RF Continued Acidophilus Capsule 1,200 mg PO DAILY Qty: 30 3RF fluoxetine [Prozac] 10 mg capsule 10 mg PO DAILY trazodone 150 mg tablet 150 mg PO QHS PRN loratadine [Claritin] 10 mg tablet 10 mg PO DAILY PRN famotidine [Heartburn Relief (famotidine)] 20 mg tablet 20 mg PO QHS Qty: 60 0RF acetaminophen 500 mg tablet 1,000 mg PO Q8H PRN (Reason: pain) Qty: 90 3RF Patient Comments: 09/15/21 500mg tylenol Discharge Instructions Instructions: Cellulitis (ED) Additional Instructions: Follow up with your primary care provider within 1 week if you feel more ill, have severe worsening pain or difficulty breathing return to the emergency department Medical Decision Making 56 yo female with hx of smoking, depression, who comes in with chief complaint of fever for 2 days, cough and chest pain along with upper abdomen pain and a rash on her abdomen. She states she has had cold symptoms for a week including runny nose and dry cough but then yesterday started with fevers and chills as well as anterior chest pain and epigastric pain. She arrives febrile, stable bp and has normal oxygenation, mildly tachycardic at 105. She is caox4 speaking clearly. She has diffuse wheezing in all lung guy bilaterally. She has no murmurs, no jvd. She has erythema of the upper half of her abdomen that blanches, is mildly warm to touch but is not tender and has no crepitus. No mucous membrane lesions. She does have tenderness without guarding to the epigastric and ruq areas of her abdomen. No meninigismus. Unclear etiology for her symptoms, will obtain fluvid, cta of the chest to evaluate for possible pe vs pneumonia, as well as ct abdomen/pelvis to evaluate for possible cholecystitis. Will also botain cbc, cmp, ekg/troponin, lipase. Her rash does have the appearance of possible urticaria, will administer benadryl and for her wheezing treat with duoneb and dexamethasone pt's wbc of 18, negative covid, rash unchanged with decadron and benadryl, will treat with a dose of ceftriaxone for potential cellulitis while imaging pending pt stable, ct shows common bile duct dilation with normal appearing gallbladder, lfts and bili unremarkable. She is stable, has no abdominal pain now nor any tenderness in the abdomen so doubt choleycstitis. fluvid negative, no pneumonia on ct. Dicussed with pt suspect cellulitis as source for herfever. She now recalls that her cat jumped on her on Tuesday in the area she now has erythema. We are at capacity for beds and she declines to be transferred for iv abx and admission and advises she wants to go home with oral antibiotics and will return if worsening. She understands the risks of leaving including worsening infection leading to disability and possibly and she is willing to accept these risks. She has decision making capacity. Will start her on clindamycin and augmentin to cover both strep as she has no risk factors for staph. Differential Diagnosis Differential Diagnosis: covid, flu, pneumonia, cholecystitis, hives Imaging Data Radiologic Study: Attestation: I personally reviewed and interpreted this imaging study as follows: Imaging: CT Scan Radiologist's impression: 1. Asymmetric skin thickening in the left breast. Direct inspection recommended. Known history of breast cancer by report. 2. No thoracic or abdominal aortic aneurysm or dissection. 3. Moderate gallbladder distention. Prominent dilatation of the common bile duct measuring 13 mm. No calcified gallstones. Clinical correlation is recommended. If there is concern for distal biliary obstruction, MRI with MRCP could be obtained for additional evaluation. 4. No acute bowel pathology demonstrated. Lab Data Lab results reviewed: Yes I reviewed the patient's lab results. ECG Data Attestation: I personally reviewed and interpreted this ECG (s) as follows: Prior ECG tracings: not available for review Interpretation: sinus tachycardia, rate of 103, pr 154, no stemi HPI General Mode of arrival: ambulatory . Date/Time Provider Initiated Documentation: 05/03/22 04:12 . Limitations to Documentation: no limitations . Information obtained by: patient . History of Present Illness 56 year old F presents to the emergency department with the chief complaint of fever, described as moderate, Patient reports no radiation. Patient started experiencing this day(s) (2) and it has been constant. No relieving factors improve symptom(s), No exacerbating factors reported . Patient notes no other symptoms.. Patient did receive the following treatments prior to arrival, none Related Data Home Medications Medication Instructions Recorded Confirmed acetaminophen 500 mg tablet 1,000 mg PO Q8H PRN pain #90 tabs 08/15/19 10/30/21 trazodone 150 mg tablet 150 mg PO QHS PRN 08/25/20 10/30/21 loratadine 10 mg tablet (Claritin) 10 mg PO DAILY PRN 08/10/21 10/30/21 Lactobacillus acidophilus 1,200 mg PO DAILY #30 caps 10/06/21 10/30/21 (Acidophilus capsule) famotidine 20 mg tablet (Heartburn 20 mg PO QHS Heartburn #60 tabs 10/15/21 10/30/21 Relief (famotidine)) fluoxetine 10 mg capsule (Prozac) 10 mg PO DAILY 10/30/21 10/30/21 amoxicillin 875 mg-potassium 1 tab PO BID #14 tabs 05/03/22 clavulanate 125 mg tablet prednisone 20 mg tablet 60 mg PO DAILY 4 days #12 tabs 05/03/22 Previous Rx's Medication Instructions Recorded acetaminophen 500 mg tablet 1,000 mg PO Q8H PRN pain #90 tabs 08/15/19 Lactobacillus acidophilus 1,200 mg PO DAILY #30 caps 10/06/21 (Acidophilus capsule) famotidine 20 mg tablet (Heartburn 20 mg PO QHS Heartburn #60 tabs 10/15/21 Relief (famotidine)) amoxicillin 875 mg-potassium 1 tab PO BID #14 tabs 05/03/22 clavulanate 125 mg tablet prednisone 20 mg tablet 60 mg PO DAILY 4 days #12 tabs 05/03/22 Allergies Allergy/AdvReac Type Severity Reaction Status Date / Time azithromycin [From Zithromax] Allergy Severe Rash Verified 10/30/21 08:38 clindamycin Allergy Severe Rash Verified 10/30/21 08:38 pineapple Allergy Severe Other (See Verified 10/30/21 08:38 Comment) doxycycline AdvReac Severe Rash Verified 10/30/21 08:38 sulfamethoxazole AdvReac Severe RASH Verified 10/30/21 08:38 [From Bactrim] trimethoprim [From Bactrim] AdvReac Severe RASH Verified 10/30/21 08:38 Sulfa (Sulfonamide AdvReac Intermediate Skin Rash Verified 10/30/21 08:38 Antibiotics) General Stated Complaint: RespSymp RYLEE: 3 Review of Systems All systems reviewed & are unremarkable except as noted in HPI and below Constitutional Constitutional: Denies weakness Eyes Eyes: Denies loss of vision ENT Ears, Nose, Mouth, and Throat: Denies change in voice Respiratory Respiratory: Denies cough Gastrointestinal Gastrointestinal: Denies vomiting Genitourinary Genitourinary: Denies dysuria Musculoskeletal Musculoskeletal: Denies joint swelling Neurologic Neurologic: Denies loss of vision and Denies weakness PFSH All Active Problems Shortness of breath (Acute) Cough (Acute) Cellulitis (Acute) Tubular adenoma of colon (Acute) Hospital discharge follow-up (Acute) Acute diverticulitis (Acute) Rectal cyst (Acute) Adenomatous colon polyp (Acute) Diverticula of colon (Acute) Smoker (Chronic) Depression (Chronic) Change in bowel habits (Acute) History of total left knee replacement (Acute 08/14/19) Medical History Breast cancer, left breast Diarrhea Estrogen receptor positive status (ER+) Heart murmur 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 Vivar Hx of partial mastectomy left Lipoma of back Excision ~2009 Previous section x2 Status post arthroscopy of right knee Status post surgery for recurrent dislocation of shoulder Status post total knee replacement, left (08/14/19) Social History Smoking/Tobacco Use Status: Current every day Tobacco Type: cigarettes Smoking risk assessment performed?: Yes Alcohol Intake: current Alcohol Intake frequency: holidays/special occasions only Drug use: Never Substance use type: former substance user Details: Former opiates addiction sober since 2019 per pt. Current gender identity: female Do you feel safe at home: Yes Do you feel safe in your relationship?: Yes Exam Const Orientation: alert HENMT Head: normal to inspection Ears: external ears normal General nose exam: external nose normal Mouth: moist mucous membranes Eyes General: appearance normal, both eyes and all related structures Neck Neck: normal visual inspection Chest Chest: no crepitus and no masses Resp Auscultation: wheezes Cardio Jugular venous pressure: no JVD Rate: regular rate Heart Sounds: no murmurs GI Palpation: soft and tender Skin General skin exam: elasticity normal Neuro General: patient alert and patient oriented x3 Extrem General: normal to inspection Psych Mental Status: mental status grossly normal Course Vital Signs Vital signs: Vital Signs Temperature 38.0 C H 05/03/22 04:11 Pulse 103 H 05/03/22 04:11 Respiratory Rate 25 H 05/03/22 04:11 Blood Pressure 154/84 H 05/03/22 04:11 Pulse Oximetry 97 05/03/22 04:11 Temperature 38.0 C H 05/03/22 04:11 Temperature Source Oral 05/03/22 04:11 Pulse 103 H 05/03/22 04:11 Respiratory Rate 25 H 05/03/22 04:11 Blood Pressure 154/84 H 05/03/22 04:11 Blood Pressure Position Sitting 05/03/22 04:11 Pulse Oximetry 97 05/03/22 04:11 Oxygen Delivery Method Room Air 05/03/22 04:11 Oxygen Flow Rate 0 05/03/22 04:11 Pain Level 8 05/03/22 04:11 Lab/Test Results Lab/Test Results: 05/03/22 04:19 Blood Blood Culture - Pending 05/03/22 04:19 Blood Blood Culture - Pending
[2022-05-03 04:36] LABS: Source Nasal/Nares
[2022-05-03 04:38] LABS: Abs Immature Grans 0.09 10^3/uL (0.0-0.06); Basophils % 0.2; Eosinophils % 0.1; HCT 43.5 % (36.0-46.0); HGB 14.8 g/dL (11.2-15.7); Immature Grans % 0.5; Lymphocytes % 6.7; MCH 30.2 pg (27.0-33.0); MCV 89 fL (80-95); MPV 9.1 fL (8.0-11.0); Monocytes % 4.3; Neutrophils % 88.2; Platelet Count 243 10^3/uL (130-400); RDW 14.6 % (11.7-14.6); WBC 18.69 10^3/uL (4.4-10.8)
[2022-05-03 04:39] VITALS: PULSE 92; RESP 21; RESP 8; O2SAT 96
[2022-05-03] MEDS: Albuterol/Ipratropium 3 ML UPD VIAL UPD (04:39)
[2022-05-03] MEDS: Ketorolac 15 MG/ML VIAL IVP (04:39)
[2022-05-03] MEDS: Dexamethasone 10 MG/ML VIAL IVP (04:39)
[2022-05-03] MEDS: Normal Saline 1,000 ML 1000 ML IV (04:40)
[2022-05-03 04:45] LABS: Absolute Basophil Count 0.04 10^3/uL (0.0-0.2); Absolute Eosinophil Count 0.02 10^3/uL (0.0-0.7); Absolute Lymphocyte Count 1.25 10^3/uL (1.2-3.4); Absolute Neutrophil Count 16.48 10^3/uL (1.2-6.7)
[2022-05-03] MEDS: diphenhydrAMINE 50 MG/ML VIAL 25 MG IVP (04:49)
[2022-05-03 04:52] LABS: INR 1.1 (0.9-1.1); PTT Activated 33.7 sec (21.5-31.9)
[2022-05-03 04:58] LABS: ALT 30 U/L (14-59); AST 21 U/L (15-37); Albumin 3.5 g/dL (3.4-5.0); Alkaline Phosphatase 102 U/L (46-116); Anion Gap 11.7 mmol/L (3-11); BUN 11 mg/dL (7-18); Bilirubin, Total 0.6 mg/dL (0.2-1.0); CO2 24.3 mmol/L (21.0-32.0); CREATININE 0.8 mg/dL (0.55-1.02); Calcium 9.3 mg/dL (8.5-10.1); Chloride 97 mmol/L (98-107); Estimated GFR 85.35 (mL/min/1.73m2); Glucose 145 mg/dL (74-106); Lipase 19 U/L (16-77); Magnesium 1.8 mg/dL (1.8-2.4); Potassium 3.9 mmol/L (3.5-5.1); Sodium 133 mmol/L (136-145); Total Protein 7.8 g/dL (6.4-8.2)
[2022-05-03 04:59] LABS: Troponin I < 50 ng/L (<or=60)
[2022-05-03 05:08] LABS: COVID-19 PCR Negative (Negative)
[2022-05-03] MEDS: Normal Saline Flush 10 ML SYR IVP (05:14)
[2022-05-03] MEDS: Normal Saline - Diluent 50 ML VIAL IJ (05:14)
[2022-05-03] MEDS: Omnipaque 350 MG/ML 100 ML BTL IJ (05:14)
--- NOTE | 2022-05-03 06:07 | DI.VRAD_ITS ---
PROCEDURE INFORMATION: Exam: CTA Chest With Contrast CTA Abdomen With Contrast Exam date and time: 05/03/2022 5:16 AM Age: 56 years old Clinical indication: Abdominal pain; Localized; Other: Chest pain, SOB; Prior surgery; Surgery date: 6+ months; Surgery type: Left partial mastectomy; Patient HX: Shortness of breath, chest pain, upper abd pain, rash; Additional info: HX of breast CA, TECHNIQUE: Imaging protocol: Computed tomographic angiography of the chest with contrast. Computed tomographic angiography of the abdomen with contrast. 3D rendering (Not supervised by radiologist): MIP and/or 3D reconstructed images were created by the technologist. Radiation optimization: All CT scans at this facility use at least one of these dose optimization techniques: automated exposure control; mA and/or kV adjustment per patient size (includes targeted exams where dose is matched to clinical indication); or iterative reconstruction. Contrast material: OMNIPAQUE 350; Contrast volume: 100 ml; Contrast route: INTRAVENOUS (IV); COMPARISON: CR XR CHEST 2V PA LATERAL 11/21/2020 2:59 PM FINDINGS: VASCULATURE: Pulmonary arteries: No pulmonary embolism identified. Aorta: No thoracic or abdominal aortic aneurysm or dissection. Celiac trunk and mesenteric arteries: Celiac artery, superior mesenteric artery, and inferior mesenteric artery widely patent Renal arteries: Right and left renal arteries widely patent. Mild atherosclerotic calcification at the renal artery origins bilaterally. Right iliac arteries: Right common iliac, internal iliac, and external iliac arteries widely patent. Right femoral/popliteal arteries: Right common femoral and visualized proximal right superficial femoral arteries widely patent. Left iliac arteries: Left common iliac, internal iliac, and external iliac arteries widely patent. Left femoral/popliteal arteries: Left common femoral and visualized proximal superficial femoral arteries widely patent. Thyroid: Thyroid gland partially obscured by streak artifact but grossly normal in size. 1.5 cm peripherally calcified hypoattenuating indeterminate left thyroid lesion, partially obscured by artifact but possibly a colloid cyst or hypoattenuating nodule. CHEST: Lungs: Mild dependent atelectasis. No pulmonary consolidation. Pleural spaces: No pleural effusion or pneumothorax. Heart: Normal sized heart. ABDOMEN AND PELVIS: Liver: Normal appearing liver. Gallbladder and bile ducts: See Urinary bladder finding. Pancreas: Normal appearing pancreas. Spleen: Tiny calcified splenic granulomas. Adrenal glands: Normal appearing adrenal glands. Kidneys and ureters: Normal appearing kidneys. No hydronephrosis. Stomach and bowel: No oral contrast. Stomach partially decompressed. No small bowel dilatation to suggest obstruction. Colon largely well evacuated of fecal material. No evidence of diverticulitis or colitis. Appendix: Normal appendix. Intraperitoneal space: No gross ascites or free air. Small fat containing left inguinal region hernia. Urinary bladder: Urinary bladder moderately distended. No calcified gallstones. Common bile duct dilated to 13 mm. No intrahepatic biliary dilatation. Urinary bladder partially collapsed but grossly unremarkable, as seen. Reproductive: Anteverted uterus, normal in size. Normal-appearing ovaries. Lymph nodes: No pathologically enlarged mediastinal or hilar lymph nodes. No pathologically enlarged mesenteric, retroperitoneal, or pelvic sidewall lymph nodes. Bones/joints: No acute fracture seen among the bones of the chest, abdomen, or pelvis. Spinal degenerative change with discogenic degeneration, anterior osteophytes, and Schmorl's nodes at several levels. Grade 1 anterolisthesis of L4 on L5. Bilateral facet arthrosis in the lumbar spine. Soft tissues: Asymmetric skin thickening in the left breast. Direct inspection recommended. Known history of breast cancer by report. Architectural deformity of the inferior left breast. Prior surgery? Correlation with procedure history recommended. Tiny fat-containing ventral hernia at the umbilicus, doubtful clinical significance. IMPRESSION: 1. Asymmetric skin thickening in the left breast. Direct inspection recommended. Known history of breast cancer by report. 2. No thoracic or abdominal aortic aneurysm or dissection. 3. Moderate gallbladder distention. Prominent dilatation of the common bile duct measuring 13 mm. No calcified gallstones. Clinical correlation is recommended. If there is concern for distal biliary obstruction, MRI with MRCP could be obtained for additional evaluation. 4. No acute bowel pathology demonstrated. Dictated and Authenticated by: Harvinder Downey MD. Ordering:MARY Evans MD
[2022-05-03] MEDS: Ondansetron 4 MG/2 ML VIAL IVP (06:11)
[2022-05-03 06:36] LABS: COVID-19 PCR Negative (Negative); Influenza A PCR Negative (Negative); Influenza B PCR Negative (Negative); RSV PCR Negative (Negative)
[2022-05-03 06:51] LABS: Source Nasopharynx
[2022-05-03] MEDS: cefTRIAXone 2 GM/50 ML BAG IVPB (06:56)
[2022-05-03 06:59] VITALS: BP 187/115; PULSE 94; RESP 23; TEMP 37.1; O2SAT 97
[2022-05-03] MEDS: Albuterol HFA 8 GM 60 PUFF INH IH (07:32)
== END 2022-05-03 07:34 | disposition home or self-care (01) ==
PROVIDERS: Emergency Provider Emergency Medicine; PCP Internal Medicine
DX: R06.02 Shortness of breath (principal); R05.9 Cough, unspecified; L03.90 Cellulitis, unspecified; F32.A Depression, unspecified; K83.8 Other specified diseases of biliary tract; Z20.822 Contact with and (suspected) exposure to COVID-19
CPT/HCPCS: 36410; 71275; 74177; 80053; 83690; 87040; 87635; 87637; 93005; 96361; 96365; 96372; 96375; 99284; 83735; 84484; 85025; 85610; 85730; 93010; J1100; J1200; J1885; J2405; J3490; J7620

== ENCOUNTER 2022-08-13 12:54 | Outpatient (REF) | payer MEDICAID, SELFPAY ==
[2022-08-13 19:25] LABS: Hemoglobin A1C 5.9 % (<5.7)
[2022-08-13 19:33] LABS: TSH (W/Ref FT4) 1.71 uIU/mL (0.36-3.74)
== END 2022-08-13 12:55 | disposition home or self-care (01) ==
LOC: NCHCN 12:54
PROVIDERS: PCP Internal Medicine; Visit Provider Physician Assistant
DX: R00.2 Palpitations (principal); E78.5 Hyperlipidemia, unspecified; E66.01 Morbid (severe) obesity due to excess calories; R73.09 Other abnormal glucose
CPT/HCPCS: 83036; 84443

== ENCOUNTER 2022-08-23 09:50 | Outpatient (REF) | payer MEDICAID, SELFPAY ==
[2022-08-23 19:42] LABS: Calculated LDL 70 mg/dL (<100); Cholesterol 131 mg/dL (<200); HDL Cholesterol 41 mg/dL (40-60); Triglyceride 102 mg/dL (<150)
== END 2022-08-23 09:51 | disposition home or self-care (01) ==
LOC: NCHCN 09:50
PROVIDERS: PCP Internal Medicine; Visit Provider Physician Assistant
DX: E78.5 Hyperlipidemia, unspecified (principal); R00.2 Palpitations
CPT/HCPCS: 80061

== ENCOUNTER 2022-09-23 09:00 | Outpatient (CLI) | payer SELFPAY | END 2022-09-23 09:01 | disposition home or self-care (01) | PROVIDERS: PCP Internal Medicine; Visit Provider Physician Assistant | DX: R00.2 Palpitations (principal) | CPT/HCPCS: 93270 ==

== ENCOUNTER 2022-11-01 07:55 | Outpatient (CLI) | payer SELFPAY ==
--- NOTE | 2022-11-01 09:02 | W.CARDEVENT ---
Date of service: 11/01/22 Time of Service: 09:02 Cardiac Event Recorder Referring Provider:: Christiane Green Indications:: Palpitations Cardiac Event Note: This is a 30-day cardiac event monitor ordered for palpitations. Patient was monitored for 27 days and 8 hours Predominant rhythm was sinus with an average heart rate of 81. Minimum was 57, maximum 109 There were rare atrial and ventricular ectopic beats. There was one 6 beat run of nonsustained ventricular tachycardia There was no atrial fibrillation, no SVT Patient had multiple sinus pauses ranging from 3-8 beats in duration. All of these appear to occur during sleep and were asymptomatic. This finding raises concern for sleep apnea No patient symptoms were reported
== END 2022-11-01 07:56 | disposition home or self-care (01) ==
LOC: CARDOPNVT 07:55
PROVIDERS: PCP Internal Medicine; Visit Provider Internal Medicine Cardiovascular Disease
DX: R00.2 Palpitations (principal); I47.20 Ventricular tachycardia, unspecified

== ENCOUNTER 2023-01-26 11:19 | Outpatient (REF) | payer BC, SELFPAY ==
[2023-01-26 20:06] LABS: HCT 45.4 % (36.0-46.0); HGB 14.4 g/dL (11.2-15.7); MCHC 31.7 % (32.0-36.0); MCV 95 fL (80-95); MPV 11.2 fL (8.0-11.0); Platelet Count 186 10^3/uL (130-400); RDW 13.5 % (11.7-14.6); RDW-SD 47.8 fL; WBC 8.01 10^3/uL (4.4-10.8)
[2023-01-26 20:34] LABS: Ferritin 76 ng/mL (8-252)
[2023-01-26 20:58] LABS: Iron 105 ug/dL (50-170); Total Iron Binding Capacity 373 ug/dL (250-450); Transferrin Sat 28 % (15-50)
== END 2023-01-26 11:20 | disposition home or self-care (01) ==
LOC: NCHCN 11:19
PROVIDERS: PCP Internal Medicine; Visit Provider Physician Assistant
DX: G47.61 Periodic limb movement disorder (principal)
CPT/HCPCS: 85027; 82728; 83540; 83550

== ENCOUNTER 2024-04-02 15:40 | Emergency (ER) | payer SELFPAY ==
[2024-04-02] VITALS (11 sets, daily range): BP systolic 151; BP diastolic 90; PULSE 73–87; RESP 16–23; TEMP 36.8; O2SAT 93–96
--- NOTE | 2024-04-02 17:36 | W.ED.GENAD ---
Discharge Plan Disposition Patient Disposition: Home Condition: Good Discharge Details Clinical Impression: Cellulitis Primary Care Provider: Jemal Schmidt ED Provider: Kamila Gutierrez Home Meds and New Rx's Prescriptions: New cephalexin 500 mg capsule 500 mg PO QID 14 Days Qty: 52 0RF Continued loratadine [Claritin] 10 mg tablet 10 mg PO DAILY PRN rosuvastatin 40 mg tablet 40 mg PO DAILY aspirin [Adult Aspirin Regimen] 81 mg tablet,delayed release (DR/EC) 81 mg PO DAILY acetaminophen 500 mg tablet 1,000 mg PO Q8H PRN (Reason: pain) Qty: 90 3RF Patient Comments: 09/15/21 500mg tylenol Discharge Instructions Instructions: Cellulitis (Skin Infection), Adult ED Additional Instructions: Antibiotic four times a day for the next 14 days. Call your primary care doctor in the morning to schedule an appointment to be seen within the next 72 hours to follow up on your visit here. Return to the emergency department for new or worsening symptoms including fever that does not respond to home medication, worsening rash, vomiting, or if you have any other concerns. Stand Alone Forms: Work Release Referrals: Jemal Schmidt [Primary Care Provider] - [facility] General Mode of arrival: ambulatory. Date/Time Provider Initiated Documentation: 04/02/24 16:14. Limitations to Documentation: no limitations. Information obtained by: patient and old records reviewed (express care note 03/13/24). HPI Narrative: 58yo F presenting with concern for cellulitis on her abdomen. Has large area of warmth and redness, no pruritis. No new topical exposures. Does not recall any injury to the area. Has had prior episodes of same. Was most recently diagnosed with this three weeks ago and prescribe a 10d course of Augmentin which did seem to improve the rash but it returned after she completed her abx. Febrile at home up to 101F, improved with tyelnol and ibuprofen. Otherwise in her usual state of health with no chills, other rash, nausea, vomiting, abdominal pain, or other concerns. Related Data Home Medications ?Medication ?Instructions ?Recorded ?Confirmed acetaminophen 500 mg tablet 1,000 mg (2 x 500 mg) PO Q8H PRN 08/15/19 04/02/24 pain #90 tabs loratadine 10 mg tablet (Claritin) 10 mg PO DAILY PRN 08/10/21 04/02/24 rosuvastatin 40 mg tablet 40 mg PO DAILY 10/04/22 04/02/24 aspirin 81 mg tablet,delayed 81 mg PO DAILY 04/02/24 04/02/24 release (Adult Aspirin Regimen) cephalexin 500 mg capsule 500 mg PO QID 14 days #52 caps 04/02/24 Previous Rx's ?Medication ?Instructions ?Recorded acetaminophen 500 mg tablet 1,000 mg (2 x 500 mg) PO Q8H PRN 08/15/19 pain #90 tabs cephalexin 500 mg capsule 500 mg PO QID 14 days #52 caps 04/02/24 Allergies Allergy/AdvReac Type Severity Reaction Status Date / Time azithromycin (From Zithromax) Allergy Severe Rash Verified 04/02/24 15:58 clindamycin Allergy Severe Rash Verified 04/02/24 15:58 pineapple Allergy Severe Other (See Verified 04/02/24 15:58 Comment) doxycycline AdvReac Severe Rash Verified 04/02/24 15:58 sulfamethoxazole (From AdvReac Severe RASH Verified 04/02/24 15:58 Bactrim) trimethoprim (From Bactrim) AdvReac Severe RASH Verified 04/02/24 15:58 Sulfa (Sulfonamide AdvReac Intermediate Skin Rash Verified 04/02/24 15:58 Antibiotics) General Stated Complaint: Cellulitis RYLEE: 3 Review of Systems Narrative: see HPI Exam Narrative Exam Narrative: General: Alert, well appearing, well nourished, in no acute distress. Head: Normocephalic, atraumatic Neck: Trachea midline, ?Neck supple. ENT: ?MMM.? No oropharygeal lesions or exudate. Cardiac: ?RRR, no murmurs appreciated Resp: No respiratory distress. CTAB. Abd: ?Soft, non-distended, nontender Skin: Warmth and erythema to upper abdomen, no skin breakdown or weeping, does not involve skin folds. Extremities: ?No deformities.? No peripheral edema. Neurologic: GCS 15. ? Moves all extremities freely against gravity Course Vital Signs Vital signs: Vital Signs Temperature 36.8 C 04/02/24 15:53 Pulse 83 04/02/24 15:53 Respiratory Rate 16 04/02/24 15:53 Blood Pressure 151/90 H 04/02/24 15:53 Pulse Oximetry 94 04/02/24 15:53 Temperature 36.8 C 04/02/24 15:53 Temperature Source Oral 04/02/24 15:53 Pulse 83 04/02/24 15:53 Respiratory Rate 16 04/02/24 15:53 Blood Pressure 151/90 H 04/02/24 15:53 Blood Pressure Position Sitting 04/02/24 15:53 Pulse Oximetry 94 04/02/24 15:53 Oxygen Delivery Method Room Air 04/02/24 15:53 Oxygen Flow Rate 0 04/02/24 15:53 Pain Level 2 04/02/24 15:53 Medical Decision Making 58yo F presenting with concern for cellulitis on her abdomen. Was most recently diagnosed with this three weeks ago and prescribe a 10d course of Augmentin which did seem to improve the rash but it returned after she completed her abx. Hypertensive on arrival, vital signs otherwise reassuring. Systemically well aside from report of temp of 101F at home. Most of upper abdomen warm and erythrematous; no weeping, lesions, or breaks in skin. Does not appear candidal. Not particularly suggestive of dermatitis. Cellulitis certainly possible and given responsive (albeit incomplete) to antibiotics seems likely. Not overtly septic; given report of fevers at home will send labs. Labs reviewed as below, CBC reassuring wtih no leukocytosis, CMP with no actionable abnormalities, lactate normal. Not septic; would not send cultures or admit. Will treat with extended course (14d) of cephalexin. Discharged home; discharge instructions and return precautions were reviewed with patient who verbalized understanding. All questions were answered and she is in full agreement with the plan. Lab Data Lab results reviewed: Yes I reviewed the patient's lab results. Labs: Laboratory Tests Range/Units 04/02/24 17:29 WBC (4.4-10.8) 10^3/uL 8.45 RBC (3.93-5.22) 10^6/uL 5.07 Hgb (11.2-15.7) g/dL 15.4 Hct (36.0-46.0) % 46.0 MCV (80-95) fL 91 MCH (27.0-33.0) pg 30.4 MCHC (32.0-36.0) % 33.5 RDW (11.7-14.6) % 13.2 Plt Count (130-400) 10^3/uL 172 MPV (8.0-11.0) fL 9.6 Immature Gran % % 0.4 Neutrophils % % 65.9 Lymphocytes % % 22.5 Monocytes % % 9.6 Eosinophils % % 1.5 Basophils % % 0.1 Nucleated RBC % (0.0-0.3) % 0.0 Absolute Neutrophils (1.2-6.7) 10^3/uL 5.57 Absolute Lymphocytes (1.2-3.4) 10^3/uL 1.90 Absolute Monocytes (0.1-0.8) 10^3/uL 0.81 H Absolute Eosinophils (0.0-0.7) 10^3/uL 0.13 Absolute Basophils (0.0-0.2) 10^3/uL 0.01 VBG Lactate (0.6-1.4) mmol/L 1.0 Sodium (136-145) mmol/L 141 Potassium (3.5-5.1) mmol/L 3.9 Chloride (98-107) mmol/L 102 Carbon Dioxide (21.0-32.0) mmol/L 27.9 Anion Gap (3-11) mmol/L 11.1 H BUN (7-18) mg/dL 9 Creatinine (0.55-1.02) mg/dL 0.7 Est GFR (CKD-EPI 2020) (mL/min/1.73m2) 98.95 Glucose (74-106) mg/dL 129 H Calcium (8.5-10.1) mg/dL 9.0 Total Bilirubin (0.2-1.0) mg/dL 0.39 AST (15-37) U/L 17 ALT (14-59) U/L 19 Alkaline Phosphatase (46-116) U/L 96 Total Protein (6.4-8.2) g/dL 7.7 Albumin (3.4-5.0) g/dL 3.0 L Quality:SDOH Health Related Social Needs: No Data to Display PFSH All Active Problems Cellulitis (Acute) Palpitations (Acute) Tubular adenoma of colon (Acute) Hospital discharge follow-up (Acute) Acute diverticulitis (Acute) Rectal cyst (Acute) Adenomatous colon polyp (Acute) Diverticula of colon (Acute) Smoker (Chronic) Depression (Chronic) Change in bowel habits (Acute) History of total left knee replacement (Acute 08/14/19) Medical History Diarrhea Narcotic dependence 2013 rehab/recovery Insomnia Breast cancer, left breast Estrogen receptor positive status (ER+) Hyperlipidemia Morbid obesity 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 Current gender identity: female Do you feel safe at home: Yes Do you feel safe in your relationship?: Yes PAWSS Have you Been Recently Intoxicated or Drunk Within the Last 30 days?: No Have you Ever Experienced Previous Episodes of Alcohol Withdrawal?: No Have you ever Experienced Withdrawal Seizures?: No Have you ever Experienced Delirium Tremens(DT)s?: No Have you ever undergone Alcohol Rehabilitation Treatment (i.e, inpt ot outpatient treatment programs)?: No Have you ever Experienced Blackouts?: No Have you ever Combined Alcohol with other Downers within the last 90 days?: No Have you ever Combined Alcohol with any other Substance of Abuse during the last 90 days?: No Positive Blood Alcohol level on Presentation? [PCS.BAL]: No Evidence of Increased Autonomic Activity (i.e. HR>120, tremor, sweating, agitation, nausea)?: No Result: 0
[2024-04-02 17:39] LABS: Abs Immature Grans 0.03 10^3/uL (0.0-0.06); Absolute Basophil Count 0.01 10^3/uL (0.0-0.2); Absolute Eosinophil Count 0.13 10^3/uL (0.0-0.7); Absolute Monocyte Count 0.81 10^3/uL (0.1-0.8); Absolute Neutrophil Count 5.57 10^3/uL (1.2-6.7); Basophils % 0.1 %; Eosinophils % 1.5 %; HGB 15.4 g/dL (11.2-15.7); Immature Grans % 0.4 %; Lymphocytes % 22.5 %; MCH 30.4 pg (27.0-33.0); MCHC 33.5 % (32.0-36.0); MCV 91 fL (80-95); MPV 9.6 fL (8.0-11.0); Monocytes % 9.6 %; Neutrophils % 65.9 %; Platelet Count 172 10^3/uL (130-400); RBC 5.07 10^6/uL (3.93-5.22); RDW 13.2 % (11.7-14.6); RDW-SD 43.8 fL; WBC 8.45 10^3/uL (4.4-10.8)
[2024-04-02 17:55] LABS: ALT 19 U/L (14-59); AST 17 U/L (15-37); Alkaline Phosphatase 96 U/L (46-116); Anion Gap 11.1 mmol/L (3-11); BUN 9 mg/dL (7-18); Bilirubin, Total 0.39 mg/dL (0.2-1.0); CO2 27.9 mmol/L (21.0-32.0); CREATININE 0.7 mg/dL (0.55-1.02); Chloride 102 mmol/L (98-107); Estimated GFR 98.95 (mL/min/1.73m2); Glucose 129 mg/dL (74-106); Potassium 3.9 mmol/L (3.5-5.1); Sodium 141 mmol/L (136-145); Total Protein 7.7 g/dL (6.4-8.2)
[2024-04-02] MEDS: Cephalexin 500 MG CAP, 4 CAPS/BTL 2000 MG PO (18:43)
[2024-04-02] MEDS: Cephalexin 500 MG CAP PO (18:43)
== END 2024-04-02 18:46 | disposition home or self-care (01) ==
PROVIDERS: Emergency Provider Student in an Organized Health Care Education/Training Program; PCP Internal Medicine
DX: L03.311 Cellulitis of abdominal wall (principal)
CPT/HCPCS: 80053; 99283; 83605; 85025

== ENCOUNTER 2024-04-25 08:31 | Outpatient (CLI) | payer SELFPAY | END 2024-04-25 08:32 | disposition home or self-care (01) | LOC: DI.CARD 08:32 | PROVIDERS: PCP Internal Medicine; Visit Provider Internal Medicine Cardiovascular Disease | CPT/HCPCS: 93010 ==